=== PATIENT | female | born 1945 | race Caucasian/White ===

== ENCOUNTER 2018-09-09 10:04 | Inpatient (IN) | payer MEDICARE ==
--- NOTE | 2018-09-09 10:49 | PDOC ---
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) Past History - Past Medical History Allergies/Adverse Reactions: Allergies Allergy/AdvReac Type Severity Reaction Status Date / Time No Known Allergies Allergy Verified 09/09/18 10:10 Home Medications: Ambulatory Orders Aspirin Coated [Ecotrin -] 81 mg PO DAILY #30 tablet.ec 02/15/16 Clopidogrel Bisulfate [Plavix -] 75 mg PO DAILY #30 tablet 02/15/16 Levothyroxine [Synthroid -] 75 mcg PO DAILY@0700 #30 tablet 02/15/16 Nebivolol [Bystolic -] 10 mg PO DAILY #30 tab 02/15/16 Ranolazine [Ranexa -] 1,000 mg PO BID #30 tab 02/15/16 metFORMIN HCL [Glucophage -] 500 mg PO BID@0700,1630 #30 tablet 02/15/16 levoFLOXacin [Levaquin -] 250 mg PO DAILY #7 tablet 09/16/17 Cardiac Disorders: Yes COPD: No Diabetes: Yes HTN: Yes Hypercholesterolemia: Yes - Surgical History Abdominal Surgery: Yes (HERNIA) Appendectomy: Yes Cardiac Surgery: Yes (STENT) - Suicide/Smoking/Psychosocial Hx Smoking History: Never smoked Have you smoked in the past 12 months: No Information on smoking cessation initiated: No Hx Alcohol Use: No Drug/Substance Use Hx: No Substance Use Type: None *Physical Exam - Vital Signs Last Vital Signs Temp Pulse Resp BP Pulse Ox 98.4 F 56 L 16 150/96 100 09/09/18 10:11 09/09/18 10:11 09/09/18 10:11 09/09/18 10:11 09/09/18 10:11 - Physical Exam General Appearance: No: Apparent Distress HEENT: positive: EOMI, CINDY, Other (no nystagmus) Respiratory/Chest: positive: Lungs Clear, Normal Breath Sounds. negative: Respiratory Distress Cardiovascular: positive: Regular Rhythm, Regular Rate, S1, S2. negative: Murmur Gastrointestinal/Abdominal: positive: Normal Bowel Sounds, Soft. 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 negative: Sensory Deficit, Confused, Disoriented ED Treatment Course - LABORATORY CBC & Chemistry Diagram: 09/09/18 11:06 09/09/18 12:04 - ADDITIONAL ORDERS Additional order review: Laboratory Results 09/09/18 10:44 POC Glucometer 180 09/09/18 10:44 POC Glucometer 180 Medical Decision Making - Medical Decision Making 73 y/o F poor historian hx of HTN, NIDDM, hypothyroidism, CAD s/p PCI x1 presents with nausea, feeling off-balance and B/L temporal KAT x 4 days. Also states her BP was high at home, but unsure of how high and uncertain of what BP meds she currently takes. Does not describe dizziness as feeling lightheaded or vertiginous in nature; states dizziness is mild in nature and can be worse with standing up. Denies fever, sob, cp, abd pain, n/v, visual changes, numbness/ tingling/weakness of extremities. PE with no focal deficits FS checked and was 180 Consider ACS, infection Plan: Labs, EKG, orthostats 09/09/18 10:49 EKG shows sinus bradycardia at 55 bpm, 1st degree AV block 09/09/18 11:38 Orthostats: lying BP 168/55, HR 65 sitting BP 155/52, HR 56 standing BP 159/69, HR 76 Given orthostatic, was started on 1 L of NS fluids Later labs returned, with sodium of 121; corrected Na is 122 Patient's meds reviewed and not on diuretics; also does not appear fluid overloaded Patient to be admitted for further management Serum and urine osmolality added on D/W Dr. Hwang and patient admitted; IVF stopped given hyponatremia 09/09/18 13:31 *DC/Admit/Observation/Transfer Diagnosis at time of Disposition: Hyponatremia - Discharge Dispostion Condition at time of disposition: Stable Decision to Admit order: Yes - Referrals Referrals: Darrius Holman MD [Primary Care Provider] - - Patient Instructions - Post Discharge Activity
[2018-09-09 11:25] LABS: BASO % 0.8 % (0-2.0); EOS % 5.8 % (0-4.5); HEMATOCRIT 35.2 % (32.4-45.2); HEMOGLOBIN 12.2 GM/dL (10.7-15.3); MCHC 34.7 g/dl (32.0-36.0); MEAN CELL VOLUME 89.4 fl (80-96); MEAN PLT VOLUME 7.5 fl (7.5-11.1); MONO % 8.1 % (3.8-10.2); NEUT % 63.3 % (42.8-82.8); PLATELET COUNT 428 K/MM3 (134-434); RBC 3.93 M/mm3 (3.60-5.2); RDW 13.4 % (11.6-15.6)
[2018-09-09] MEDS ORDERED: SODIUM CHLORIDE 1,000 ML IV STA (12:04)
[2018-09-09 12:08] LABS: EPI CELLS 2.8 /HPF (0-5/HPF); HYALINE CASTS 2 /lpf (0-8); PH,URINE 5.5 (5.0-8.0); URINE APPEARANCE CLEAR; URINE BILIRUBIN NEGATIVE (NEGATIVE); URINE COLOR YELLOW; URINE GLUCOSE (UA) NEGATIVE (NEGATIVE); URINE KETONE NEGATIVE (NEGATIVE); URINE LEUK ESTERASE 1+ (NEGATIVE); URINE NITRITE NEGATIVE (NEGATIVE); URINE PROTEIN NEGATIVE (NEGATIVE); URINE RBC 1 /hpf (0-4); URINE UROBILINOGEN 0.2 mg/dL (0.2-1.0); URINE WBC 12 /hpf (0-5)
[2018-09-09 13:05] LABS: ALBUMIN 4.2 g/dl (3.4-5.0); ALK PHOS 67 U/L (45-117); ANION GAP 6 MMOL/L (8-16); BILIRUBIN,TOTAL 0.6 mg/dL (0.2-1); BLOOD UREA NITROGEN 16.9 mg/dL (7-18); CALCIUM 9.5 mg/dL (8.5-10.1); CHLORIDE 90 mmol/L (98-107); CO2 25 mmol/L (21-32); CREATININE 1.1 mg/dL (0.55-1.3); GLUCOSE,RANDOM 123 mg/dL (74-106); POTASSIUM 5.1 mmol/L (3.5-5.1); SGOT/AST 15 U/L (15-37); SGPT/ALT 22 U/L (13-61); SODIUM 121 mmol/L (136-145); TOT PROT 7.4 g/dl (6.4-8.2)
[2018-09-09 15:57] VITALS: BMI 22.6
[2018-09-09] MEDS ORDERED: cefTRIAXone SODIUM 1 GM VIAL ONE (16:00)
[2018-09-09] MEDS ORDERED: DEXTROSE 5%-WATER - 50 ML IVPB ONE (16:01)
[2018-09-09] MEDS: ASPIRIN COATED 81 MG TABLET.EC PO SCH (16:04)
[2018-09-09] MEDS: CEFTRIAXONE 1 GM in DEXTROSE 5%-WATER - 50 ML IVPB SCH (16:04)
[2018-09-09] MEDS: metFORMIN HCL 500 MG TABLET (FP) PO SCH (16:04)
[2018-09-09] MEDS: CLOPIDOGREL BISULFATE 75 MG TABLET (FP) PO SCH (16:04)
[2018-09-09] MEDS ORDERED: MELATONIN 5 MG TABLETS PO PRN (16:10)
[2018-09-09] MEDS: INSULIN SLIDING SCALE (NOVOLOG) 1 VIAL SQ SCH ×2 (16:35→21:55)
--- NOTE | 2018-09-09 16:51 | CONSULT ---
Consult Consult Specialty:: Nephrology Reason for Consultation:: hyponatremia - History of Present Illness Chief Complaint: nausea and loss of balance History of Present Illness: Pt is a 73 year old female with pmhx of DM, HTN, hypothyroidism, and CAD who presents with nausea and loss of balance. She was found to be hyponatremic and I was called to evaluate her. She says that she has not had much appetite and has not been eating much food. She says that she tried to drink alot of water. She was not able to quantify how much but based on her description of the number of glasses she likely drinks more than three liters. She denies headache. She does feel that she has loss of balance. She denies dysuria or hematuria. She denies visual changes. - History Source History Provided By: Patient, Medical Record - Past Medical History Cardio/Vascular: Yes: CAD, HTN, Hyperlipdemia Gastrointestinal: Yes: GERD Endocrine: Yes: Diabetes Mellitus, Hypothyroidism - Past Surgical History Past Surgical History: Yes: Stent - Alcohol/Substance Use Hx Alcohol Use: No - Smoking History Smoking history: Never smoked Have you smoked in the past 12 months: No Home Medications - Allergies Allergies/Adverse Reactions: Allergies Allergy/AdvReac Type Severity Reaction Status Date / Time No Known Allergies Allergy Verified 09/09/18 10:10 - Home Medications Home Medications: Ambulatory Orders Aspirin Coated [Ecotrin -] 81 mg PO DAILY #30 tablet.ec 02/15/16 Clopidogrel Bisulfate [Plavix -] 75 mg PO DAILY #30 tablet 02/15/16 Levothyroxine [Synthroid -] 75 mcg PO DAILY@0700 #30 tablet 02/15/16 Nebivolol [Bystolic -] 10 mg PO DAILY #30 tab 02/15/16 Ranolazine [Ranexa -] 1,000 mg PO BID #30 tab 02/15/16 metFORMIN HCL [Glucophage -] 500 mg PO BID@0700,1630 #30 tablet 02/15/16 levoFLOXacin [Levaquin -] 250 mg PO DAILY #7 tablet 09/16/17 Family Disease History - Family Disease History Family History: Denies Review of Systems - Review of Systems Constitutional: reports: Loss of Appetite, Malaise. denies: Unintentional Wgt. Loss Eyes: reports: No Symptoms HENT: reports: No Symptoms Neck: reports: No Symptoms Cardiovascular: reports: No Symptoms Respiratory: reports: No Symptoms Gastrointestinal: reports: No Symptoms Genitourinary: reports: No Symptoms Musculoskeletal: reports: No Symptoms Integumentary: reports: No Symptoms Neurological: reports: No Symptoms Endocrine: reports: No Symptoms Hematology/Lymphatic: reports: No Symptoms Psychiatric: reports: No Symptoms Physical Exam Vital Signs: Vital Signs Temperature 97.9 F 09/09/18 15:51 Pulse Rate 63 09/09/18 15:51 Respiratory Rate 18 09/09/18 15:51 Blood Pressure 161/60 09/09/18 15:51 O2 Sat by Pulse Oximetry (%) 97 09/09/18 15:14 Constitutional: Yes: Calm Eyes: Yes: Conjunctiva Clear HENT: Yes: Atraumatic Neck: Yes: Supple Cardiovascular: Yes: S1, S2 Respiratory: Yes: CTA Bilaterally Gastrointestinal: Yes: Normal Bowel Sounds Renal/: Yes: WNL Musculoskeletal: Yes: WNL Edema: No Integumentary: Yes: WNL Neurological: Yes: Oriented Psychiatric: Yes: Oriented Labs: CBC, BMP 09/09/18 11:06 09/09/18 12:04 Laboratory Tests 09/09/18 09/09/18 09/09/18 11:06 11:33 11:33 WBC 9.0 Hgb 12.2 Sodium Potassium Chloride Carbon Dioxide Serum Osmolality Ur Specific [place] 1.008 L Urine Osmolality 241 L 09/09/18 09/09/18 12:04 12:04 WBC Hgb Sodium 121 L Potassium 5.1 Chloride 90 L Carbon Dioxide 25 Serum Osmolality 253 L Ur Specific [place] Urine Osmolality Problem List - Problems (1) Hyponatremia Code(s): E87.1 - HYPO-OSMOLALITY AND HYPONATREMIA Assessment/Plan Current Medications Generic Name Dose Route Start Last Admin Trade Name Freq PRN Reason Stop Dose Admin Aspirin 81 mg 09/09/18 15:15 09/09/18 16:04 Ecotrin - PO 81 mg DAILY JEREMY Administration Clopidogrel Bisulfate 75 mg 09/09/18 15:15 09/09/18 16:04 Plavix - PO 75 mg DAILY JEREMY Administration Ceftriaxone Sodium 1 gm/ 50 mls @ 200 mls/hr 09/09/18 15:15 09/09/18 16:04 Dextrose IVPB 200 mls/hr DAILY JEREMY Administration Protocol Insulin Aspart 1 vial 09/09/18 16:30 09/09/18 16:35 Novolog Vial Sliding Scale - SQ Not Given ACHS JEREMY Protocol Levothyroxine Sodium 75 mcg 09/10/18 07:00 Synthroid - PO DAILY@0700 JEREMY Melatonin 5 mg 09/09/18 16:10 Melatonin PO HS PRN INSOMNIA Metformin HCl 500 mg 09/09/18 16:30 09/09/18 16:04 Glucophage - PO 500 mg BID@0700,1630 JEREMY Administration Nebivolol 10 mg 09/09/18 15:15 Bystolic - PO DAILY JEREMY Ranolazine 1,000 mg 09/09/18 22:00 Ranexa - PO BID JEREMY Impression 1. hyponatremia - euvolemic 2. htn 3. dm 4. nausea 5. loss of balance 6. hypothyroidism 7. cad Plan - hyponatermia likely in part from polydipsia - urine osm and SG are low - restrict free water - repeat bmp and call me with results - pt was given saline in the ER - hold off fluids for now until we review labs - check urine sodium
[2018-09-09 17:50] LABS: ALBUMIN 4.5 g/dl (3.4-5.0); BILIRUBIN,TOTAL 0.6 mg/dL (0.2-1); BLOOD UREA NITROGEN 13.3 mg/dL (7-18); CALCIUM 9.8 mg/dL (8.5-10.1); POTASSIUM 4.5 mmol/L (3.5-5.1); TOT PROT 8.2 g/dl (6.4-8.2)
[2018-09-09] MEDS ORDERED: DEXTROSE 5%-WATER - 1,000 ML IV SCH (18:15)
[2018-09-09] MEDS: NEBIVOLOL 10 MG TABLET (FP) PO SCH (18:34)
[2018-09-09] MEDS ORDERED: INSULIN (NOVOLOG) ASPART 100 UNITS/ML 10ML VIAL ONE (21:04)
[2018-09-09] MEDS ORDERED: RANOLAZINE E.R. 500 MG TABLET (FP) ONE (21:04)
[2018-09-09 21:25] LABS: BILIRUBIN,TOTAL 0.6 mg/dL (0.2-1); CALCIUM 9.3 mg/dL (8.5-10.1); CREATININE 1.1 mg/dL (0.55-1.3); POTASSIUM 4.7 mmol/L (3.5-5.1); TOT PROT 7.2 g/dl (6.4-8.2)
[2018-09-09] MEDS: RANOLAZINE E.R. 1,000 MG TABLET (FP) PO SCH (21:58)
--- NOTE | 2018-09-09 22:34 | HP ---
Admitting History and Physical - Admission History of Present Illness: Pt is a 73 year old female with pmhx of DM, HTN, hypothyroidism, and CAD who presents with nausea and loss of balance. She was found to be hyponatremic w/ a Na+ of 121. She says that she has not had much appetite and has not been eating much food. She says that she tried to drink alot of water. She denies headache. She does feel that she has loss of balance and lightheaded and not feeling like herself.. She denies dysuria or hematuria. She denies visual changes. - Past Medical History Cardiovascular: Yes: CAD, HTN, Hyperlipdemia Gastrointestinal: Yes: GERD Endocrine: Yes: Diabetes Mellitus, Hypothyroidism - Past Surgical History Past Surgical History: Yes: Stent - Smoking History Smoking history: Never smoked Have you smoked in the past 12 months: No - Alcohol/Substance Use Hx Alcohol Use: No Home Medications - Allergies Allergies/Adverse Reactions: Allergies Allergy/AdvReac Type Severity Reaction Status Date / Time No Known Allergies Allergy Verified 09/09/18 10:10 - Home Medications Home Medications: Ambulatory Orders Aspirin Coated [Ecotrin -] 81 mg PO DAILY #30 tablet.ec 02/15/16 Clopidogrel Bisulfate [Plavix -] 75 mg PO DAILY #30 tablet 02/15/16 Levothyroxine [Synthroid -] 75 mcg PO DAILY@0700 #30 tablet 02/15/16 Nebivolol [Bystolic -] 10 mg PO DAILY #30 tab 02/15/16 Ranolazine [Ranexa -] 1,000 mg PO BID #30 tab 02/15/16 metFORMIN HCL [Glucophage -] 500 mg PO BID@0700,1630 #30 tablet 02/15/16 levoFLOXacin [Levaquin -] 250 mg PO DAILY #7 tablet 09/16/17 Family Disease History - Family Disease History Family History: Unremarkable Review of Systems - Review of Systems Constitutional: reports: Weakness Eyes: reports: No Symptoms HENT: reports: No Symptoms Neck: reports: No Symptoms Cardiovascular: reports: No Symptoms Respiratory: reports: No Symptoms Gastrointestinal: reports: No Symptoms Genitourinary: reports: No Symptoms Physical Examination Vital Signs: Vital Signs Temperature 97.5 F L 09/09/18 18:00 Pulse Rate 55 L 09/09/18 18:00 Respiratory Rate 18 09/09/18 18:00 Blood Pressure 148/49 L 09/09/18 18:00 O2 Sat by Pulse Oximetry (%) 97 09/09/18 15:14 Constitutional: Yes: No Distress HENT: Yes: WNL Neck: Yes: WNL, Supple Cardiovascular: Yes: WNL, Regular Rate and Rhythm Respiratory: Yes: WNL, Regular, CTA Bilaterally Gastrointestinal: Yes: WNL, Normal Bowel Sounds, Soft Musculoskeletal: Yes: WNL Extremities: Yes: WNL Edema: No Neurological: Yes: WNL, Alert, Oriented ...Motor Strength: WNL Labs: CBC, BMP 09/09/18 11:06 09/09/18 20:40 Problem List - Problems (1) Altered mental status Assessment/Plan: Metabolic encephalopathy Correct NA+ PT eval Code(s): R41.82 - ALTERED MENTAL STATUS, UNSPECIFIED (2) UTI (urinary tract infection) Assessment/Plan: IV ceftriaxone Monitor urine culture Code(s): N39.0 - URINARY TRACT INFECTION, SITE NOT SPECIFIED Qualifiers: Urinary tract infection type: acute pyelonephritis Qualified Code(s): N10 - Acute pyelonephritis (3) Hyponatremia Assessment/Plan: Renal consult Code(s): E87.1 - HYPO-OSMOLALITY AND HYPONATREMIA (4) Coronary artery disease Code(s): I25.10 - ATHSCL HEART DISEASE OF [place] CORONARY ARTERY W/O ANG PCTRS Qualifiers: Coronary Disease-Associated Artery/Lesion type: [place] artery [place] vs. transplanted heart: [place] heart Associated angina: with stable angina Qualified Code(s): I25.118 - Atherosclerotic heart disease of [place] coronary artery with other forms of angina pectoris (5) Diabetes mellitus Code(s): E11.9 - TYPE 2 DIABETES MELLITUS WITHOUT COMPLICATIONS Qualifiers: Diabetes mellitus type: type 2 Chronic kidney disease stage: stage 2 (mild ) (6) GERD (gastroesophageal reflux disease) Code(s): K21.9 - GASTRO-ESOPHAGEAL REFLUX DISEASE WITHOUT ESOPHAGITIS (7) Hypothyroidism Assessment/Plan: Cont levothyroxine Code(s): E03.9 - HYPOTHYROIDISM, UNSPECIFIED Qualifiers: Hypothyroidism type: unspecified Qualified Code(s): E03.9 - Hypothyroidism , unspecified
[2018-09-10] MEDS: diphenhydrAMINE HCL 25 MG CAPSULE (FP) PO PRN (01:49)
[2018-09-10] MEDS: INSULIN SLIDING SCALE (NOVOLOG) 1 VIAL SQ SCH ×4 (06:05→22:33)
[2018-09-10] MEDS: LEVOTHYROXINE NA 75 MCG TABLET (FP) PO SCH (06:48)
[2018-09-10] MEDS: metFORMIN HCL 500 MG TABLET (FP) PO SCH ×2 (06:48→15:58)
--- NOTE | 2018-09-10 07:11 | HOSP ---
Subjective - Review of Symptoms Events since last encounter: Hospitalist Encounter Notified by the RN patient had an unwitnessed fall Production Recovery Operator used at bedside, patient reports feeling dizzy and falling while in the bathroom. Patient reports hitting the L- parietal aspect of her head, she denies LOC. She reports pain to her right lateral aspect of her thigh. PE performed see EMR Plan: Head CT Xray of R-hip/Leg Icepacks Tylenol prn Day RN to update Primary regarding this AMs events HEENT: Yes: Other (head pain) Musculoskeletal: Yes: Extremity Pain (right thigh) Physical Examination Vital Signs: Vital Signs Temperature 97.8 F 09/10/18 05:30 Pulse Rate 55 L 09/10/18 05:30 Respiratory Rate 18 09/10/18 05:30 Blood Pressure 140/60 09/10/18 05:30 O2 Sat by Pulse Oximetry (%) 97 09/09/18 21:00 Constitutional: Yes: No Distress, Calm Eyes: Yes: WNL, Conjunctiva Clear, EOM Intact, PERRL HENT: Yes: Atraumatic, Normocephalic Neck: Yes: WNL, Supple, Trachea Midline Cardiovascular: Yes: WNL, Regular Rate and Rhythm, S1, S2 Respiratory: Yes: WNL, Regular, CTA Bilaterally Gastrointestinal: Yes: WNL, Normal Bowel Sounds, Soft Renal/: Yes: WNL Breast(s): Yes: WNL Musculoskeletal: Yes: Other (right thigh/leg) Extremities: Yes: WNL Edema: No Peripheral Pulses WNL: Yes Neurological: Yes: Alert, Oriented, Cran Nerves II-XII Intact, Unsteady Gait ...Motor Strength: WNL Psychiatric: Yes: WNL, Alert, Oriented Labs: CBC, BMP 09/09/18 11:06 09/09/18 20:40 Laboratory Results - last 24 hr 09/09/18 09/09/18 09/09/18 10:44 11:06 11:06 WBC 9.0 RBC 3.93 Hgb 12.2 Hct 35.2 MCV 89.4 MCH 31.0 MCHC 34.7 RDW 13.4 Plt Count 428 D MPV 7.5 D Absolute Neuts (auto) 5.7 Neutrophils % 63.3 D Lymphocytes % 22.0 D Monocytes % 8.1 Eosinophils % 5.8 H D Basophils % 0.8 D Nucleated RBC % 0 Sodium Cancelled Potassium Cancelled Chloride Cancelled Carbon Dioxide Cancelled Anion Gap Cancelled BUN Cancelled Creatinine Cancelled Est GFR (CKD-EPI)AfAm Cancelled Est GFR (CKD-EPI)NonAf Cancelled POC Glucometer 180 Random Glucose Cancelled Serum Osmolality Calcium Cancelled Total Bilirubin Cancelled AST Cancelled ALT Cancelled Alkaline Phosphatase Cancelled Troponin I Cancelled Total Protein Cancelled Albumin Cancelled Urine Color Urine Appearance Urine pH Ur Specific [place] Urine Protein Urine Glucose (UA) Urine Ketones Urine Blood Urine Nitrite Urine Bilirubin Urine Urobilinogen Ur Leukocyte Esterase Urine WBC (Auto) Urine RBC (Auto) Urine Casts (Auto) U Pathogenic Cast Auto U Epithel Cells (Auto) Urine Bacteria (Auto) Urine Osmolality Ur Random Sodium Ur Random Potassium Ur Random Chloride 09/09/18 09/09/18 09/09/18 11:33 11:33 12:04 WBC RBC Hgb Hct MCV MCH MCHC RDW Plt Count MPV Absolute Neuts (auto) Neutrophils % Lymphocytes % Monocytes % Eosinophils % Basophils % Nucleated RBC % Sodium 121 L Potassium 5.1 Chloride 90 L Carbon Dioxide 25 Anion Gap 6 L BUN 16.9 Creatinine 1.1 Est GFR (CKD-EPI)AfAm 57.28 Est GFR (CKD-EPI)NonAf 49.42 POC Glucometer Random Glucose 123 H Serum Osmolality Calcium 9.5 Total Bilirubin 0.6 AST 15 ALT 22 Alkaline Phosphatase 67 Troponin I < 0.02 Total Protein 7.4 Albumin 4.2 Urine Color Yellow Urine Appearance Clear Urine pH 5.5 Ur Specific [place] 1.008 L Urine Protein Negative Urine Glucose (UA) Negative Urine Ketones Negative Urine Blood Negative Urine Nitrite Negative Urine Bilirubin Negative Urine Urobilinogen 0.2 Ur Leukocyte Esterase 1+ H Urine WBC (Auto) 12 Urine RBC (Auto) 1 Urine Casts (Auto) 2 U Pathogenic Cast Auto No Result Required. U Epithel Cells (Auto) 2.8 Urine Bacteria (Auto) 998.0 Urine Osmolality 241 L Ur Random Sodium Ur Random Potassium Ur Random Chloride 09/09/18 09/09/18 09/09/18 12:04 16:09 17:00 WBC RBC Hgb Hct MCV MCH MCHC RDW Plt Count MPV Absolute Neuts (auto) Neutrophils % Lymphocytes % Monocytes % Eosinophils % Basophils % Nucleated RBC % Sodium 128 L Potassium 4.5 Chloride 95 L Carbon Dioxide 25 Anion Gap 8 BUN 13.3 Creatinine 1.0 Est GFR (CKD-EPI)AfAm 64.27 Est GFR (CKD-EPI)NonAf 55.45 POC Glucometer 149 Random Glucose 135 H Serum Osmolality 253 L Calcium 9.8 Total Bilirubin 0.6 AST 16 ALT 21 Alkaline Phosphatase 77 Troponin I Total Protein 8.2 Albumin 4.5 Urine Color Urine Appearance Urine pH Ur Specific [place] Urine Protein Urine Glucose (UA) Urine Ketones Urine Blood Urine Nitrite Urine Bilirubin Urine Urobilinogen Ur Leukocyte Esterase Urine WBC (Auto) Urine RBC (Auto) Urine Casts (Auto) U Pathogenic Cast Auto U Epithel Cells (Auto) Urine Bacteria (Auto) Urine Osmolality Ur Random Sodium Ur Random Potassium Ur Random Chloride 09/09/18 09/09/18 09/09/18 18:00 20:40 21:52 WBC RBC Hgb Hct MCV MCH MCHC RDW Plt Count MPV Absolute Neuts (auto) Neutrophils % Lymphocytes % Monocytes % Eosinophils % Basophils % Nucleated RBC % Sodium 129 L Potassium 4.7 Chloride 98 Carbon Dioxide 24 Anion Gap 7 L BUN 14.0 Creatinine 1.1 Est GFR (CKD-EPI)AfAm 57.28 Est GFR (CKD-EPI)NonAf 49.42 POC Glucometer 119 Random Glucose 101 Serum Osmolality Calcium 9.3 Total Bilirubin 0.6 AST 15 ALT 19 Alkaline Phosphatase 66 Troponin I Total Protein 7.2 Albumin 4.0 Urine Color Urine Appearance Urine pH Ur Specific [place] Urine Protein Urine Glucose (UA) Urine Ketones Urine Blood Urine Nitrite Urine Bilirubin Urine Urobilinogen Ur Leukocyte Esterase Urine WBC (Auto) Urine RBC (Auto) Urine Casts (Auto) U Pathogenic Cast Auto U Epithel Cells (Auto) Urine Bacteria (Auto) Urine Osmolality Ur Random Sodium 53 Ur Random Potassium < 9.0 L Ur Random Chloride 52 L 09/10/18 06:00 WBC RBC Hgb Hct MCV MCH MCHC RDW Plt Count MPV Absolute Neuts (auto) Neutrophils % Lymphocytes % Monocytes % Eosinophils % Basophils % Nucleated RBC % Sodium Potassium Chloride Carbon Dioxide Anion Gap BUN Creatinine Est GFR (CKD-EPI)AfAm Est GFR (CKD-EPI)NonAf POC Glucometer 142 Random Glucose Serum Osmolality Calcium Total Bilirubin AST ALT Alkaline Phosphatase Troponin I Total Protein Albumin Urine Color Urine Appearance Urine pH Ur Specific [place] Urine Protein Urine Glucose (UA) Urine Ketones Urine Blood Urine Nitrite Urine Bilirubin Urine Urobilinogen Ur Leukocyte Esterase Urine WBC (Auto) Urine RBC (Auto) Urine Casts (Auto) U Pathogenic Cast Auto U Epithel Cells (Auto) Urine Bacteria (Auto) Urine Osmolality Ur Random Sodium Ur Random Potassium Ur Random Chloride Intake & Output 09/07/18 09/08/18 09/09/18 09/10/18 23:59 23:59 23:59 23:59 Intake Total 1000 400 Balance 1000 400 Weight 52.662 kg Current Medications Generic Name Dose Route Start Last Admin Trade Name Freq PRN Reason Stop Dose Admin Aspirin 81 mg 09/09/18 15:15 09/09/18 16:04 Ecotrin - PO 81 mg DAILY JEREMY Administration Clopidogrel Bisulfate 75 mg 09/09/18 15:15 09/09/18 16:04 Plavix - PO 75 mg DAILY JEREMY Administration Diphenhydramine HCl 25 mg 09/10/18 01:22 09/10/18 01:49 Benadryl - PO 25 mg HS PRN Administration INSOMNIA Ceftriaxone Sodium 1 gm/ 50 mls @ 200 mls/hr 09/09/18 15:15 09/09/18 16:04 Dextrose IVPB 200 mls/hr DAILY JEREMY Administration Protocol Dextrose 1,000 mls @ 100 mls/hr 09/09/18 18:15 09/09/18 18:34 D5w - IV 100 mls/hr ASDIR JEREMY Administration Insulin Aspart 1 vial 09/09/18 16:30 09/10/18 06:05 Novolog Vial Sliding Scale - SQ Not Given ACHS JEREMY Protocol Levothyroxine Sodium 75 mcg 09/10/18 07:00 09/10/18 06:48 Synthroid - PO 75 mcg DAILY@0700 JEREMY Administration Melatonin 5 mg 09/09/18 16:10 09/09/18 21:58 Melatonin PO 5 mg HS PRN Administration INSOMNIA Metformin HCl 500 mg 09/09/18 16:30 09/10/18 06:48 Glucophage - PO 500 mg BID@0700,1630 JEREMY Administration Nebivolol 10 mg 09/09/18 15:15 09/09/18 18:34 Bystolic - PO 10 mg DAILY JEREMY Administration Ranolazine 1,000 mg 09/09/18 22:00 09/09/18 21:58 Ranexa - PO 1,000 mg BID JEREMY Administration
--- NOTE | 2018-09-10 07:14 | FALL ---
Fall Exam - Event Witnessed fall: No Location of Fall: Bathroom Fall from: unknown - Pre-Fall Mental Status: Alert Current Medications: Current Medications Generic Name Dose Route Start Last Admin Trade Name Mahi PRN Reason Stop Dose Admin Aspirin 81 mg 09/09/18 15:15 09/09/18 16:04 Ecotrin - PO 81 mg DAILY JEREMY Administration Clopidogrel Bisulfate 75 mg 09/09/18 15:15 09/09/18 16:04 Plavix - PO 75 mg DAILY JEREMY Administration Diphenhydramine HCl 25 mg 09/10/18 01:22 09/10/18 01:49 Benadryl - PO 25 mg HS PRN Administration INSOMNIA Ceftriaxone Sodium 1 gm/ 50 mls @ 200 mls/hr 09/09/18 15:15 09/09/18 16:04 Dextrose IVPB 200 mls/hr DAILY JEREMY Administration Protocol Dextrose 1,000 mls @ 100 mls/hr 09/09/18 18:15 09/09/18 18:34 D5w - IV 100 mls/hr ASDIR JEREMY Administration Insulin Aspart 1 vial 09/09/18 16:30 09/10/18 06:05 Novolog Vial Sliding Scale - SQ Not Given ACHS JEREMY Protocol Levothyroxine Sodium 75 mcg 09/10/18 07:00 09/10/18 06:48 Synthroid - PO 75 mcg DAILY@0700 JEREMY Administration Melatonin 5 mg 09/09/18 16:10 09/09/18 21:58 Melatonin PO 5 mg HS PRN Administration INSOMNIA Metformin HCl 500 mg 09/09/18 16:30 09/10/18 06:48 Glucophage - PO 500 mg BID@0700,1630 JEREMY Administration Nebivolol 10 mg 09/09/18 15:15 09/09/18 18:34 Bystolic - PO 10 mg DAILY JEREMY Administration Ranolazine 1,000 mg 09/09/18 22:00 09/09/18 21:58 Ranexa - PO 1,000 mg BID JEREMY Administration - Post-Fall Patient Outcome: Pain Only Exam Findings: Patient is alert and oriented x3, tenderness to L- parietal aspect of head. neck supple, non-tender, Cardiac- RRR, S1, S2 no MRG, Lungs CTAB , Abd- soft, nontender, BS present. Extremities - FROM, +TN to R-thigh/leg. Pelvic/Hip- non-tender, no crepitus Treatment: Analgesia, Ice Pack Vital Signs: Vital Signs Temperature 97.8 F 09/10/18 05:30 Pulse Rate 55 L 09/10/18 05:30 Respiratory Rate 18 09/10/18 05:30 Blood Pressure 140/60 09/10/18 05:30 O2 Sat by Pulse Oximetry (%) 97 09/09/18 21:00 LOC Post-Fall: Unchanged Identify factors for HIGH RISK for Head Injury: Known to have hit head
[2018-09-10] MEDS ORDERED: ACETAMINOPHEN 325 MG TABLET (FP) PO ONE (07:15)
[2018-09-10 08:36] LABS: ALBUMIN 3.8 g/dl (3.4-5.0); BILIRUBIN,TOTAL 0.9 mg/dL (0.2-1); BLOOD UREA NITROGEN 13.6 mg/dL (7-18); CALCIUM 9.4 mg/dL (8.5-10.1); CREATININE 0.9 mg/dL (0.55-1.3); POTASSIUM 4.6 mmol/L (3.5-5.1); TOT PROT 7.1 g/dl (6.4-8.2)
[2018-09-10] MEDS ORDERED: RANOLAZINE E.R. 500 MG TABLET (FP) ONE ×2 (08:50→20:54)
[2018-09-10] MEDS ORDERED: cefTRIAXone SODIUM 1 GM VIAL ONE (08:51)
[2018-09-10] MEDS ORDERED: DEXTROSE 5%-WATER - 50 ML IVPB ONE (08:51)
[2018-09-10] MEDS: NEBIVOLOL 10 MG TABLET (FP) PO SCH (09:05)
[2018-09-10] MEDS: RANOLAZINE E.R. 1,000 MG TABLET (FP) PO SCH ×2 (09:05→22:01)
[2018-09-10] MEDS: CEFTRIAXONE 1 GM in DEXTROSE 5%-WATER - 50 ML IVPB SCH (09:06)
--- NOTE | 2018-09-10 12:00 | EKG ---
Test Reason : Blood Pressure : / mmHG Vent. Rate : 055 BPM Atrial Rate : 055 BPM P-R Int : 214 ms QRS Dur : 092 ms QT Int : 406 ms P-R-T Axes : 057 -09 035 degrees QTc Int : 388 ms SINUS BRADYCARDIA WITH 1ST DEGREE A-V BLOCK WHEN COMPARED WITH ECG OF 16-SEP-2017 10:46, VT INTERVAL HAS INCREASED CRITERIA FOR INFERIOR INFARCT ARE NO LONGER PRESENT Confirmed by CHASTITY GEORGE MD ([id number]) on 09/10/2018 12:00:29 PM Referred By: Confirmed By:CHASTITY GEORGE MD
--- NOTE | 2018-09-10 14:41 | PN ---
Progress Note, Physician History of Present Illness: Pt seen and examined at bedside. She is awake and alert. She denies dizziness. - Current Medication List Current Medications: Active Medications Aspirin (Ecotrin -) 81 mg PO DAILY [facility] Last Admin: 09/09/18 16:04 Dose: 81 mg Atorvastatin Calcium (Lipitor -) 40 mg PO HS JEREMY Clopidogrel Bisulfate (Plavix -) 75 mg PO DAILY [facility] Last Admin: 09/09/18 16:04 Dose: 75 mg Diphenhydramine HCl (Benadryl -) 25 mg PO HS PRN PRN Reason: INSOMNIA Last Admin: 09/10/18 01:49 Dose: 25 mg Ceftriaxone Sodium 1 gm/ (Dextrose) 50 mls @ 200 mls/hr IVPB DAILY [facility]; Protocol Last Admin: 09/10/18 09:06 Dose: 200 mls/hr Insulin Aspart (Novolog Vial Sliding Scale -) 1 vial SQ ACHS [facility]; Protocol Last Admin: 09/10/18 11:11 Dose: Not Given Levothyroxine Sodium (Synthroid -) 75 mcg PO DAILY@0700 [facility] Last Admin: 09/10/18 06:48 Dose: 75 mcg Metformin HCl (Glucophage -) 500 mg PO BID@0700,1630 [facility] Last Admin: 09/10/18 06:48 Dose: 500 mg Nebivolol (Bystolic -) 10 mg PO DAILY [facility] Last Admin: 09/10/18 09:05 Dose: 10 mg Ranolazine (Ranexa -) 1,000 mg PO BID [facility] Last Admin: 09/10/18 09:05 Dose: 1,000 mg - Objective Vital Signs: Vital Signs Temperature 98 F 09/10/18 11:14 Pulse Rate 55 L 09/10/18 11:14 Respiratory Rate 18 09/10/18 11:14 Blood Pressure 130/60 09/10/18 11:14 O2 Sat by Pulse Oximetry (%) 96 09/10/18 09:00 Constitutional: Yes: Calm Eyes: Yes: Conjunctiva Clear HENT: Yes: Atraumatic Cardiovascular: Yes: S1, S2 Respiratory: Yes: CTA Bilaterally Gastrointestinal: Yes: Soft Genitourinary: Yes: WNL Musculoskeletal: Yes: WNL Edema: No Neurological: Yes: Oriented Psychiatric: Yes: Oriented Labs: CBC, BMP 09/09/18 11:06 09/10/18 06:48 Problem List - Problems (1) Hyponatremia Code(s): E87.1 - HYPO-OSMOLALITY AND HYPONATREMIA Assessment/Plan Current Medications Generic Name Dose Route Start Last Admin Trade Name Mahi PRN Reason Stop Dose Admin Aspirin 81 mg 09/09/18 15:15 09/09/18 16:04 Ecotrin - PO 81 mg DAILY JEREMY Administration Atorvastatin Calcium 40 mg 09/10/18 22:00 Lipitor - PO HS JEREMY Clopidogrel Bisulfate 75 mg 09/09/18 15:15 09/09/18 16:04 Plavix - PO 75 mg DAILY JEREMY Administration Diphenhydramine HCl 25 mg 09/10/18 01:22 09/10/18 01:49 Benadryl - PO 25 mg HS PRN Administration INSOMNIA Ceftriaxone Sodium 1 gm/ 50 mls @ 200 mls/hr 09/09/18 15:15 09/10/18 09:06 Dextrose IVPB 200 mls/hr DAILY JEREMY Administration Protocol Insulin Aspart 1 vial 09/09/18 16:30 09/10/18 11:11 Novolog Vial Sliding Scale - SQ Not Given ACHS JEREMY Protocol Levothyroxine Sodium 75 mcg 09/10/18 07:00 09/10/18 06:48 Synthroid - PO 75 mcg DAILY@0700 JEREMY Administration Metformin HCl 500 mg 09/09/18 16:30 09/10/18 06:48 Glucophage - PO 500 mg BID@0700,1630 JEREMY Administration Nebivolol 10 mg 09/09/18 15:15 09/10/18 09:05 Bystolic - PO 10 mg DAILY JEREMY Administration Ranolazine 1,000 mg 09/09/18 22:00 09/10/18 09:05 Ranexa - PO 1,000 mg BID JEREMY Administration Impression 1. hyponatremia - euvolemic 2. htn 3. dm 4. nausea 5. loss of balance 6. hypothyroidism 7. cad Plan - sodium improving - gave d5w overnight to slow rate of correction - repeat bmp and call me with results, spoke to nurse - encourage PO intake - restrict free water - check urine sodium
--- NOTE | 2018-09-10 14:43 | CON.CARD ---
Consult Consult Specialty:: Cardiology Referred by:: Danisha Hwang MD Reason for Consultation:: CAD - History of Present Illness Chief Complaint: Dizziness, gait disturbance History of Present Illness: 73-year-old Vietnamese-speaking female history of CAD s/p EMELI mid RCA, prox LCx and OM1, type 2 diabetes, hypertension, hyperlipidemia, hypothyroidism who presents with nausea, dizziness and loss of balance. She was found to be hyponatremic w/ a Na+ of 121. She says that she has not had much appetite and has not been eating much food. She says that she tried to drink alot of water. Denies chest pain, dyspnea, near or true syncope, palpitations, orthopnea, PND or LE edema. - History Source History Provided By: Medical Record Limitations to Obtaining History: Language Barrier - Past Medical History Cardio/Vascular: Yes: CAD, HTN, Hyperlipdemia Gastrointestinal: Yes: GERD Endocrine: Yes: Diabetes Mellitus, Hypothyroidism - Past Surgical History Past Surgical History: Yes: Stent - Alcohol/Substance Use Hx Alcohol Use: No - Smoking History Smoking history: Never smoked Have you smoked in the past 12 months: No Home Medications - Allergies Allergies/Adverse Reactions: Allergies Allergy/AdvReac Type Severity Reaction Status Date / Time No Known Allergies Allergy Verified 09/09/18 10:10 - Home Medications Home Medications: Ambulatory Orders Aspirin Coated [Ecotrin -] 81 mg PO DAILY #30 tablet.ec 02/15/16 Clopidogrel Bisulfate [Plavix -] 75 mg PO DAILY #30 tablet 02/15/16 Levothyroxine [Synthroid -] 75 mcg PO DAILY@0700 #30 tablet 02/15/16 Nebivolol [Bystolic -] 10 mg PO DAILY #30 tab 02/15/16 Ranolazine [Ranexa -] 1,000 mg PO BID #30 tab 02/15/16 metFORMIN HCL [Glucophage -] 500 mg PO BID@0700,1630 #30 tablet 02/15/16 levoFLOXacin [Levaquin -] 250 mg PO DAILY #7 tablet 09/16/17 Review of Systems - Review of Systems Neurological: reports: Dizziness, Unsteady Gait Vital Signs: Vital Signs Temperature 98 F 09/10/18 11:14 Pulse Rate 55 L 09/10/18 11:14 Respiratory Rate 18 09/10/18 11:14 Blood Pressure 130/60 09/10/18 11:14 O2 Sat by Pulse Oximetry (%) 96 09/10/18 09:00 Constitutional: Yes: No Distress, Calm Neck: Yes: Supple Respiratory: Yes: Regular, CTA Bilaterally Gastrointestinal: Yes: Normal Bowel Sounds, Soft Cardiovascular: Yes: Regular Rate and Rhythm JVD: No Carotid Bruit: No Heart Sounds: Yes: S1, S2 Edema: No - Other Data Labs, Other Data: CBC, BMP 09/09/18 11:06 09/10/18 06:48 Problem List - Problems (1) Gait disturbance Code(s): R26.9 - UNSPECIFIED ABNORMALITIES OF GAIT AND MOBILITY (2) Dizziness Code(s): R42 - DIZZINESS AND GIDDINESS (3) Hyponatremia Code(s): E87.1 - HYPO-OSMOLALITY AND HYPONATREMIA (4) Coronary artery disease Code(s): I25.10 - ATHSCL HEART DISEASE OF [place] CORONARY ARTERY W/O ANG PCTRS Qualifiers: Coronary Disease-Associated Artery/Lesion type: [place] artery [place] vs. transplanted heart: [place] heart Associated angina: with stable angina Qualified Code(s): I25.118 - Atherosclerotic heart disease of [place] coronary artery with other forms of angina pectoris (5) Diabetes mellitus Code(s): E11.9 - TYPE 2 DIABETES MELLITUS WITHOUT COMPLICATIONS Qualifiers: Diabetes mellitus type: type 2 Chronic kidney disease stage: stage 2 (mild ) (6) Hyperlipidemia associated with type 2 diabetes mellitus Code(s): E11.69 - TYPE 2 DIABETES MELLITUS WITH OTHER SPECIFIED COMPLICATION; E78.5 - HYPERLIPIDEMIA, UNSPECIFIED (7) Hypothyroidism Code(s): E03.9 - HYPOTHYROIDISM, UNSPECIFIED Qualifiers: Hypothyroidism type: unspecified Qualified Code(s): E03.9 - Hypothyroidism , unspecified (8) Stented coronary artery Code(s): Z95.5 - PRESENCE OF CORONARY ANGIOPLASTY IMPLANT AND GRAFT Assessment/Plan June 08, 2013: Nuclear stress: Normal MPI, LVEF 74% September 10, 2018 Normal LV and RV size and fxn, abnl LV compliance, mild MR, AR, tr -mild TR 2015 Normal LV and RV size and fxn, mild MR, mild-mod TR, tr VA June 02, 2013: Echocardiogram: Normal LV size and fxn, mild AR, tr MR and TR CT scans x 2 (reviewed): Moderate diffuse atrophy and severe, diffuse, chronic Microvascular disease. Carotid duplex doppler: extensive atheromatous disease with plaque at the Left ICA origin 60-79% stenosis. 1. Dizziness 2. LICA stenosis 3. CAD s/p PCI (EMELI), demand ischemia 4. Diastolic dysfunction 5. HTN/HCVD 6. Type 2 DM with peripheral neuropathy 7. Hyperlipidemia 8. Hypothyroidism 9. Hyponatremia-euvolemic P:1. Free water restriction with monitor NA improvement 2. Continue ASA 81 qd, Plavix 75 qd, Zocor 20 qhs, Bystolic 10 qd, Ranexa 1000 bid, resume Diovan once renal fxn stable 3. Vascular input regarding LICA stenosis, PT for gait training, DVT prophylaxis 4. Thank you for consultative opportunity
--- NOTE | 2018-09-10 15:19 | ECHO ---
Name: CHELSEA PACHECO Exam:Adult Echocardiogram Study Date: 09/10/2018 12:51 PM Age: 73 yrs Reason For Study: CVA Height: 60 in Weight: 116 lb BSA: 1.5 m2 MMode/2D Measurements & Calculations IVSd: 0.70 cm Ao root diam: 2.7 cm LVIDd: 4.1 cm LVIDs: 2.9 cm LVPWd: 0.72 cm EDV(Teich): 73.6 ml LVOT diam: 1.9 cm ESV(Teich): 32.3 ml Doppler Measurements & Calculations MV E max husam: 51.3 cm/sec Ao V2 max: 120.1 cm/sec MV A max husam: 89.8 cm/sec Ao max P.8 mmHg MV E/A: 0.57 Ao V2 mean: 78.3 cm/sec MV dec time: 0.37 sec Ao mean P.8 mmHg Ao V2 VTI: 26.7 cm SERINA(I,D): 1.7 cm2 SERINA(V,D): 1.7 cm2 LV V1 max P.9 mmHg MR max husam: 391.7 cm/sec LV V1 mean P.1 mmHg MR max P.6 mmHg LV V1 max: 68.8 cm/sec LV V1 mean: 50.7 cm/sec LV V1 VTI: 16.1 cm SV(LVOT): 46.5 ml TR max husam: 160.8 cm/sec TR max P.3 mmHg Med Peak E' Husam: 4.2 cm/sec Med E/e': 12.3 Lat Peak E' Husam: 7.2 cm/sec Lat E/e': 7.1 Left Ventricle Ejection Fraction = 60-65%. Left ventricular systolic function is normal. The transmitral spectral Do ppler flow pattern is suggestive of impaired LV relaxation. Right Ventricle The right ventricle is normal in size and function. Atria Normal left and right atrial size and function. The interatrial septum is intact with no evidence for an atrial septal defect. Mitral Valve The mitral valve is normal in structure and function. There is no mitral valve stenosis. There is mil d mitral regurgitation. Tricuspid Valve The tricuspid valve is normal in structure and function. There is Trace to mild tricuspid regurgitati on. Aortic Valve The aortic valve opens well. No hemodynamically significant valvular aortic stenosis. Trace to mild a ortic regurgitation. Pulmonic Valve The pulmonic valve is not well seen, but is grossly normal. There is no pulmonic valvular stenosis. Great Vessels The aortic root is normal size. Pericardium/Pleura There is no pericardial effusion. Interpretation Summary Ejection Fraction = 60-65%. Left ventricular systolic function is normal. The transmitral spectral Doppler flow pattern is suggestive of impaired LV relaxation. The right ventricle is normal in size and function. There is mild mitral regurgitation. There is Trace to mild tricuspid regurgitation. Trace to mild aortic regurgitation. There is no pericardial effusion. MD Buchanan *Le 09/10/2018 03:19 PM
[2018-09-10] MEDS: CLOPIDOGREL BISULFATE 75 MG TABLET (FP) PO SCH (15:53)
[2018-09-10] MEDS: ASPIRIN COATED 81 MG TABLET.EC PO SCH (15:53)
[2018-09-10 16:58] LABS: BLOOD UREA NITROGEN 14.6 mg/dL (7-18); CALCIUM 9.5 mg/dL (8.5-10.1); POTASSIUM 4.7 mmol/L (3.5-5.1)
--- NOTE | 2018-09-10 17:00 | CONSULT ---
Consult - text type - Consultation Consultation Note: NEUROLOGYCONSULTATION is greatly appreciated: This 73 yo RH woman with h/o HTN, DM, Chol, ASHD, is s/p PPM. Episodic headaches x many years. Maintained on: Aspirin 81 mg PO; Clopidogrel; Levothyroxine; Bystolic 10 mg; Ranolazine; metFORMIN; and levoFLOXacin (?). Now admitted after 3 days of progressive dizziness, unsteadiness and decreased appetite (only drinking water) with dull holocranial headache. Found to have hyponatremia. Fell this AM without sequellae. CT scans x 2 (reviewed): Moderate diffuse atrophy and severe, diffuse, chronic Microvascular disease. Carotid duplex doppler: extensive atheromatous disease with plaque at the Left ICA origin with up to 80% stenosis. LAWSON: No head injury. Left carotid bruit. Cor reg. S/P PPM NEURO: [facility] August,. Trump. Recalls 1 of 3 at 3 mins. Speech fluent in Ukrainian. +Glabella, snout. CN II-XII: Normal without Nystagmus. Reduced tongue HOLLEY's. Gag OK Motor: No drift or tremor. Normal strength. Sl reduced HOLLEY's. Absent AJ's. Toes downgoing. Coord: No FTN dystaxia Sensory: Reduced vibration feet. Romberg +/- Gait: Sl shortened strides. Unsteady with turns. IMP: Non-focal exam. Mild-Mod OMS probably on a microvascular basis Diabetic peripheral neuropathy Both will contribute to gait dysfunction now worsened by Toxic-metabolic encephalopathy. Left carotid stenosis migraine headaches SUGGEST: Continue current Rx. Check B12, TSH RPR, ESR, CRP Vascular surgery opinion Re: carotid stenosis PT for gait with walker rehabilitation services counselor. Continue plavix, ASA unless a source of cardioembolism is found. Thank you very much, Cecilio Wilson MD
[2018-09-10] MEDS ORDERED: ACETAMINOPHEN 325 MG TABLET (FP) PO PRN (17:49)
[2018-09-10] MEDS ORDERED: SODIUM CHLORIDE 1,000 ML IV SCH (18:00)
--- NOTE | 2018-09-10 21:17 | PN ---
Progress Note, Physician History of Present Illness: Pt w/ ?fall CT scan head done - Current Medication List Current Medications: Active Medications Acetaminophen (Tylenol -) 650 mg PO Q6H PRN PRN Reason: PAIN LEVEL 1-8 Aspirin (Ecotrin -) 81 mg PO DAILY [facility] Last Admin: 09/10/18 15:53 Dose: 81 mg Atorvastatin Calcium (Lipitor -) 40 mg PO HS JEREMY Clopidogrel Bisulfate (Plavix -) 75 mg PO DAILY [facility] Last Admin: 09/10/18 15:53 Dose: 75 mg Diphenhydramine HCl (Benadryl -) 25 mg PO HS PRN PRN Reason: INSOMNIA Last Admin: 09/10/18 01:49 Dose: 25 mg Ceftriaxone Sodium 1 gm/ (Dextrose) 50 mls @ 200 mls/hr IVPB DAILY [facility]; Protocol Last Admin: 09/10/18 09:06 Dose: 200 mls/hr Sodium Chloride (Normal Saline -) 1,000 mls @ 50 mls/hr IV ASDIR [facility] Stop: 09/11/18 02:00 Last Admin: 09/10/18 17:59 Dose: 50 mls/hr Insulin Aspart (Novolog Vial Sliding Scale -) 1 vial SQ ACHS [facility]; Protocol Last Admin: 09/10/18 15:59 Dose: Not Given Levothyroxine Sodium (Synthroid -) 75 mcg PO DAILY@0700 [facility] Last Admin: 09/10/18 06:48 Dose: 75 mcg Metformin HCl (Glucophage -) 500 mg PO BID@0700,1630 [facility] Last Admin: 09/10/18 15:58 Dose: 500 mg Nebivolol (Bystolic -) 10 mg PO DAILY [facility] Last Admin: 09/10/18 09:05 Dose: 10 mg Ranolazine (Ranexa -) 1,000 mg PO BID [facility] Last Admin: 09/10/18 09:05 Dose: 1,000 mg - Objective Vital Signs: Vital Signs Temperature 98 F 09/10/18 19:14 Pulse Rate 56 L 09/10/18 19:14 Respiratory Rate 18 09/10/18 19:14 Blood Pressure 133/67 09/10/18 19:14 O2 Sat by Pulse Oximetry (%) 96 09/10/18 09:00 HENT: Yes: WNL Neck: Yes: WNL, Supple Cardiovascular: Yes: WNL, Regular Rate and Rhythm Respiratory: Yes: WNL, Regular, CTA Bilaterally Gastrointestinal: Yes: WNL, Normal Bowel Sounds, Soft Extremities: Yes: WNL Edema: No Labs: CBC, BMP 09/09/18 11:06 09/10/18 15:30 Problem List - Problems (1) Altered mental status Assessment/Plan: Metabolic encephalopathy Correct NA+ Cont PT Code(s): R41.82 - ALTERED MENTAL STATUS, UNSPECIFIED (2) UTI (urinary tract infection) Assessment/Plan: IV ceftriaxone Monitor for Urine culture Code(s): N39.0 - URINARY TRACT INFECTION, SITE NOT SPECIFIED Qualifiers: Urinary tract infection type: acute pyelonephritis Qualified Code(s): N10 - Acute pyelonephritis (3) Hyponatremia Assessment/Plan: Na+ improved Code(s): E87.1 - HYPO-OSMOLALITY AND HYPONATREMIA (4) Coronary artery disease Assessment/Plan: Cont plavix/asa/lipitor Code(s): I25.10 - ATHSCL HEART DISEASE OF [place] CORONARY ARTERY W/O ANG PCTRS Qualifiers: Coronary Disease-Associated Artery/Lesion type: [place] artery [place] vs. transplanted heart: [place] heart Associated angina: with stable angina Qualified Code(s): I25.118 - Atherosclerotic heart disease of [place] coronary artery with other forms of angina pectoris (5) Diabetes mellitus Assessment/Plan: Cont sliding scale w/ coverage Cont metformin Code(s): E11.9 - TYPE 2 DIABETES MELLITUS WITHOUT COMPLICATIONS Qualifiers: Diabetes mellitus type: type 2 Chronic kidney disease stage: stage 2 (mild ) (6) GERD (gastroesophageal reflux disease) Code(s): K21.9 - GASTRO-ESOPHAGEAL REFLUX DISEASE WITHOUT ESOPHAGITIS (7) Hypothyroidism Assessment/Plan: Cont levothyroxine Code(s): E03.9 - HYPOTHYROIDISM, UNSPECIFIED Qualifiers: Hypothyroidism type: unspecified Qualified Code(s): E03.9 - Hypothyroidism , unspecified
[2018-09-10] MEDS ORDERED: ZOLPIDEM TARTRATE 5 MG TABLET PO ONE (21:45)
[2018-09-10] MEDS ORDERED: INSULIN (NOVOLOG) ASPART 100 UNITS/ML 10ML VIAL ONE (21:58)
[2018-09-10] MEDS: ATORVASTATIN CA 40 MG TABLET (FP) PO SCH (22:01)
[2018-09-11] MEDS: INSULIN SLIDING SCALE (NOVOLOG) 1 VIAL SQ SCH ×4 (06:12→21:41)
[2018-09-11] MEDS: LEVOTHYROXINE NA 75 MCG TABLET (FP) PO SCH (06:12)
[2018-09-11] MEDS: metFORMIN HCL 500 MG TABLET (FP) PO SCH ×2 (06:12→18:25)
[2018-09-11 07:30] LABS: BASO % 0.6 % (0-2.0); HEMATOCRIT 32.5 % (32.4-45.2); LYMPH % 19.1 % (8-40); MCH 30.6 pg (25.7-33.7); MEAN CELL VOLUME 90.2 fl (80-96); MEAN PLT VOLUME 7.6 fl (7.5-11.1); MONO % 8.5 % (3.8-10.2); NEUT % 61.8 % (42.8-82.8); PLATELET COUNT 379 K/MM3 (134-434); RBC 3.61 M/mm3 (3.60-5.2); RDW 13.3 % (11.6-15.6); WHITE BLOOD COUNT 8.7 K/mm3 (4.0-10.0)
[2018-09-11 07:45] LABS: ALBUMIN 3.4 g/dl (3.4-5.0); BILIRUBIN,TOTAL 0.6 mg/dL (0.2-1); BLOOD UREA NITROGEN 16.2 mg/dL (7-18); CALCIUM 8.8 mg/dL (8.5-10.1); CREATININE 1.1 mg/dL (0.55-1.3); POTASSIUM 5.1 mmol/L (3.5-5.1); TOT PROT 6.2 g/dl (6.4-8.2)
[2018-09-11] MEDS ORDERED: SODIUM CHLORIDE 1,000 ML IV SCH (11:15)
[2018-09-11] MEDS ORDERED: RANOLAZINE E.R. 500 MG TABLET (FP) ONE ×2 (11:38→21:27)
[2018-09-11] MEDS ORDERED: cefTRIAXone SODIUM 1 GM VIAL ONE ×2 (11:38→11:40)
[2018-09-11] MEDS ORDERED: DEXTROSE 5%-WATER - 50 ML IVPB ONE ×2 (11:39→11:40)
[2018-09-11] MEDS: CLOPIDOGREL BISULFATE 75 MG TABLET (FP) PO SCH (11:49)
[2018-09-11] MEDS: RANOLAZINE E.R. 1,000 MG TABLET (FP) PO SCH ×2 (11:49→21:39)
[2018-09-11] MEDS: ASPIRIN COATED 81 MG TABLET.EC PO SCH (11:49)
[2018-09-11] MEDS: NEBIVOLOL 10 MG TABLET (FP) PO SCH (11:51)
[2018-09-11] MEDS: CEFTRIAXONE 1 GM in DEXTROSE 5%-WATER - 50 ML IVPB SCH (11:51)
--- NOTE | 2018-09-11 14:42 | PN ---
Progress Note, Physician History of Present Illness: Pt seen and examined at bedside. She is awake and alert. She denies dizziness. - Current Medication List Current Medications: Active Medications Acetaminophen (Tylenol -) 650 mg PO Q6H PRN PRN Reason: PAIN LEVEL 1-8 Aspirin (Ecotrin -) 81 mg PO DAILY [facility] Last Admin: 09/11/18 11:49 Dose: 81 mg Atorvastatin Calcium (Lipitor -) 40 mg PO HS [facility] Last Admin: 09/10/18 22:01 Dose: 40 mg Clopidogrel Bisulfate (Plavix -) 75 mg PO DAILY [facility] Last Admin: 09/11/18 11:49 Dose: 75 mg Diphenhydramine HCl (Benadryl -) 25 mg PO HS PRN PRN Reason: INSOMNIA Last Admin: 09/10/18 01:49 Dose: 25 mg Ceftriaxone Sodium 1 gm/ (Dextrose) 50 mls @ 200 mls/hr IVPB DAILY [facility]; Protocol Last Admin: 09/11/18 11:51 Dose: 200 mls/hr Sodium Chloride (Normal Saline -) 1,000 mls @ 50 mls/hr IV ASDIR [facility] Stop: 09/12/18 11:12 Last Admin: 09/11/18 11:51 Dose: 50 mls/hr Insulin Aspart (Novolog Vial Sliding Scale -) 1 vial SQ ACHS [facility]; Protocol Last Admin: 09/11/18 06:12 Dose: Not Given Levothyroxine Sodium (Synthroid -) 75 mcg PO DAILY@0700 [facility] Last Admin: 09/11/18 06:12 Dose: 75 mcg Metformin HCl (Glucophage -) 500 mg PO BID@0700,1630 [facility] Last Admin: 09/11/18 06:12 Dose: 500 mg Nebivolol (Bystolic -) 10 mg PO DAILY [facility] Last Admin: 09/11/18 11:51 Dose: 10 mg Ranolazine (Ranexa -) 1,000 mg PO BID [facility] Last Admin: 09/11/18 11:49 Dose: 1,000 mg - Objective Vital Signs: Vital Signs Temperature 97.9 F 09/11/18 06:00 Pulse Rate 67 09/11/18 05:14 Respiratory Rate 18 09/11/18 05:14 Blood Pressure 103/45 L 09/11/18 05:14 O2 Sat by Pulse Oximetry (%) 97 09/10/18 21:00 Constitutional: Yes: Calm Eyes: Yes: Conjunctiva Clear HENT: Yes: Atraumatic Neck: Yes: Supple Cardiovascular: Yes: S1, S2 Respiratory: Yes: CTA Bilaterally Gastrointestinal: Yes: Soft Genitourinary: Yes: WNL Musculoskeletal: Yes: WNL Edema: No Integumentary: Yes: WNL Neurological: Yes: Oriented Psychiatric: Yes: Oriented Labs: CBC, BMP 09/11/18 05:28 09/11/18 05:28 Problem List - Problems (1) Hyponatremia Code(s): E87.1 - HYPO-OSMOLALITY AND HYPONATREMIA Assessment/Plan Current Medications Generic Name Dose Route Start Last Admin Trade Name Freq PRN Reason Stop Dose Admin Acetaminophen 650 mg 09/10/18 17:49 Tylenol - PO Q6H PRN PAIN LEVEL 1-8 Aspirin 81 mg 09/09/18 15:15 09/11/18 11:49 Ecotrin - PO 81 mg DAILY JEREMY Administration Atorvastatin Calcium 40 mg 09/10/18 22:00 09/10/18 22:01 Lipitor - PO 40 mg HS JEREMY Administration Clopidogrel Bisulfate 75 mg 09/09/18 15:15 09/11/18 11:49 Plavix - PO 75 mg DAILY JEREMY Administration Diphenhydramine HCl 25 mg 09/10/18 01:22 09/10/18 01:49 Benadryl - PO 25 mg HS PRN Administration INSOMNIA Ceftriaxone Sodium 1 gm/ 50 mls @ 200 mls/hr 09/09/18 15:15 09/11/18 11:51 Dextrose IVPB 200 mls/hr DAILY JEREMY Administration Protocol Sodium Chloride 1,000 mls @ 50 mls/hr 09/11/18 11:15 09/11/18 11:51 Normal Saline - IV 09/12/18 11:12 50 mls/hr ASDIR JEREMY Administration Insulin Aspart 1 vial 09/09/18 16:30 09/11/18 06:12 Novolog Vial Sliding Scale - SQ Not Given ACHS JEREMY Protocol Levothyroxine Sodium 75 mcg 09/10/18 07:00 09/11/18 06:12 Synthroid - PO 75 mcg DAILY@0700 JEREMY Administration Metformin HCl 500 mg 09/09/18 16:30 09/11/18 06:12 Glucophage - PO 500 mg BID@0700,1630 JEREMY Administration Nebivolol 10 mg 09/09/18 15:15 09/11/18 11:51 Bystolic - PO 10 mg DAILY JEREMY Administration Ranolazine 1,000 mg 09/09/18 22:00 09/11/18 11:49 Ranexa - PO 1,000 mg BID JEREMY Administration Impression 1. hyponatremia - euvolemic 2. htn 3. dm 4. nausea 5. loss of balance 6. hypothyroidism 7. cad Plan - sodium slowly improving - cont saline - encourage PO intake - restrict free water
--- NOTE | 2018-09-11 15:20 | PN ---
Progress Note, Physician History of Present Illness: Dizziness improved, denies chest pain or dyspnea. - Current Medication List Current Medications: Active Medications Acetaminophen (Tylenol -) 650 mg PO Q6H PRN PRN Reason: PAIN LEVEL 1-8 Aspirin (Ecotrin -) 81 mg PO DAILY [facility] Last Admin: 09/11/18 11:49 Dose: 81 mg Atorvastatin Calcium (Lipitor -) 40 mg PO HS [facility] Last Admin: 09/10/18 22:01 Dose: 40 mg Clopidogrel Bisulfate (Plavix -) 75 mg PO DAILY [facility] Last Admin: 09/11/18 11:49 Dose: 75 mg Diphenhydramine HCl (Benadryl -) 25 mg PO HS PRN PRN Reason: INSOMNIA Last Admin: 09/10/18 01:49 Dose: 25 mg Ceftriaxone Sodium 1 gm/ (Dextrose) 50 mls @ 200 mls/hr IVPB DAILY [facility]; Protocol Last Admin: 09/11/18 11:51 Dose: 200 mls/hr Sodium Chloride (Normal Saline -) 1,000 mls @ 50 mls/hr IV ASDIR [facility] Stop: 09/12/18 11:12 Last Admin: 09/11/18 11:51 Dose: 50 mls/hr Insulin Aspart (Novolog Vial Sliding Scale -) 1 vial SQ ACHS [facility]; Protocol Last Admin: 09/11/18 06:12 Dose: Not Given Levothyroxine Sodium (Synthroid -) 75 mcg PO DAILY@0700 [facility] Last Admin: 09/11/18 06:12 Dose: 75 mcg Metformin HCl (Glucophage -) 500 mg PO BID@0700,1630 [facility] Last Admin: 09/11/18 06:12 Dose: 500 mg Nebivolol (Bystolic -) 10 mg PO DAILY [facility] Last Admin: 09/11/18 11:51 Dose: 10 mg Ranolazine (Ranexa -) 1,000 mg PO BID [facility] Last Admin: 09/11/18 11:49 Dose: 1,000 mg - Objective Vital Signs: Vital Signs Temperature 97.9 F 09/11/18 06:00 Pulse Rate 67 09/11/18 05:14 Respiratory Rate 18 09/11/18 05:14 Blood Pressure 103/45 L 09/11/18 05:14 O2 Sat by Pulse Oximetry (%) 97 09/10/18 21:00 Constitutional: Yes: No Distress, Calm Neck: Yes: Supple Cardiovascular: Yes: Regular Rate and Rhythm Respiratory: Yes: Regular, CTA Bilaterally Gastrointestinal: Yes: Normal Bowel Sounds, Soft Edema: No Labs: CBC, BMP 09/11/18 05:28 09/11/18 05:28 Problem List - Problems (1) Dizziness Code(s): R42 - DIZZINESS AND GIDDINESS (2) Gait disturbance Code(s): R26.9 - UNSPECIFIED ABNORMALITIES OF GAIT AND MOBILITY (3) Hyponatremia Code(s): E87.1 - HYPO-OSMOLALITY AND HYPONATREMIA (4) Coronary artery disease Code(s): I25.10 - ATHSCL HEART DISEASE OF [place] CORONARY ARTERY W/O ANG PCTRS Qualifiers: Coronary Disease-Associated Artery/Lesion type: [place] artery [place] vs. transplanted heart: [place] heart Associated angina: with stable angina Qualified Code(s): I25.118 - Atherosclerotic heart disease of [place] coronary artery with other forms of angina pectoris (5) Diabetes mellitus Code(s): E11.9 - TYPE 2 DIABETES MELLITUS WITHOUT COMPLICATIONS Qualifiers: Diabetes mellitus type: type 2 Chronic kidney disease stage: stage 2 (mild ) (6) Hyperlipidemia associated with type 2 diabetes mellitus Code(s): E11.69 - TYPE 2 DIABETES MELLITUS WITH OTHER SPECIFIED COMPLICATION; E78.5 - HYPERLIPIDEMIA, UNSPECIFIED (7) Hypothyroidism Code(s): E03.9 - HYPOTHYROIDISM, UNSPECIFIED Qualifiers: Hypothyroidism type: unspecified Qualified Code(s): E03.9 - Hypothyroidism , unspecified (8) Stented coronary artery Code(s): Z95.5 - PRESENCE OF CORONARY ANGIOPLASTY IMPLANT AND GRAFT Assessment/Plan June 08, 2013: Nuclear stress: Normal MPI, LVEF 74% September 10, 2018 Normal LV and RV size and fxn, abnl LV compliance, mild MR, AR, tr -mild TR 2015 Normal LV and RV size and fxn, mild MR, mild-mod TR, tr AL June 02, 2013: Echocardiogram: Normal LV size and fxn, mild AR, tr MR and TR CT scans x 2 (reviewed): Moderate diffuse atrophy and severe, diffuse, chronic Microvascular disease. Carotid duplex doppler: extensive atheromatous disease with plaque at the Left ICA origin 60-79% stenosis. 1. Dizziness 2. LICA stenosis 3. CAD s/p PCI (EMELI), demand ischemia 4. Diastolic dysfunction 5. HTN/HCVD 6. Type 2 DM with peripheral neuropathy 7. Hyperlipidemia 8. Hypothyroidism 9. Hyponatremia-euvolemic P:1. Free water restriction, NSS with monitor NA improvement 2. Continue ASA 81 qd, Plavix 75 qd, Zocor 20 qhs, Bystolic 10 qd, Ranexa 1000 bid, resume Diovan once renal fxn stable 3. Vascular input regarding LICA stenosis, PT for gait training, DVT prophylaxis
[2018-09-11] MEDS ORDERED: INSULIN (NOVOLOG) ASPART 100 UNITS/ML 10ML VIAL ONE (21:27)
[2018-09-11] MEDS: ATORVASTATIN CA 40 MG TABLET (FP) PO SCH (21:38)
[2018-09-11] MEDS: ZOLPIDEM TARTRATE 5 MG TABLET PO PRN (21:39)
--- NOTE | 2018-09-11 23:38 | PN ---
Progress Note, Physician History of Present Illness: No new complaints - Current Medication List Current Medications: Active Medications Acetaminophen (Tylenol -) 650 mg PO Q6H PRN PRN Reason: PAIN LEVEL 1-8 Aspirin (Ecotrin -) 81 mg PO DAILY [facility] Last Admin: 09/11/18 11:49 Dose: 81 mg Atorvastatin Calcium (Lipitor -) 40 mg PO HS [facility] Last Admin: 09/11/18 21:38 Dose: 40 mg Clopidogrel Bisulfate (Plavix -) 75 mg PO DAILY [facility] Last Admin: 09/11/18 11:49 Dose: 75 mg Diphenhydramine HCl (Benadryl -) 25 mg PO HS PRN PRN Reason: INSOMNIA Last Admin: 09/10/18 01:49 Dose: 25 mg Ceftriaxone Sodium 1 gm/ (Dextrose) 50 mls @ 200 mls/hr IVPB DAILY [facility]; Protocol Last Admin: 09/11/18 11:51 Dose: 200 mls/hr Sodium Chloride (Normal Saline -) 1,000 mls @ 50 mls/hr IV ASDIR [facility] Stop: 09/12/18 11:12 Last Admin: 09/11/18 11:51 Dose: 50 mls/hr Insulin Aspart (Novolog Vial Sliding Scale -) 1 vial SQ ACHS [facility]; Protocol Last Admin: 09/11/18 21:41 Dose: Not Given Levothyroxine Sodium (Synthroid -) 75 mcg PO DAILY@0700 [facility] Last Admin: 09/11/18 06:12 Dose: 75 mcg Metformin HCl (Glucophage -) 500 mg PO BID@0700,1630 [facility] Last Admin: 09/11/18 18:25 Dose: 500 mg Nebivolol (Bystolic -) 10 mg PO DAILY [facility] Last Admin: 09/11/18 11:51 Dose: 10 mg Ranolazine (Ranexa -) 1,000 mg PO BID [facility] Last Admin: 09/11/18 21:39 Dose: 1,000 mg Zolpidem Tartrate (Ambien -) 5 mg PO HS PRN PRN Reason: INSOMNIA Last Admin: 09/11/18 21:39 Dose: 5 mg - Objective Vital Signs: Vital Signs Temperature 98 F 09/11/18 21:43 Pulse Rate 64 09/11/18 21:43 Respiratory Rate 18 09/11/18 21:43 Blood Pressure 155/70 09/11/18 21:43 O2 Sat by Pulse Oximetry (%) 97 09/10/18 21:00 HENT: Yes: WNL Neck: Yes: WNL, Supple Cardiovascular: Yes: WNL, Regular Rate and Rhythm Respiratory: Yes: WNL, Regular, CTA Bilaterally Gastrointestinal: Yes: WNL, Normal Bowel Sounds, Soft Extremities: Yes: WNL Edema: No Labs: CBC, BMP 09/11/18 05:28 09/11/18 05:28 Problem List - Problems (1) CVA (cerebral vascular accident) Assessment/Plan: Repeat CT scan head showed lacunar infarct Cont asa/lipitor Monitor BP Pt unable to have MRI due to pacemaker Carotid stenosis Vasculat consult noted Code(s): I63.9 - CEREBRAL INFARCTION, UNSPECIFIED (2) Altered mental status Assessment/Plan: Metabolic encephalopathy Correct NA+ Cont PT Code(s): R41.82 - ALTERED MENTAL STATUS, UNSPECIFIED (3) UTI (urinary tract infection) Assessment/Plan: IV ceftriaxone Urine culture (+) for klebsiella Code(s): N39.0 - URINARY TRACT INFECTION, SITE NOT SPECIFIED Qualifiers: Urinary tract infection type: acute pyelonephritis Qualified Code(s): N10 - Acute pyelonephritis (4) Hyponatremia Assessment/Plan: Na+ improved Code(s): E87.1 - HYPO-OSMOLALITY AND HYPONATREMIA (5) Coronary artery disease Assessment/Plan: Cont plavix/asa/lipitor Code(s): I25.10 - ATHSCL HEART DISEASE OF [place] CORONARY ARTERY W/O ANG PCTRS Qualifiers: Coronary Disease-Associated Artery/Lesion type: [place] artery [place] vs. transplanted heart: [place] heart Associated angina: with stable angina Qualified Code(s): I25.118 - Atherosclerotic heart disease of [place] coronary artery with other forms of angina pectoris (6) Diabetes mellitus Assessment/Plan: Cont sliding scale w/ coverage Cont metformin Code(s): E11.9 - TYPE 2 DIABETES MELLITUS WITHOUT COMPLICATIONS Qualifiers: Diabetes mellitus type: type 2 Chronic kidney disease stage: stage 2 (mild ) (7) GERD (gastroesophageal reflux disease) Code(s): K21.9 - GASTRO-ESOPHAGEAL REFLUX DISEASE WITHOUT ESOPHAGITIS (8) Hypothyroidism Assessment/Plan: Cont levothyroxine Code(s): E03.9 - HYPOTHYROIDISM, UNSPECIFIED Qualifiers: Hypothyroidism type: unspecified Qualified Code(s): E03.9 - Hypothyroidism , unspecified (9) HLD (hyperlipidemia) Assessment/Plan: Cont lipitor Code(s): E78.5 - HYPERLIPIDEMIA, UNSPECIFIED (10) HTN (hypertension) Assessment/Plan: BP stable Cont metoprolol Code(s): I10 - ESSENTIAL (PRIMARY) HYPERTENSION
[2018-09-12] MEDS: metFORMIN HCL 500 MG TABLET (FP) PO SCH ×2 (07:02→18:16)
[2018-09-12] MEDS: LEVOTHYROXINE NA 75 MCG TABLET (FP) PO SCH (07:02)
[2018-09-12] MEDS: INSULIN SLIDING SCALE (NOVOLOG) 1 VIAL SQ SCH ×4 (07:02→21:01)
[2018-09-12 09:16] LABS: EOS % 11.5 % (0-4.5); HEMOGLOBIN 11.6 GM/dL (10.7-15.3); MCH 30.9 pg (25.7-33.7); MCHC 34.1 g/dl (32.0-36.0); MEAN CELL VOLUME 90.5 fl (80-96); MEAN PLT VOLUME 7.1 fl (7.5-11.1); MONO % 8.7 % (3.8-10.2); NEUT % 50.8 % (42.8-82.8); RBC 3.76 M/mm3 (3.60-5.2); RDW 13.3 % (11.6-15.6); WHITE BLOOD COUNT 6.9 K/mm3 (4.0-10.0)
[2018-09-12] MEDS ORDERED: cefTRIAXone SODIUM 1 GM VIAL ONE (09:18)
[2018-09-12] MEDS ORDERED: RANOLAZINE E.R. 500 MG TABLET (FP) ONE ×2 (09:18→20:25)
[2018-09-12] MEDS ORDERED: DEXTROSE 5%-WATER - 50 ML IVPB ONE (09:19)
[2018-09-12] MEDS: CLOPIDOGREL BISULFATE 75 MG TABLET (FP) PO SCH (09:20)
[2018-09-12] MEDS: ASPIRIN COATED 81 MG TABLET.EC PO SCH (09:20)
[2018-09-12] MEDS: RANOLAZINE E.R. 1,000 MG TABLET (FP) PO SCH ×2 (09:21→21:00)
[2018-09-12] MEDS: CEFTRIAXONE 1 GM in DEXTROSE 5%-WATER - 50 ML IVPB SCH (09:21)
[2018-09-12 09:40] LABS: PLATELET COUNT 391 K/MM3 (134-434)
[2018-09-12 09:47] LABS: ALBUMIN 3.8 g/dl (3.4-5.0); BILIRUBIN,TOTAL 0.4 mg/dL (0.2-1); BLOOD UREA NITROGEN 11.8 mg/dL (7-18); CALCIUM 9.3 mg/dL (8.5-10.1); POTASSIUM 4.5 mmol/L (3.5-5.1); TOT PROT 6.7 g/dl (6.4-8.2)
[2018-09-12] MEDS: NEBIVOLOL 10 MG TABLET (FP) PO SCH (10:15)
--- NOTE | 2018-09-12 12:13 | PN ---
Progress Note (short form) - Note Progress Note: Vascular Surgery Carotid US reviewed. right ICA is normal. Left ICA with focal loss of signal Stenosis of 60-79 percent. Recc CTA of neck to check carotids prior to DC . Will follow Gentry Trevino DO
--- NOTE | 2018-09-12 16:51 | PN ---
Progress Note, Physician History of Present Illness: Pt seen and examined at bedside. She is awake and alert. SHe denies shortness of breath. - Current Medication List Current Medications: Active Medications Acetaminophen (Tylenol -) 650 mg PO Q6H PRN PRN Reason: PAIN LEVEL 1-8 Last Admin: 09/12/18 09:23 Dose: 650 mg Aspirin (Ecotrin -) 81 mg PO DAILY [facility] Last Admin: 09/12/18 09:20 Dose: 81 mg Atorvastatin Calcium (Lipitor -) 40 mg PO HS [facility] Last Admin: 09/11/18 21:38 Dose: 40 mg Clopidogrel Bisulfate (Plavix -) 75 mg PO DAILY [facility] Last Admin: 09/12/18 09:20 Dose: 75 mg Diphenhydramine HCl (Benadryl -) 25 mg PO HS PRN PRN Reason: INSOMNIA Last Admin: 09/10/18 01:49 Dose: 25 mg Ceftriaxone Sodium 1 gm/ (Dextrose) 50 mls @ 200 mls/hr IVPB DAILY [facility]; Protocol Last Admin: 09/12/18 09:21 Dose: 200 mls/hr Sodium Chloride (Normal Saline -) 1,000 mls @ 83 mls/hr IV ASDIR [facility] Insulin Aspart (Novolog Vial Sliding Scale -) 1 vial SQ ACHS [facility]; Protocol Last Admin: 09/12/18 15:36 Dose: Not Given Levothyroxine Sodium (Synthroid -) 75 mcg PO DAILY@0700 [facility] Last Admin: 09/12/18 07:02 Dose: 75 mcg Metformin HCl (Glucophage -) 500 mg PO BID@0700,1630 [facility] Last Admin: 09/12/18 07:02 Dose: 500 mg Nebivolol (Bystolic -) 10 mg PO DAILY [facility] Last Admin: 09/12/18 10:15 Dose: 10 mg Ranolazine (Ranexa -) 1,000 mg PO BID [facility] Last Admin: 09/12/18 09:21 Dose: 1,000 mg Zolpidem Tartrate (Ambien -) 5 mg PO HS PRN PRN Reason: INSOMNIA Last Admin: 09/11/18 21:39 Dose: 5 mg - Objective Vital Signs: Vital Signs Temperature 97.8 F 09/12/18 15:19 Pulse Rate 63 09/12/18 15:19 Respiratory Rate 20 09/12/18 15:19 Blood Pressure 127/58 L 09/12/18 15:19 O2 Sat by Pulse Oximetry (%) 96 09/11/18 21:00 Constitutional: Yes: Calm Eyes: Yes: Conjunctiva Clear HENT: Yes: Atraumatic Neck: Yes: Supple Cardiovascular: Yes: S1, S2 Respiratory: Yes: CTA Bilaterally Gastrointestinal: Yes: Soft Genitourinary: Yes: WNL Musculoskeletal: Yes: WNL Edema: No Neurological: Yes: Oriented Psychiatric: Yes: Oriented Labs: CBC, BMP 09/12/18 09:01 09/12/18 09:01 Problem List - Problems (1) Hyponatremia Code(s): E87.1 - HYPO-OSMOLALITY AND HYPONATREMIA Assessment/Plan Current Medications Generic Name Dose Route Start Last Admin Trade Name Freq PRN Reason Stop Dose Admin Acetaminophen 650 mg 09/10/18 17:49 09/12/18 09:23 Tylenol - PO 650 mg Q6H PRN Administration PAIN LEVEL 1-8 Aspirin 81 mg 09/09/18 15:15 09/12/18 09:20 Ecotrin - PO 81 mg DAILY [facility] Administration Atorvastatin Calcium 40 mg 09/10/18 22:00 09/11/18 21:38 Lipitor - PO 40 mg HS [facility] Administration Clopidogrel Bisulfate 75 mg 09/09/18 15:15 09/12/18 09:20 Plavix - PO 75 mg DAILY [facility] Administration Diphenhydramine HCl 25 mg 09/10/18 01:22 09/10/18 01:49 Benadryl - PO 25 mg HS PRN Administration INSOMNIA Ceftriaxone Sodium 1 gm/ 50 mls @ 200 mls/hr 09/09/18 15:15 09/12/18 09:21 Dextrose IVPB 200 mls/hr DAILY [facility] Administration Protocol Sodium Chloride 1,000 mls @ 83 mls/hr 09/12/18 17:00 Normal Saline - IV ASDIR [facility] Insulin Aspart 1 vial 09/09/18 16:30 09/12/18 15:36 Novolog Vial Sliding Scale - SQ Not Given ACHS [facility] Protocol Levothyroxine Sodium 75 mcg 09/10/18 07:00 09/12/18 07:02 Synthroid - PO 75 mcg DAILY@0700 [facility] Administration Metformin HCl 500 mg 09/09/18 16:30 09/12/18 07:02 Glucophage - PO 500 mg BID@0700,1630 [facility] Administration Nebivolol 10 mg 09/09/18 15:15 09/12/18 10:15 Bystolic - PO 10 mg DAILY [facility] Administration Ranolazine 1,000 mg 09/09/18 22:00 09/12/18 09:21 Ranexa - PO 1,000 mg BID [facility] Administration Zolpidem Tartrate 5 mg 09/11/18 21:29 09/11/18 21:39 Ambien - PO 5 mg HS PRN Administration INSOMNIA Impression 1. hyponatremia - euvolemic 2. htn 3. dm 4. nausea 5. loss of balance 6. hypothyroidism 7. cad Plan - cont saline - monitor sodium - restrict free water - encourage PO intake - vascular input appreciated
[2018-09-12] MEDS ORDERED: SODIUM CHLORIDE 1,000 ML IV SCH (17:00)
[2018-09-12] MEDS: ATORVASTATIN CA 40 MG TABLET (FP) PO SCH (21:01)
[2018-09-12] MEDS: diphenhydrAMINE HCL 25 MG CAPSULE (FP) PO PRN (21:32)
--- NOTE | 2018-09-12 22:27 | PN ---
Progress Note, Physician History of Present Illness: No new complaints - Current Medication List Current Medications: Active Medications Acetaminophen (Tylenol -) 650 mg PO Q6H PRN PRN Reason: PAIN LEVEL 1-8 Last Admin: 09/12/18 09:23 Dose: 650 mg Aspirin (Ecotrin -) 81 mg PO DAILY [facility] Last Admin: 09/12/18 09:20 Dose: 81 mg Atorvastatin Calcium (Lipitor -) 40 mg PO HS [facility] Last Admin: 09/12/18 21:01 Dose: 40 mg Clopidogrel Bisulfate (Plavix -) 75 mg PO DAILY [facility] Last Admin: 09/12/18 09:20 Dose: 75 mg Diphenhydramine HCl (Benadryl -) 25 mg PO HS PRN PRN Reason: INSOMNIA Last Admin: 09/12/18 21:32 Dose: 25 mg Ceftriaxone Sodium 1 gm/ (Dextrose) 50 mls @ 200 mls/hr IVPB DAILY [facility]; Protocol Last Admin: 09/12/18 09:21 Dose: 200 mls/hr Sodium Chloride (Normal Saline -) 1,000 mls @ 83 mls/hr IV ASDIR [facility] Last Admin: 09/12/18 18:19 Dose: 83 mls/hr Insulin Aspart (Novolog Vial Sliding Scale -) 1 vial SQ ACHS [facility]; Protocol Last Admin: 09/12/18 21:01 Dose: Not Given Levothyroxine Sodium (Synthroid -) 75 mcg PO DAILY@0700 [facility] Last Admin: 09/12/18 07:02 Dose: 75 mcg Metformin HCl (Glucophage -) 500 mg PO BID@0700,1630 [facility] Last Admin: 09/12/18 18:16 Dose: 500 mg Nebivolol (Bystolic -) 10 mg PO DAILY [facility] Last Admin: 09/12/18 10:15 Dose: 10 mg Ranolazine (Ranexa -) 1,000 mg PO BID [facility] Last Admin: 09/12/18 21:00 Dose: 1,000 mg Zolpidem Tartrate (Ambien -) 5 mg PO HS PRN PRN Reason: INSOMNIA Last Admin: 09/11/18 21:39 Dose: 5 mg - Objective Vital Signs: Vital Signs Temperature 98.4 F 09/12/18 20:53 Pulse Rate 61 09/12/18 20:53 Respiratory Rate 18 09/12/18 20:53 Blood Pressure 154/62 09/12/18 20:53 O2 Sat by Pulse Oximetry (%) 96 09/11/18 21:00 HENT: Yes: WNL Neck: Yes: WNL, Supple Cardiovascular: Yes: WNL, Regular Rate and Rhythm Respiratory: Yes: WNL, Regular, CTA Bilaterally Gastrointestinal: Yes: WNL, Normal Bowel Sounds, Soft Extremities: Yes: WNL Edema: No Labs: CBC, BMP 09/12/18 09:01 09/12/18 09:01 Problem List - Problems (1) CVA (cerebral vascular accident) Assessment/Plan: Repeat CT scan head showed lacunar infarct Cont asa/lipitor Monitor BP Pt unable to have MRI due to pacemaker Carotid stenosis Vasculat consult noted Check CTA neck Code(s): I63.9 - CEREBRAL INFARCTION, UNSPECIFIED (2) Altered mental status Assessment/Plan: Metabolic encephalopathy Correct NA+ Cont PT Code(s): R41.82 - ALTERED MENTAL STATUS, UNSPECIFIED (3) UTI (urinary tract infection) Assessment/Plan: IV ceftriaxone Urine culture (+) for klebsiella Code(s): N39.0 - URINARY TRACT INFECTION, SITE NOT SPECIFIED Qualifiers: Urinary tract infection type: acute pyelonephritis Qualified Code(s): N10 - Acute pyelonephritis (4) Hyponatremia Assessment/Plan: Na+ improved Code(s): E87.1 - HYPO-OSMOLALITY AND HYPONATREMIA (5) Coronary artery disease Code(s): I25.10 - ATHSCL HEART DISEASE OF [place] CORONARY ARTERY W/O ANG PCTRS Qualifiers: Coronary Disease-Associated Artery/Lesion type: [place] artery [place] vs. transplanted heart: [place] heart Associated angina: with stable angina Qualified Code(s): I25.118 - Atherosclerotic heart disease of [place] coronary artery with other forms of angina pectoris (6) Diabetes mellitus Assessment/Plan: Cont sliding scale w/ coverage Code(s): E11.9 - TYPE 2 DIABETES MELLITUS WITHOUT COMPLICATIONS Qualifiers: Diabetes mellitus type: type 2 Chronic kidney disease stage: stage 2 (mild ) (7) GERD (gastroesophageal reflux disease) Code(s): K21.9 - GASTRO-ESOPHAGEAL REFLUX DISEASE WITHOUT ESOPHAGITIS (8) Hypothyroidism Assessment/Plan: Cont levothyroxine Code(s): E03.9 - HYPOTHYROIDISM, UNSPECIFIED Qualifiers: Hypothyroidism type: unspecified Qualified Code(s): E03.9 - Hypothyroidism , unspecified (9) HTN (hypertension) Assessment/Plan: BP stable Cont metoprolol Code(s): I10 - ESSENTIAL (PRIMARY) HYPERTENSION (10) HLD (hyperlipidemia) Code(s): E78.5 - HYPERLIPIDEMIA, UNSPECIFIED (11) CAD (coronary artery disease) Code(s): I25.10 - ATHSCL HEART DISEASE OF [place] CORONARY ARTERY W/O ANG PCTRS (12) CAD (coronary artery disease) Code(s): I25.10 - ATHSCL HEART DISEASE OF [place] CORONARY ARTERY W/O ANG PCTRS
[2018-09-12] MEDS: ZOLPIDEM TARTRATE 5 MG TABLET PO PRN (22:56)
[2018-09-13] MEDS: metFORMIN HCL 500 MG TABLET (FP) PO SCH ×2 (06:41→17:47)
[2018-09-13] MEDS: INSULIN SLIDING SCALE (NOVOLOG) 1 VIAL SQ SCH ×4 (06:41→21:43)
[2018-09-13] MEDS: LEVOTHYROXINE NA 75 MCG TABLET (FP) PO SCH (06:41)
[2018-09-13 08:19] LABS: ALBUMIN 3.6 g/dl (3.4-5.0); BILIRUBIN,TOTAL 0.5 mg/dL (0.2-1); BLOOD UREA NITROGEN 15.2 mg/dL (7-18); CALCIUM 9.1 mg/dL (8.5-10.1); POTASSIUM 4.9 mmol/L (3.5-5.1); TOT PROT 6.5 g/dl (6.4-8.2)
[2018-09-13] MEDS ORDERED: RANOLAZINE E.R. 500 MG TABLET (FP) ONE (11:11)
[2018-09-13] MEDS ORDERED: cefTRIAXone SODIUM 1 GM VIAL ONE (11:12)
[2018-09-13] MEDS ORDERED: PT OWN MED DRAWER 7, Y5N ONE (11:12)
[2018-09-13] MEDS ORDERED: DEXTROSE 5%-WATER - 50 ML IVPB ONE (11:12)
[2018-09-13] MEDS: RANOLAZINE E.R. 1,000 MG TABLET (FP) PO SCH (11:13)
[2018-09-13] MEDS: ASPIRIN COATED 81 MG TABLET.EC PO SCH (11:13)
[2018-09-13] MEDS: CEFTRIAXONE 1 GM in DEXTROSE 5%-WATER - 50 ML IVPB SCH (11:14)
[2018-09-13] MEDS: CLOPIDOGREL BISULFATE 75 MG TABLET (FP) PO SCH (11:14)
[2018-09-13] MEDS: NEBIVOLOL 10 MG TABLET (FP) PO SCH (11:14)
[2018-09-13] MEDS: SODIUM CHLORIDE 1 GM TABLET PO SCH (14:38)
--- NOTE | 2018-09-13 16:49 | PN ---
Progress Note, Physician History of Present Illness: Pt seen and examined at bedside. She is awake and alert. She denies shortness of breath. - Current Medication List Current Medications: Active Medications Acetaminophen (Tylenol -) 650 mg PO Q6H PRN PRN Reason: PAIN LEVEL 1-8 Last Admin: 09/12/18 09:23 Dose: 650 mg Aspirin (Ecotrin -) 81 mg PO DAILY [facility] Last Admin: 09/13/18 11:13 Dose: 81 mg Atorvastatin Calcium (Lipitor -) 40 mg PO HS [facility] Last Admin: 09/12/18 21:01 Dose: 40 mg Clopidogrel Bisulfate (Plavix -) 75 mg PO DAILY [facility] Last Admin: 09/13/18 11:14 Dose: 75 mg Diphenhydramine HCl (Benadryl -) 25 mg PO HS PRN PRN Reason: INSOMNIA Last Admin: 09/12/18 21:32 Dose: 25 mg Ceftriaxone Sodium 1 gm/ (Dextrose) 50 mls @ 200 mls/hr IVPB DAILY [facility]; Protocol Last Admin: 09/13/18 11:14 Dose: 200 mls/hr Sodium Chloride (Normal Saline -) 1,000 mls @ 83 mls/hr IV ASDIR [facility] Last Admin: 09/12/18 18:19 Dose: 83 mls/hr Insulin Aspart (Novolog Vial Sliding Scale -) 1 vial SQ ACHS [facility]; Protocol Last Admin: 09/13/18 12:31 Dose: Not Given Levothyroxine Sodium (Synthroid -) 75 mcg PO DAILY@0700 [facility] Last Admin: 09/13/18 06:41 Dose: 75 mcg Metformin HCl (Glucophage -) 500 mg PO BID@0700,1630 [facility] Last Admin: 09/13/18 06:41 Dose: 500 mg Nebivolol (Bystolic -) 10 mg PO DAILY [facility] Last Admin: 09/13/18 11:14 Dose: 10 mg Ranolazine (Ranexa -) 1,000 mg PO BID [facility] Sodium Chloride (Sodium Chloride Tablet -) 1 gm PO DAILY [facility] Last Admin: 09/13/18 14:38 Dose: 1 gm Zolpidem Tartrate (Ambien -) 5 mg PO HS PRN PRN Reason: INSOMNIA Last Admin: 09/12/18 22:56 Dose: 5 mg - Objective Vital Signs: Vital Signs Temperature 98.1 F 09/13/18 13:46 Pulse Rate 68 09/13/18 13:46 Respiratory Rate 18 09/13/18 13:46 Blood Pressure 144/52 L 09/13/18 13:46 O2 Sat by Pulse Oximetry (%) 98 09/12/18 21:00 Constitutional: Yes: Calm Eyes: Yes: Conjunctiva Clear HENT: Yes: Atraumatic Neck: Yes: Supple Cardiovascular: Yes: S1, S2 Respiratory: Yes: CTA Bilaterally Gastrointestinal: Yes: Normal Bowel Sounds, Soft Genitourinary: Yes: WNL Extremities: Yes: WNL Edema: No Integumentary: Yes: WNL Neurological: Yes: Oriented Psychiatric: Yes: Oriented Labs: CBC, BMP 09/12/18 09:01 09/13/18 06:47 Problem List - Problems (1) Hyponatremia Code(s): E87.1 - HYPO-OSMOLALITY AND HYPONATREMIA Assessment/Plan Current Medications Generic Name Dose Route Start Last Admin Trade Name Freq PRN Reason Stop Dose Admin Acetaminophen 650 mg 09/10/18 17:49 09/12/18 09:23 Tylenol - PO 650 mg Q6H PRN Administration PAIN LEVEL 1-8 Aspirin 81 mg 09/09/18 15:15 09/13/18 11:13 Ecotrin - PO 81 mg DAILY [facility] Administration Atorvastatin Calcium 40 mg 09/10/18 22:00 09/12/18 21:01 Lipitor - PO 40 mg HS [facility] Administration Clopidogrel Bisulfate 75 mg 09/09/18 15:15 09/13/18 11:14 Plavix - PO 75 mg DAILY [facility] Administration Diphenhydramine HCl 25 mg 09/10/18 01:22 09/12/18 21:32 Benadryl - PO 25 mg HS PRN Administration INSOMNIA Ceftriaxone Sodium 1 gm/ 50 mls @ 200 mls/hr 09/09/18 15:15 09/13/18 11:14 Dextrose IVPB 200 mls/hr DAILY [facility] Administration Protocol Sodium Chloride 1,000 mls @ 83 mls/hr 09/12/18 17:00 09/12/18 18:19 Normal Saline - IV 83 mls/hr [facility] Administration Insulin Aspart 1 vial 09/09/18 16:30 09/13/18 12:31 Novolog Vial Sliding Scale - SQ Not Given ACHS [facility] Protocol Levothyroxine Sodium 75 mcg 09/10/18 07:00 09/13/18 06:41 Synthroid - PO 75 mcg DAILY@0700 [facility] Administration Metformin HCl 500 mg 09/09/18 16:30 09/13/18 06:41 Glucophage - PO 500 mg BID@0700,1630 [facility] Administration Nebivolol 10 mg 09/09/18 15:15 09/13/18 11:14 Bystolic - PO 10 mg DAILY [facility] Administration Ranolazine 1,000 mg 09/13/18 11:21 Ranexa - PO BID [facility] Sodium Chloride 1 gm 09/13/18 12:45 09/13/18 14:38 Sodium Chloride Tablet - PO 1 gm DAILY [facility] Administration Zolpidem Tartrate 5 mg 09/11/18 21:29 09/12/18 22:56 Ambien - PO 5 mg HS PRN Administration INSOMNIA Impression 1. hyponatremia - euvolemic 2. htn 3. dm 4. nausea 5. loss of balance 6. hypothyroidism 7. cad Plan - sodium improving - salt tabs on discharge - cont saline - vascular follow up - free water restriction - encourage PO intake
--- NOTE | 2018-09-13 18:42 | PN ---
Progress Note, Physician History of Present Illness: Dizziness improved, denies chest pain or dyspnea. - Current Medication List Current Medications: Active Medications Acetaminophen (Tylenol -) 650 mg PO Q6H PRN PRN Reason: PAIN LEVEL 1-8 Last Admin: 09/12/18 09:23 Dose: 650 mg Aspirin (Ecotrin -) 81 mg PO DAILY [facility] Last Admin: 09/13/18 11:13 Dose: 81 mg Atorvastatin Calcium (Lipitor -) 40 mg PO HS [facility] Last Admin: 09/12/18 21:01 Dose: 40 mg Clopidogrel Bisulfate (Plavix -) 75 mg PO DAILY [facility] Last Admin: 09/13/18 11:14 Dose: 75 mg Diphenhydramine HCl (Benadryl -) 25 mg PO HS PRN PRN Reason: INSOMNIA Last Admin: 09/12/18 21:32 Dose: 25 mg Ceftriaxone Sodium 1 gm/ (Dextrose) 50 mls @ 200 mls/hr IVPB DAILY [facility]; Protocol Last Admin: 09/13/18 11:14 Dose: 200 mls/hr Sodium Chloride (Normal Saline -) 1,000 mls @ 100 mls/hr IV ASDIR [facility] Insulin Aspart (Novolog Vial Sliding Scale -) 1 vial SQ ACHS [facility]; Protocol Last Admin: 09/13/18 17:52 Dose: Not Given Levothyroxine Sodium (Synthroid -) 75 mcg PO DAILY@0700 [facility] Last Admin: 09/13/18 06:41 Dose: 75 mcg Metformin HCl (Glucophage -) 500 mg PO BID@0700,1630 [facility] Last Admin: 09/13/18 17:47 Dose: 500 mg Nebivolol (Bystolic -) 10 mg PO DAILY [facility] Last Admin: 09/13/18 11:14 Dose: 10 mg Ranolazine (Ranexa -) 1,000 mg PO BID [facility] Sodium Chloride (Sodium Chloride Tablet -) 1 gm PO DAILY [facility] Last Admin: 09/13/18 14:38 Dose: 1 gm Zolpidem Tartrate (Ambien -) 5 mg PO HS PRN PRN Reason: INSOMNIA Last Admin: 09/12/18 22:56 Dose: 5 mg - Objective Vital Signs: Vital Signs Temperature 98.1 F 09/13/18 13:46 Pulse Rate 68 09/13/18 13:46 Respiratory Rate 18 09/13/18 13:46 Blood Pressure 144/52 L 09/13/18 13:46 O2 Sat by Pulse Oximetry (%) 98 09/12/18 21:00 Constitutional: Yes: No Distress, Calm Neck: Yes: Supple Cardiovascular: Yes: Regular Rate and Rhythm Respiratory: Yes: Regular, CTA Bilaterally Gastrointestinal: Yes: Normal Bowel Sounds, Soft Edema: No Labs: CBC, BMP 09/12/18 09:01 09/13/18 06:47 Problem List - Problems (1) Dizziness Code(s): R42 - DIZZINESS AND GIDDINESS (2) Gait disturbance Code(s): R26.9 - UNSPECIFIED ABNORMALITIES OF GAIT AND MOBILITY (3) Hyponatremia Code(s): E87.1 - HYPO-OSMOLALITY AND HYPONATREMIA (4) Coronary artery disease Code(s): I25.10 - ATHSCL HEART DISEASE OF [place] CORONARY ARTERY W/O ANG PCTRS Qualifiers: Coronary Disease-Associated Artery/Lesion type: [place] artery [place] vs. transplanted heart: [place] heart Associated angina: with stable angina Qualified Code(s): I25.118 - Atherosclerotic heart disease of [place] coronary artery with other forms of angina pectoris (5) Diabetes mellitus Code(s): E11.9 - TYPE 2 DIABETES MELLITUS WITHOUT COMPLICATIONS Qualifiers: Diabetes mellitus type: type 2 Chronic kidney disease stage: stage 2 (mild ) (6) Hyperlipidemia associated with type 2 diabetes mellitus Code(s): E11.69 - TYPE 2 DIABETES MELLITUS WITH OTHER SPECIFIED COMPLICATION; E78.5 - HYPERLIPIDEMIA, UNSPECIFIED (7) Hypothyroidism Code(s): E03.9 - HYPOTHYROIDISM, UNSPECIFIED Qualifiers: Hypothyroidism type: unspecified Qualified Code(s): E03.9 - Hypothyroidism , unspecified (8) Stented coronary artery Code(s): Z95.5 - PRESENCE OF CORONARY ANGIOPLASTY IMPLANT AND GRAFT Assessment/Plan June 08, 2013: Nuclear stress: Normal MPI, LVEF 74% September 10, 2018 Normal LV and RV size and fxn, abnl LV compliance, mild MR, AR, tr -mild TR 2015 Normal LV and RV size and fxn, mild MR, mild-mod TR, tr VT June 02, 2013: Echocardiogram: Normal LV size and fxn, mild AR, tr MR and TR CT scans x 2 (reviewed): Moderate diffuse atrophy and severe, diffuse, chronic Microvascular disease. Carotid duplex doppler: extensive atheromatous disease with plaque at the Left ICA origin 60-79% stenosis. 1. Dizziness 2. LICA stenosis 3. CAD s/p PCI (EMELI), demand ischemia 4. Diastolic dysfunction 5. HTN/HCVD 6. Type 2 DM with peripheral neuropathy 7. Hyperlipidemia 8. Hypothyroidism 9. Hyponatremia-euvolemic improving P:1. Free water restriction, NSS with monitor NA improvement 2. Continue ASA 81 qd, Plavix 75 qd, Zocor 20 qhs, Bystolic 10 qd, Ranexa 1000 bid, resume Diovan 40 qd as renal fxn stable 3. Neck CTA to assess LICA stenosis, PT for gait training, DVT prophylaxis
[2018-09-13] MEDS: SODIUM CHLORIDE 1,000 ML IV SCH (18:54)
[2018-09-13] MEDS: ZOLPIDEM TARTRATE 5 MG TABLET PO PRN (21:33)
[2018-09-13] MEDS: ATORVASTATIN CA 40 MG TABLET (FP) PO SCH (21:33)
[2018-09-13] MEDS: RANOLAZINE E.R. 500 MG TABLET (FP) PO SCH (21:33)
[2018-09-13] MEDS ORDERED: BISACODYL 5 MG TABLET.DR (FP) PO ONE (23:19)
--- NOTE | 2018-09-13 23:41 | PN ---
Progress Note, Physician History of Present Illness: Pt complains of constipation - Current Medication List Current Medications: Active Medications Acetaminophen (Tylenol -) 650 mg PO Q6H PRN PRN Reason: PAIN LEVEL 1-8 Last Admin: 09/12/18 09:23 Dose: 650 mg Aspirin (Ecotrin -) 81 mg PO DAILY [facility] Last Admin: 09/13/18 11:13 Dose: 81 mg Atorvastatin Calcium (Lipitor -) 40 mg PO HS [facility] Last Admin: 09/13/18 21:33 Dose: 40 mg Bisacodyl (Dulcolax -) 5 mg PO ONCE ONE Stop: 09/13/18 23:20 Clopidogrel Bisulfate (Plavix -) 75 mg PO DAILY [facility] Last Admin: 09/13/18 11:14 Dose: 75 mg Diphenhydramine HCl (Benadryl -) 25 mg PO HS PRN PRN Reason: INSOMNIA Last Admin: 09/12/18 21:32 Dose: 25 mg Ceftriaxone Sodium 1 gm/ (Dextrose) 50 mls @ 200 mls/hr IVPB DAILY [facility]; Protocol Last Admin: 09/13/18 11:14 Dose: 200 mls/hr Sodium Chloride (Normal Saline -) 1,000 mls @ 100 mls/hr IV ASDIR [facility] Last Admin: 09/13/18 18:54 Dose: 100 mls/hr Insulin Aspart (Novolog Vial Sliding Scale -) 1 vial SQ ACHS [facility]; Protocol Last Admin: 09/13/18 21:43 Dose: Not Given Levothyroxine Sodium (Synthroid -) 75 mcg PO DAILY@0700 [facility] Last Admin: 09/13/18 06:41 Dose: 75 mcg Metformin HCl (Glucophage -) 500 mg PO BID@0700,1630 [facility] Last Admin: 09/13/18 17:47 Dose: 500 mg Nebivolol (Bystolic -) 10 mg PO DAILY [facility] Last Admin: 09/13/18 11:14 Dose: 10 mg Polyethylene Glycol (Miralax (For Daily Use) -) 17 gm PO DAILY [facility] Ranolazine (Ranexa -) 1,000 mg PO BID [facility] Last Admin: 09/13/18 21:33 Dose: 1,000 mg Sodium Chloride (Sodium Chloride Tablet -) 1 gm PO DAILY [facility] Last Admin: 09/13/18 14:38 Dose: 1 gm Valsartan (Diovan -) 40 mg PO DAILY [facility] Zolpidem Tartrate (Ambien -) 5 mg PO HS PRN PRN Reason: INSOMNIA Last Admin: 09/13/18 21:33 Dose: 5 mg - Objective Vital Signs: Vital Signs Temperature 97.4 F L 09/13/18 21:40 Pulse Rate 65 09/13/18 21:40 Respiratory Rate 18 09/13/18 21:40 Blood Pressure 133/58 L 09/13/18 21:40 O2 Sat by Pulse Oximetry (%) 98 09/13/18 21:00 Neck: Yes: WNL, Supple Cardiovascular: Yes: WNL, Regular Rate and Rhythm Respiratory: Yes: WNL, Regular, CTA Bilaterally Gastrointestinal: Yes: WNL, Normal Bowel Sounds, Soft Extremities: Yes: WNL Edema: No Labs: CBC, BMP 09/12/18 09:01 09/13/18 06:47 Problem List - Problems (1) CVA (cerebral vascular accident) Assessment/Plan: Repeat CT scan head showed lacunar infarct Cont asa/lipitor Monitor BP Pt unable to have MRI due to pacemaker Carotid stenosis Vasculat consult noted Check CTA of neck and dc planning after ct scan Code(s): I63.9 - CEREBRAL INFARCTION, UNSPECIFIED (2) Altered mental status Assessment/Plan: Metabolic encephalopathy Correct NA+ Cont PT Code(s): R41.82 - ALTERED MENTAL STATUS, UNSPECIFIED (3) UTI (urinary tract infection) Assessment/Plan: IV ceftriaxone Urine culture (+) for klebsiella Code(s): N39.0 - URINARY TRACT INFECTION, SITE NOT SPECIFIED Qualifiers: Urinary tract infection type: acute pyelonephritis Qualified Code(s): N10 - Acute pyelonephritis (4) Hyponatremia Assessment/Plan: Na+ improved Code(s): E87.1 - HYPO-OSMOLALITY AND HYPONATREMIA (5) Coronary artery disease Assessment/Plan: Cont plavix/asa/lipitor Code(s): I25.10 - ATHSCL HEART DISEASE OF [place] CORONARY ARTERY W/O ANG PCTRS Qualifiers: Coronary Disease-Associated Artery/Lesion type: [place] artery [place] vs. transplanted heart: [place] heart Associated angina: with stable angina Qualified Code(s): I25.118 - Atherosclerotic heart disease of [place] coronary artery with other forms of angina pectoris (6) Diabetes mellitus Assessment/Plan: Cont sliding scale w/ coverage Cont metformin Code(s): E11.9 - TYPE 2 DIABETES MELLITUS WITHOUT COMPLICATIONS Qualifiers: Diabetes mellitus type: type 2 Chronic kidney disease stage: stage 2 (mild ) (7) GERD (gastroesophageal reflux disease) Code(s): K21.9 - GASTRO-ESOPHAGEAL REFLUX DISEASE WITHOUT ESOPHAGITIS (8) Hypothyroidism Assessment/Plan: Cont levothyroxine Code(s): E03.9 - HYPOTHYROIDISM, UNSPECIFIED Qualifiers: Hypothyroidism type: unspecified Qualified Code(s): E03.9 - Hypothyroidism , unspecified (9) HLD (hyperlipidemia) Assessment/Plan: Cont lipitor Code(s): E78.5 - HYPERLIPIDEMIA, UNSPECIFIED (10) HTN (hypertension) Assessment/Plan: BP stable Cont metoprolol Code(s): I10 - ESSENTIAL (PRIMARY) HYPERTENSION
[2018-09-14] MEDS: LEVOTHYROXINE NA 75 MCG TABLET (FP) PO SCH (06:08)
[2018-09-14] MEDS: POLYETHYLENE GLYCOL 3350 119 GM BTL PO SCH ×2 (06:08→09:20)
[2018-09-14] MEDS: metFORMIN HCL 500 MG TABLET (FP) PO SCH ×2 (06:08→16:26)
[2018-09-14] MEDS: INSULIN SLIDING SCALE (NOVOLOG) 1 VIAL SQ SCH ×4 (06:12→21:19)
[2018-09-14] MEDS ORDERED: cefTRIAXone SODIUM 1 GM VIAL ONE (08:31)
[2018-09-14] MEDS ORDERED: DEXTROSE 5%-WATER - 50 ML IVPB ONE (08:31)
[2018-09-14] MEDS ORDERED: PT OWN MED DRAWER 7, Y5N ONE ×2 (08:32→08:42)
[2018-09-14 09:08] LABS: ALBUMIN 3.8 g/dl (3.4-5.0); BILIRUBIN,TOTAL 0.5 mg/dL (0.2-1); BLOOD UREA NITROGEN 12.5 mg/dL (7-18); CALCIUM 9.4 mg/dL (8.5-10.1); POTASSIUM 4.9 mmol/L (3.5-5.1); TOT PROT 6.9 g/dl (6.4-8.2)
[2018-09-14] MEDS: NEBIVOLOL 10 MG TABLET (FP) PO SCH (09:17)
[2018-09-14] MEDS: SODIUM CHLORIDE 1 GM TABLET PO SCH (09:17)
[2018-09-14] MEDS: CEFTRIAXONE 1 GM in DEXTROSE 5%-WATER - 50 ML IVPB SCH (09:17)
[2018-09-14] MEDS: RANOLAZINE E.R. 500 MG TABLET (FP) PO SCH ×2 (09:18→21:15)
[2018-09-14] MEDS: CLOPIDOGREL BISULFATE 75 MG TABLET (FP) PO SCH (09:19)
[2018-09-14] MEDS: VALSARTAN 40 MG TABLET (FP) PO SCH (09:19)
[2018-09-14] MEDS: ASPIRIN COATED 81 MG TABLET.EC PO SCH (09:19)
--- NOTE | 2018-09-14 12:03 | PN ---
Progress Note (short form) - Note Progress Note: VASCULAR SURGERY Dr. Cuadra last note reviewed. Awaiting neck CTA (ordered) Will follow.
--- NOTE | 2018-09-14 12:49 | PN ---
Progress Note, Physician Chief Complaint: Events noted Not in distress History of Present Illness: Patient was seen and examined. Awake and alert. Chart was reviewed Denies chest pain, SOB or palpitations - Current Medication List Current Medications: Active Medications Acetaminophen (Tylenol -) 650 mg PO Q6H PRN PRN Reason: PAIN LEVEL 1-8 Last Admin: 09/12/18 09:23 Dose: 650 mg Aspirin (Ecotrin -) 81 mg PO DAILY [facility] Last Admin: 09/14/18 09:19 Dose: 81 mg Atorvastatin Calcium (Lipitor -) 40 mg PO HS [facility] Last Admin: 09/13/18 21:33 Dose: 40 mg Clopidogrel Bisulfate (Plavix -) 75 mg PO DAILY [facility] Last Admin: 09/14/18 09:19 Dose: 75 mg Diphenhydramine HCl (Benadryl -) 25 mg PO HS PRN PRN Reason: INSOMNIA Last Admin: 09/12/18 21:32 Dose: 25 mg Ceftriaxone Sodium 1 gm/ (Dextrose) 50 mls @ 200 mls/hr IVPB DAILY [facility]; Protocol Last Admin: 09/14/18 09:17 Dose: 200 mls/hr Sodium Chloride (Normal Saline -) 1,000 mls @ 100 mls/hr IV ASDIR [facility] Last Admin: 09/13/18 18:54 Dose: 100 mls/hr Insulin Aspart (Novolog Vial Sliding Scale -) 1 vial SQ ACHS [facility]; Protocol Last Admin: 09/14/18 11:53 Dose: Not Given Levothyroxine Sodium (Synthroid -) 75 mcg PO DAILY@0700 [facility] Last Admin: 09/14/18 06:08 Dose: 75 mcg Metformin HCl (Glucophage -) 500 mg PO BID@0700,1630 [facility] Last Admin: 09/14/18 06:08 Dose: 500 mg Nebivolol (Bystolic -) 10 mg PO DAILY [facility] Last Admin: 09/14/18 09:17 Dose: 10 mg Polyethylene Glycol (Miralax (For Daily Use) -) 17 gm PO DAILY [facility] Last Admin: 09/14/18 09:20 Dose: 17 grams Ranolazine (Ranexa -) 1,000 mg PO BID [facility] Last Admin: 09/14/18 09:18 Dose: 1,000 mg Sodium Chloride (Sodium Chloride Tablet -) 1 gm PO DAILY [facility] Last Admin: 09/14/18 09:17 Dose: 1 gm Valsartan (Diovan -) 40 mg PO DAILY [facility] Last Admin: 09/14/18 09:19 Dose: 40 mg Zolpidem Tartrate (Ambien -) 5 mg PO HS PRN PRN Reason: INSOMNIA Last Admin: 09/13/18 21:33 Dose: 5 mg - Objective Vital Signs: Vital Signs Temperature 98.1 F 09/14/18 10:00 Pulse Rate 77 09/14/18 10:00 Respiratory Rate 18 09/14/18 10:00 Blood Pressure 155/60 09/14/18 10:00 O2 Sat by Pulse Oximetry (%) 97 09/14/18 09:00 Eyes: Yes: PERRL HENT: Yes: Atraumatic Neck: Yes: Supple Cardiovascular: Yes: Regular Rate and Rhythm, S1, S2 Respiratory: Yes: CTA Bilaterally Gastrointestinal: Yes: Normal Bowel Sounds, Soft. No: Tenderness Edema: No Labs: CBC, BMP 09/12/18 09:01 09/14/18 07:49 Problem List - Problems (1) Carotid artery disease Code(s): I77.9 - DISORDER OF ARTERIES AND ARTERIOLES, UNSPECIFIED (2) CAD (coronary artery disease) Code(s): I25.10 - ATHSCL HEART DISEASE OF [place] CORONARY ARTERY W/O ANG PCTRS Qualifiers: Coronary Disease-Associated Artery/Lesion type: [place] artery [place] vs. transplanted heart: [place] heart Associated angina: without angina Qualified Code(s): I25.10 - Atherosclerotic heart disease of [place] coronary artery without angina pectoris (3) CVA (cerebral vascular accident) Code(s): I63.9 - CEREBRAL INFARCTION, UNSPECIFIED (4) Dizziness Code(s): R42 - DIZZINESS AND GIDDINESS (5) HLD (hyperlipidemia) Code(s): E78.5 - HYPERLIPIDEMIA, UNSPECIFIED Qualifiers: Hyperlipidemia type: pure hypercholesterolemia Qualified Code(s): E78.00 - Pure hypercholesterolemia, unspecified; E78.0 - Pure hypercholesterolemia (6) HTN (hypertension) Code(s): I10 - ESSENTIAL (PRIMARY) HYPERTENSION Qualifiers: Hypertension type: essential hypertension Qualified Code(s): I10 - Essential (primary) hypertension (7) Hyponatremia Code(s): E87.1 - HYPO-OSMOLALITY AND HYPONATREMIA (8) Diabetes mellitus Code(s): E11.9 - TYPE 2 DIABETES MELLITUS WITHOUT COMPLICATIONS Qualifiers: Diabetes mellitus type: type 2 Chronic kidney disease stage: stage 2 (mild ) (9) GERD (gastroesophageal reflux disease) Code(s): K21.9 - GASTRO-ESOPHAGEAL REFLUX DISEASE WITHOUT ESOPHAGITIS (10) Hypothyroidism Code(s): E03.9 - HYPOTHYROIDISM, UNSPECIFIED Qualifiers: Hypothyroidism type: unspecified Qualified Code(s): E03.9 - Hypothyroidism , unspecified Assessment/Plan 1. Dizziness 2. Left carotid aICA stenosis 3. CAD s/p PCI (EMELI), demand ischemia 4. Diastolic dysfunction 5. HTN/HCVD 6. Type 2 DM with peripheral neuropathy 7. Hyperlipidemia 8. Hypothyroidism 9. Hyponatremia-euvolemic improving PLAN: 1. Correct NA 2. Continue ASA 81 mg QD, Plavix 75 mg QD, Zocor 20 mg QHS, Bystolic 10 mg QD, Ranexa 1000 mg BID and Diovan 40 mg QD as tolerated 3. Neck CTA to assess LICA stenosis, PT for gait training and DVT prophylaxis Robert Morgan MD
--- NOTE | 2018-09-14 15:34 | PN ---
Progress Note, Physician History of Present Illness: Pt seen and examined at bedside. She is awake and alert. She denies shortness of breath. - Current Medication List Current Medications: Active Medications Acetaminophen (Tylenol -) 650 mg PO Q6H PRN PRN Reason: PAIN LEVEL 1-8 Last Admin: 09/12/18 09:23 Dose: 650 mg Aspirin (Ecotrin -) 81 mg PO DAILY [facility] Last Admin: 09/14/18 09:19 Dose: 81 mg Atorvastatin Calcium (Lipitor -) 40 mg PO HS [facility] Last Admin: 09/13/18 21:33 Dose: 40 mg Clopidogrel Bisulfate (Plavix -) 75 mg PO DAILY [facility] Last Admin: 09/14/18 09:19 Dose: 75 mg Diphenhydramine HCl (Benadryl -) 25 mg PO HS PRN PRN Reason: INSOMNIA Last Admin: 09/12/18 21:32 Dose: 25 mg Ceftriaxone Sodium 1 gm/ (Dextrose) 50 mls @ 200 mls/hr IVPB DAILY [facility]; Protocol Last Admin: 09/14/18 09:17 Dose: 200 mls/hr Sodium Chloride (Normal Saline -) 1,000 mls @ 100 mls/hr IV ASDIR [facility] Last Admin: 09/13/18 18:54 Dose: 100 mls/hr Insulin Aspart (Novolog Vial Sliding Scale -) 1 vial SQ ACHS [facility]; Protocol Last Admin: 09/14/18 11:53 Dose: Not Given Levothyroxine Sodium (Synthroid -) 75 mcg PO DAILY@0700 [facility] Last Admin: 09/14/18 06:08 Dose: 75 mcg Metformin HCl (Glucophage -) 500 mg PO BID@0700,1630 [facility] Last Admin: 09/14/18 06:08 Dose: 500 mg Nebivolol (Bystolic -) 10 mg PO DAILY [facility] Last Admin: 09/14/18 09:17 Dose: 10 mg Polyethylene Glycol (Miralax (For Daily Use) -) 17 gm PO DAILY [facility] Last Admin: 09/14/18 09:20 Dose: 17 grams Ranolazine (Ranexa -) 1,000 mg PO BID [facility] Last Admin: 09/14/18 09:18 Dose: 1,000 mg Sodium Chloride (Sodium Chloride Tablet -) 1 gm PO DAILY [facility] Last Admin: 09/14/18 09:17 Dose: 1 gm Valsartan (Diovan -) 40 mg PO DAILY [facility] Last Admin: 09/14/18 09:19 Dose: 40 mg Zolpidem Tartrate (Ambien -) 5 mg PO HS PRN PRN Reason: INSOMNIA Last Admin: 09/13/18 21:33 Dose: 5 mg - Objective Vital Signs: Vital Signs Temperature 98.1 F 09/14/18 14:23 Pulse Rate 68 09/14/18 14:23 Respiratory Rate 20 09/14/18 14:23 Blood Pressure 155/56 L 09/14/18 14:23 O2 Sat by Pulse Oximetry (%) 97 09/14/18 09:00 Constitutional: Yes: Calm Eyes: Yes: Conjunctiva Clear HENT: Yes: Atraumatic Cardiovascular: Yes: S1, S2 Respiratory: Yes: CTA Bilaterally Gastrointestinal: Yes: Normal Bowel Sounds, Soft Genitourinary: Yes: WNL Musculoskeletal: Yes: WNL Edema: No Neurological: Yes: Oriented Psychiatric: Yes: Oriented Labs: CBC, BMP 09/12/18 09:01 09/14/18 07:49 Problem List - Problems (1) Hyponatremia Code(s): E87.1 - HYPO-OSMOLALITY AND HYPONATREMIA Assessment/Plan Current Medications Generic Name Dose Route Start Last Admin Trade Name Freq PRN Reason Stop Dose Admin Acetaminophen 650 mg 09/10/18 17:49 09/12/18 09:23 Tylenol - PO 650 mg Q6H PRN Administration PAIN LEVEL 1-8 Aspirin 81 mg 09/09/18 15:15 09/14/18 09:19 Ecotrin - PO 81 mg DAILY [facility] Administration Atorvastatin Calcium 40 mg 09/10/18 22:00 09/13/18 21:33 Lipitor - PO 40 mg HS [facility] Administration Clopidogrel Bisulfate 75 mg 09/09/18 15:15 09/14/18 09:19 Plavix - PO 75 mg DAILY [facility] Administration Diphenhydramine HCl 25 mg 09/10/18 01:22 09/12/18 21:32 Benadryl - PO 25 mg HS PRN Administration INSOMNIA Ceftriaxone Sodium 1 gm/ 50 mls @ 200 mls/hr 09/09/18 15:15 09/14/18 09:17 Dextrose IVPB 200 mls/hr DAILY [facility] Administration Protocol Sodium Chloride 1,000 mls @ 100 mls/hr 09/13/18 16:49 09/13/18 18:54 Normal Saline - IV 100 mls/hr ASDIR [facility] Administration Insulin Aspart 1 vial 09/09/18 16:30 09/14/18 11:53 Novolog Vial Sliding Scale - SQ Not Given ACHS [facility] Protocol Levothyroxine Sodium 75 mcg 09/10/18 07:00 09/14/18 06:08 Synthroid - PO 75 mcg DAILY@0700 [facility] Administration Metformin HCl 500 mg 09/09/18 16:30 09/14/18 06:08 Glucophage - PO 500 mg BID@0700,1630 [facility] Administration Nebivolol 10 mg 09/09/18 15:15 09/14/18 09:17 Bystolic - PO 10 mg DAILY [facility] Administration Polyethylene Glycol 17 gm 09/13/18 23:19 09/14/18 09:20 Miralax (For Daily Use) - PO 17 grams DAILY [facility] Administration Ranolazine 1,000 mg 09/13/18 11:21 09/14/18 09:18 Ranexa - PO 1,000 mg BID [facility] Administration Sodium Chloride 1 gm 09/13/18 12:45 09/14/18 09:17 Sodium Chloride Tablet - PO 1 gm DAILY [facility] Administration Valsartan 40 mg 09/14/18 10:00 09/14/18 09:19 Diovan - PO 40 mg DAILY [facility] Administration Zolpidem Tartrate 5 mg 09/11/18 21:29 09/13/18 21:33 Ambien - PO 5 mg HS PRN Administration INSOMNIA Impression 1. hyponatremia - euvolemic 2. htn 3. dm 4. nausea 5. loss of balance 6. hypothyroidism 7. cad Plan - cont salt tabs - cont saline - restrict free water - encourage PO intake - follow cta results
[2018-09-14] MEDS: SODIUM CHLORIDE 1,000 ML IV SCH (21:14)
[2018-09-14] MEDS: ATORVASTATIN CA 40 MG TABLET (FP) PO SCH (21:15)
[2018-09-14] MEDS: ZOLPIDEM TARTRATE 5 MG TABLET PO PRN (21:15)
--- NOTE | 2018-09-14 22:42 | PN ---
Progress Note, Physician - Current Medication List Current Medications: Active Medications Acetaminophen (Tylenol -) 650 mg PO Q6H PRN PRN Reason: PAIN LEVEL 1-8 Last Admin: 09/12/18 09:23 Dose: 650 mg Aspirin (Ecotrin -) 81 mg PO DAILY [facility] Last Admin: 09/14/18 09:19 Dose: 81 mg Atorvastatin Calcium (Lipitor -) 40 mg PO HS [facility] Last Admin: 09/14/18 21:15 Dose: 40 mg Clopidogrel Bisulfate (Plavix -) 75 mg PO DAILY [facility] Last Admin: 09/14/18 09:19 Dose: 75 mg Diphenhydramine HCl (Benadryl -) 25 mg PO HS PRN PRN Reason: INSOMNIA Last Admin: 09/12/18 21:32 Dose: 25 mg Ceftriaxone Sodium 1 gm/ (Dextrose) 50 mls @ 200 mls/hr IVPB DAILY [facility]; Protocol Last Admin: 09/14/18 09:17 Dose: 200 mls/hr Sodium Chloride (Normal Saline -) 1,000 mls @ 100 mls/hr IV ASDIR [facility] Last Admin: 09/14/18 21:14 Dose: 100 mls/hr Insulin Aspart (Novolog Vial Sliding Scale -) 1 vial SQ ACHS [facility]; Protocol Last Admin: 09/14/18 21:19 Dose: Not Given Levothyroxine Sodium (Synthroid -) 75 mcg PO DAILY@0700 [facility] Last Admin: 09/14/18 06:08 Dose: 75 mcg Metformin HCl (Glucophage -) 500 mg PO BID@0700,1630 [facility] Last Admin: 09/14/18 16:26 Dose: 500 mg Nebivolol (Bystolic -) 10 mg PO DAILY [facility] Last Admin: 09/14/18 09:17 Dose: 10 mg Polyethylene Glycol (Miralax (For Daily Use) -) 17 gm PO DAILY [facility] Last Admin: 09/14/18 09:20 Dose: 17 grams Ranolazine (Ranexa -) 1,000 mg PO BID [facility] Last Admin: 09/14/18 21:15 Dose: 1,000 mg Sodium Chloride (Sodium Chloride Tablet -) 1 gm PO DAILY [facility] Last Admin: 09/14/18 09:17 Dose: 1 gm Valsartan (Diovan -) 40 mg PO DAILY [facility] Last Admin: 09/14/18 09:19 Dose: 40 mg Zolpidem Tartrate (Ambien -) 5 mg PO HS PRN PRN Reason: INSOMNIA Last Admin: 09/14/18 21:15 Dose: 5 mg - Objective Vital Signs: Vital Signs Temperature 98.0 F 09/14/18 20:54 Pulse Rate 63 09/14/18 22:09 Respiratory Rate 18 09/14/18 22:09 Blood Pressure 138/56 L 09/14/18 22:09 O2 Sat by Pulse Oximetry (%) 100 09/14/18 21:00 Labs: CBC, BMP 09/12/18 09:01 09/14/18 07:49 Problem List - Problems (1) CVA (cerebral vascular accident) Code(s): I63.9 - CEREBRAL INFARCTION, UNSPECIFIED (2) Altered mental status Code(s): R41.82 - ALTERED MENTAL STATUS, UNSPECIFIED (3) UTI (urinary tract infection) Code(s): N39.0 - URINARY TRACT INFECTION, SITE NOT SPECIFIED Qualifiers: Urinary tract infection type: acute pyelonephritis Qualified Code(s): N10 - Acute pyelonephritis (4) Hyponatremia Code(s): E87.1 - HYPO-OSMOLALITY AND HYPONATREMIA (5) Coronary artery disease Code(s): I25.10 - ATHSCL HEART DISEASE OF [place] CORONARY ARTERY W/O ANG PCTRS Qualifiers: Coronary Disease-Associated Artery/Lesion type: [place] artery [place] vs. transplanted heart: [place] heart Associated angina: with stable angina Qualified Code(s): I25.118 - Atherosclerotic heart disease of [place] coronary artery with other forms of angina pectoris (6) Diabetes mellitus Code(s): E11.9 - TYPE 2 DIABETES MELLITUS WITHOUT COMPLICATIONS Qualifiers: Diabetes mellitus type: type 2 Chronic kidney disease stage: stage 2 (mild ) (7) GERD (gastroesophageal reflux disease) Code(s): K21.9 - GASTRO-ESOPHAGEAL REFLUX DISEASE WITHOUT ESOPHAGITIS (8) Hypothyroidism Code(s): E03.9 - HYPOTHYROIDISM, UNSPECIFIED Qualifiers: Hypothyroidism type: unspecified Qualified Code(s): E03.9 - Hypothyroidism , unspecified (9) HLD (hyperlipidemia) Code(s): E78.5 - HYPERLIPIDEMIA, UNSPECIFIED Qualifiers: Hyperlipidemia type: pure hypercholesterolemia Qualified Code(s): E78.00 - Pure hypercholesterolemia, unspecified; E78.0 - Pure hypercholesterolemia (10) HTN (hypertension) Code(s): I10 - ESSENTIAL (PRIMARY) HYPERTENSION Qualifiers: Hypertension type: essential hypertension Qualified Code(s): I10 - Essential (primary) hypertension
[2018-09-14] MEDS: diphenhydrAMINE HCL 25 MG CAPSULE (FP) PO PRN (22:44)
[2018-09-15] MEDS: SODIUM CHLORIDE 1,000 ML IV SCH (06:07)
[2018-09-15] MEDS: INSULIN SLIDING SCALE (NOVOLOG) 1 VIAL SQ SCH ×2 (06:08→11:19)
[2018-09-15] MEDS: LEVOTHYROXINE NA 75 MCG TABLET (FP) PO SCH (06:08)
[2018-09-15] MEDS: metFORMIN HCL 500 MG TABLET (FP) PO SCH (06:08)
[2018-09-15] MEDS ORDERED: cefTRIAXone SODIUM 1 GM VIAL ONE (08:38)
[2018-09-15] MEDS ORDERED: DEXTROSE 5%-WATER - 50 ML IVPB ONE (08:39)
[2018-09-15] MEDS: CEFTRIAXONE 1 GM in DEXTROSE 5%-WATER - 50 ML IVPB SCH (09:00)
[2018-09-15] MEDS: VALSARTAN 40 MG TABLET (FP) PO SCH (09:10)
[2018-09-15] MEDS: RANOLAZINE E.R. 500 MG TABLET (FP) PO SCH (09:10)
[2018-09-15] MEDS: ASPIRIN COATED 81 MG TABLET.EC PO SCH (09:10)
[2018-09-15] MEDS: CLOPIDOGREL BISULFATE 75 MG TABLET (FP) PO SCH (09:10)
[2018-09-15] MEDS ORDERED: PT OWN MED DRAWER 7, Y5N ONE (09:10)
[2018-09-15] MEDS: SODIUM CHLORIDE 1 GM TABLET PO SCH (09:11)
[2018-09-15] MEDS: POLYETHYLENE GLYCOL 3350 119 GM BTL PO SCH (09:11)
[2018-09-15] MEDS: NEBIVOLOL 10 MG TABLET (FP) PO SCH (09:11)
--- NOTE | 2018-09-15 09:30 | PN ---
Progress Note (short form) - Note Progress Note: VASCULAR SURGERY Neck CTA completed yesterday. Awaiting official results. Will cont to follow.
--- NOTE | 2018-09-15 10:27 | PN ---
Progress Note, Physician History of Present Illness: Dizziness improved, denies chest pain or dyspnea. Eating lunch in chair. - Current Medication List Current Medications: Active Medications Acetaminophen (Tylenol -) 650 mg PO Q6H PRN PRN Reason: PAIN LEVEL 1-8 Last Admin: 09/12/18 09:23 Dose: 650 mg Aspirin (Ecotrin -) 81 mg PO DAILY [facility] Last Admin: 09/15/18 09:10 Dose: 81 mg Atorvastatin Calcium (Lipitor -) 40 mg PO HS [facility] Last Admin: 09/14/18 21:15 Dose: 40 mg Clopidogrel Bisulfate (Plavix -) 75 mg PO DAILY [facility] Last Admin: 09/15/18 09:10 Dose: 75 mg Diphenhydramine HCl (Benadryl -) 25 mg PO HS PRN PRN Reason: INSOMNIA Last Admin: 09/14/18 22:44 Dose: 25 mg Ceftriaxone Sodium 1 gm/ (Dextrose) 50 mls @ 200 mls/hr IVPB DAILY [facility]; Protocol Last Admin: 09/15/18 09:00 Dose: 200 mls/hr Sodium Chloride (Normal Saline -) 1,000 mls @ 100 mls/hr IV ASDIR [facility] Last Admin: 09/15/18 06:07 Dose: 100 mls/hr Insulin Aspart (Novolog Vial Sliding Scale -) 1 vial SQ ACHS [facility]; Protocol Last Admin: 09/15/18 06:08 Dose: Not Given Levothyroxine Sodium (Synthroid -) 75 mcg PO DAILY@0700 [facility] Last Admin: 09/15/18 06:08 Dose: 75 mcg Metformin HCl (Glucophage -) 500 mg PO BID@0700,1630 [facility] Last Admin: 09/15/18 06:08 Dose: 500 mg Nebivolol (Bystolic -) 10 mg PO DAILY [facility] Last Admin: 09/15/18 09:11 Dose: 10 mg Polyethylene Glycol (Miralax (For Daily Use) -) 17 gm PO DAILY [facility] Last Admin: 09/15/18 09:11 Dose: 17 grams Ranolazine (Ranexa -) 1,000 mg PO BID [facility] Last Admin: 09/15/18 09:10 Dose: 1,000 mg Sodium Chloride (Sodium Chloride Tablet -) 1 gm PO DAILY [facility] Last Admin: 09/15/18 09:11 Dose: 1 gm Valsartan (Diovan -) 40 mg PO DAILY [facility] Last Admin: 09/15/18 09:10 Dose: 40 mg Zolpidem Tartrate (Ambien -) 5 mg PO HS PRN PRN Reason: INSOMNIA Last Admin: 09/14/18 21:15 Dose: 5 mg - Objective Vital Signs: Vital Signs Temperature 97.8 F 09/15/18 05:28 Pulse Rate 61 09/15/18 05:28 Respiratory Rate 18 09/15/18 05:28 Blood Pressure 145/52 L 09/15/18 05:28 O2 Sat by Pulse Oximetry (%) 100 09/14/18 21:00 Constitutional: Yes: No Distress, Calm Neck: Yes: Supple, Other (Left carotid bruits) Cardiovascular: Yes: Regular Rate and Rhythm Respiratory: Yes: Regular, CTA Bilaterally Gastrointestinal: Yes: Normal Bowel Sounds, Soft Edema: No Labs: CBC, BMP 09/12/18 09:01 09/14/18 07:49 Problem List - Problems (1) Dizziness Code(s): R42 - DIZZINESS AND GIDDINESS (2) Gait disturbance Code(s): R26.9 - UNSPECIFIED ABNORMALITIES OF GAIT AND MOBILITY (3) Hyponatremia Code(s): E87.1 - HYPO-OSMOLALITY AND HYPONATREMIA (4) Coronary artery disease Code(s): I25.10 - ATHSCL HEART DISEASE OF [place] CORONARY ARTERY W/O ANG PCTRS Qualifiers: Coronary Disease-Associated Artery/Lesion type: [place] artery [place] vs. transplanted heart: [place] heart Associated angina: with stable angina Qualified Code(s): I25.118 - Atherosclerotic heart disease of [place] coronary artery with other forms of angina pectoris (5) Diabetes mellitus Code(s): E11.9 - TYPE 2 DIABETES MELLITUS WITHOUT COMPLICATIONS Qualifiers: Diabetes mellitus type: type 2 Chronic kidney disease stage: stage 2 (mild ) (6) Hyperlipidemia associated with type 2 diabetes mellitus Code(s): E11.69 - TYPE 2 DIABETES MELLITUS WITH OTHER SPECIFIED COMPLICATION; E78.5 - HYPERLIPIDEMIA, UNSPECIFIED (7) Hypothyroidism Code(s): E03.9 - HYPOTHYROIDISM, UNSPECIFIED Qualifiers: Hypothyroidism type: unspecified Qualified Code(s): E03.9 - Hypothyroidism , unspecified (8) Stented coronary artery Code(s): Z95.5 - PRESENCE OF CORONARY ANGIOPLASTY IMPLANT AND GRAFT Assessment/Plan June 08, 2013: Nuclear stress: Normal MPI, LVEF 74% September 10, 2018 Normal LV and RV size and fxn, abnl LV compliance, mild MR, AR, tr -mild TR 2015 Normal LV and RV size and fxn, mild MR, mild-mod TR, tr AL June 02, 2013: Echocardiogram: Normal LV size and fxn, mild AR, tr MR and TR CT scans x 2 (reviewed): Moderate diffuse atrophy and severe, diffuse, chronic Microvascular disease. Carotid duplex doppler: extensive atheromatous disease with plaque at the Left ICA origin 60-79% stenosis. CTA Left ICA 80% 1. Dizziness 2. Left carotid 80% ICA stenosis 3. CAD s/p PCI (EMELI), demand ischemia 4. Diastolic dysfunction 5. HTN/HCVD, BP not at goal control 6. Type 2 DM with peripheral neuropathy 7. Hyperlipidemia 8. Hypothyroidism 9. Hyponatremia-euvolemic improving PLAN: 1. Correct NA as you are 2. Continue ASA 81 mg QD, Plavix 75 mg QD, Zocor 20 mg QHS, Bystolic 10 mg QD, Ranexa 1000 mg BID and increase Diovan 80 mg QD as tolerated 3. Carotid intervention per vascular, PT for gait training and DVT prophylaxis
[2018-09-15] MEDS ORDERED: VALSARTAN 80 MG TABLET (UD) PO SCH (12:20)
[2018-09-15 12:25] VITALS: BP 153/72; PULSE 73; TEMP 97
--- NOTE | 2018-09-15 12:59 | PN ---
Progress Note, Physician History of Present Illness: Pt seen and examined at bedside. She is asking to go home. She says that she fees well. She is not eating much still. - Current Medication List Current Medications: Active Medications Acetaminophen (Tylenol -) 650 mg PO Q6H PRN PRN Reason: PAIN LEVEL 1-8 Last Admin: 09/12/18 09:23 Dose: 650 mg Aspirin (Ecotrin -) 81 mg PO DAILY [facility] Last Admin: 09/15/18 09:10 Dose: 81 mg Atorvastatin Calcium (Lipitor -) 40 mg PO HS [facility] Last Admin: 09/14/18 21:15 Dose: 40 mg Clopidogrel Bisulfate (Plavix -) 75 mg PO DAILY [facility] Last Admin: 09/15/18 09:10 Dose: 75 mg Diphenhydramine HCl (Benadryl -) 25 mg PO HS PRN PRN Reason: INSOMNIA Last Admin: 09/14/18 22:44 Dose: 25 mg Ceftriaxone Sodium 1 gm/ (Dextrose) 50 mls @ 200 mls/hr IVPB DAILY [facility]; Protocol Last Admin: 09/15/18 09:00 Dose: 200 mls/hr Sodium Chloride (Normal Saline -) 1,000 mls @ 100 mls/hr IV ASDIR [facility] Last Admin: 09/15/18 06:07 Dose: 100 mls/hr Insulin Aspart (Novolog Vial Sliding Scale -) 1 vial SQ ACHS [facility]; Protocol Last Admin: 09/15/18 11:19 Dose: Not Given Levothyroxine Sodium (Synthroid -) 75 mcg PO DAILY@0700 [facility] Last Admin: 09/15/18 06:08 Dose: 75 mcg Metformin HCl (Glucophage -) 500 mg PO BID@0700,1630 [facility] Last Admin: 09/15/18 06:08 Dose: 500 mg Nebivolol (Bystolic -) 10 mg PO DAILY [facility] Last Admin: 09/15/18 09:11 Dose: 10 mg Polyethylene Glycol (Miralax (For Daily Use) -) 17 gm PO DAILY [facility] Last Admin: 09/15/18 09:11 Dose: 17 grams Ranolazine (Ranexa -) 1,000 mg PO BID [facility] Last Admin: 09/15/18 09:10 Dose: 1,000 mg Sodium Chloride (Sodium Chloride Tablet -) 1 gm PO DAILY [facility] Last Admin: 09/15/18 09:11 Dose: 1 gm Valsartan (Diovan -) 80 mg PO DAILY [facility] Zolpidem Tartrate (Ambien -) 5 mg PO HS PRN PRN Reason: INSOMNIA Last Admin: 09/14/18 21:15 Dose: 5 mg - Objective Vital Signs: Vital Signs Temperature 97.0 F L 09/15/18 10:00 Pulse Rate 73 09/15/18 10:00 Respiratory Rate 18 09/15/18 10:00 Blood Pressure 153/72 09/15/18 10:00 O2 Sat by Pulse Oximetry (%) 100 09/15/18 09:00 Constitutional: Yes: Calm Eyes: Yes: Conjunctiva Clear HENT: Yes: Atraumatic Neck: Yes: Supple Cardiovascular: Yes: S1, S2 Respiratory: Yes: CTA Bilaterally Gastrointestinal: Yes: Soft Genitourinary: Yes: WNL Musculoskeletal: Yes: WNL Edema: No Neurological: Yes: Oriented Psychiatric: Yes: Oriented Labs: CBC, BMP 09/12/18 09:01 09/14/18 07:49 Problem List - Problems (1) Hyponatremia Code(s): E87.1 - HYPO-OSMOLALITY AND HYPONATREMIA Assessment/Plan Current Medications Generic Name Dose Route Start Last Admin Trade Name Freq PRN Reason Stop Dose Admin Acetaminophen 650 mg 09/10/18 17:49 09/12/18 09:23 Tylenol - PO 650 mg Q6H PRN Administration PAIN LEVEL 1-8 Aspirin 81 mg 09/09/18 15:15 09/15/18 09:10 Ecotrin - PO 81 mg DAILY [facility] Administration Atorvastatin Calcium 40 mg 09/10/18 22:00 09/14/18 21:15 Lipitor - PO 40 mg HS [facility] Administration Clopidogrel Bisulfate 75 mg 09/09/18 15:15 09/15/18 09:10 Plavix - PO 75 mg DAILY [facility] Administration Diphenhydramine HCl 25 mg 09/10/18 01:22 09/14/18 22:44 Benadryl - PO 25 mg HS PRN Administration INSOMNIA Ceftriaxone Sodium 1 gm/ 50 mls @ 200 mls/hr 09/09/18 15:15 09/15/18 09:00 Dextrose IVPB 200 mls/hr DAILY [facility] Administration Protocol Sodium Chloride 1,000 mls @ 100 mls/hr 09/13/18 16:49 07/03/19 06:07 Normal Saline - IV 100 mls/hr ASDIR [facility] Administration Insulin Aspart 1 vial 09/09/18 16:30 09/15/18 11:19 Novolog Vial Sliding Scale - SQ Not Given ACHS [facility] Protocol Levothyroxine Sodium 75 mcg 09/10/18 07:00 09/15/18 06:08 Synthroid - PO 75 mcg DAILY@0700 [facility] Administration Metformin HCl 500 mg 09/09/18 16:30 09/15/18 06:08 Glucophage - PO 500 mg BID@0700,1630 [facility] Administration Nebivolol 10 mg 09/09/18 15:15 09/15/18 09:11 Bystolic - PO 10 mg DAILY [facility] Administration Polyethylene Glycol 17 gm 09/13/18 23:19 09/15/18 09:11 Miralax (For Daily Use) - PO 17 grams DAILY [facility] Administration Ranolazine 1,000 mg 09/13/18 11:21 09/15/18 09:10 Ranexa - PO 1,000 mg BID [facility] Administration Sodium Chloride 1 gm 09/13/18 12:45 09/15/18 09:11 Sodium Chloride Tablet - PO 1 gm DAILY [facility] Administration Valsartan 80 mg 09/15/18 12:20 Diovan - PO DAILY [facility] Zolpidem Tartrate 5 mg 09/11/18 21:29 09/14/18 21:15 Ambien - PO 5 mg HS PRN Administration INSOMNIA Impression 1. hyponatremia - euvolemic 2. htn 3. dm 4. nausea 5. loss of balance 6. hypothyroidism 7. cad Plan - cont salt tabs and encourage PO intake - discussed free water restriction - follow up cta and vascular - will see in office, she says she will make an appointment
== END 2018-09-15 13:38 | disposition home or self-care (01) | DRG 64 ==
LOC: JER 10:04 → JERBED 13:34 → J7W 15:35
PROVIDERS: ADMIT Internal Medicine; ATTEND Internal Medicine
DX: I63.9 Cerebral infarction, unspecified (principal); G93.41 Metabolic encephalopathy; N39.0 Urinary tract infection, site not specified; E87.1 Hypo-osmolality and hyponatremia; I24.8 Other forms of acute ischemic heart disease; I11.9 Hypertensive heart disease without heart failure; E11.42 Type 2 diabetes mellitus with diabetic polyneuropathy; R63.1 Polydipsia; I65.22 Occlusion and stenosis of left carotid artery; E03.9 Hypothyroidism, unspecified; I25.10 Atherosclerotic heart disease of native coronary artery without angina pectoris; Z79.84 Long term (current) use of oral hypoglycemic drugs; E78.5 Hyperlipidemia, unspecified; Z95.5 Presence of coronary angioplasty implant and graft; I44.0 Atrioventricular block, first degree; R00.1 Bradycardia, unspecified; S09.8XXA Other specified injuries of head, initial encounter; W01.0XXA Fall on same level from slipping, tripping and stumbling without subsequent striking against object, initial encounter; Y93.89 Activity, other specified; Y92.231 Patient bathroom in hospital as the place of occurrence of the external cause; Y99.8 Other external cause status; M79.651 Pain in right thigh; R11.0 Nausea; Z95.0 Presence of cardiac pacemaker; B96.1 Klebsiella pneumoniae [K. pneumoniae] as the cause of diseases classified elsewhere; K59.00 Constipation, unspecified
CPT/HCPCS: 36415; 70450-TC; 70498-TC; 73502-TC-RT-FY; 73560-TC-RT-FY; 80048; 80053; 81003; 82436; 82533; 82962; 83930; 83935; 84133; 84300; 84443; 84484; 85025; 87086; 87186; 93005; 93010; 93306-TC; 93880-TC; 97116-GP; 97161-GP; 99282-25; J7030

== ENCOUNTER 2018-10-28 08:00 | Inpatient (IN) | payer MEDICARE, OTHER ==
[2018-10-27 16:51] VITALS: BMI 18.8
[2018-11-04] MEDS ORDERED: PROPOFOL 20 ML ONE (07:15)
[2018-11-04] MEDS ORDERED: SUCCINYLCHOLINE CHLORIDE 200 MG/10 ML SYRINGE ONE (07:15)
[2018-11-04] MEDS ORDERED: ROCURONIUM BROMIDE 50 MG/5 ML SYRINGE ONE (07:15)
[2018-11-04] MEDS ORDERED: MIDAZOLAM HCL 2 MG/2 ML SINGLE DOSE VIAL ONE ×2 (07:16)
[2018-11-04] MEDS ORDERED: DEXAMETHASONE SOD PHOSPHATE 4 MG/1 ML VIAL ONE (07:18)
[2018-11-04] MEDS ORDERED: PHENYLEPHRINE HCL 10 MG/1 ML SINGLE DOSE VIAL ONE (07:18)
[2018-11-04] MEDS ORDERED: NITROGLYCERIN 50 MG/10 ML VIAL IVPB ONE (07:19)
[2018-11-04] MEDS ORDERED: LIDOCAINE HCL 1%, 10 MG/ML (20ML VIAL) ONE (07:24)
[2018-11-04] MEDS ORDERED: CEFAZOLIN 2 GM in DEXTROSE 5%-WATER - 100 ML IVPB ONE (07:49)
--- NOTE | 2018-11-04 08:15 | HP ---
Admitting History and Physical - Admission Chief Complaint: Pt with left ICA 80% stenosis. Pt is asymptomatic Limitations to Obtaining History: No Limitations - Past Medical History Cardiovascular: Yes: CAD, HTN, Hyperlipdemia Gastrointestinal: Yes: GERD ...: No Endocrine: Yes: Diabetes Mellitus, Hypothyroidism - Past Surgical History Past Surgical History: Yes: Stent - Smoking History Smoking history: Never smoked Have you smoked in the past 12 months: No - Alcohol/Substance Use Hx Alcohol Use: No Home Medications - Allergies Allergies/Adverse Reactions: Allergies Allergy/AdvReac Type Severity Reaction Status Date / Time No Known Allergies Allergy Verified 10/27/18 16:05 - Home Medications Home Medications: Ambulatory Orders Aspirin Coated [Ecotrin -] 81 mg PO DAILY #30 tablet.ec 02/15/16 Clopidogrel Bisulfate [Plavix -] 75 mg PO DAILY #30 tablet 02/15/16 Levothyroxine [Synthroid -] 75 mcg PO DAILY@0700 #30 tablet 02/15/16 Nebivolol [Bystolic -] 10 mg PO DAILY #30 tab 02/15/16 metFORMIN HCL [Glucophage -] 500 mg PO BID@0700,1630 #30 tablet 02/15/16 Atorvastatin Ca [Lipitor] 40 mg PO HS #30 tablet 09/15/18 Sodium Chloride Tablet - 1 gm PO DAILY #30 tablet 09/15/18 Valsartan [Diovan] 80 mg PO DAILY #30 tablet 09/15/18 Zolpidem Tartrate [Ambien] 5 mg PO HS PRN #30 tablet MDD 1 09/15/18 Review of Systems - Review of Systems Constitutional: reports: No Symptoms Eyes: reports: No Symptoms HENT: reports: No Symptoms Neck: reports: No Symptoms Cardiovascular: reports: No Symptoms Respiratory: reports: No Symptoms Gastrointestinal: reports: No Symptoms Genitourinary: reports: No Symptoms Musculoskeletal: reports: No Symptoms Integumentary: reports: No Symptoms Neurological: reports: No Symptoms Endocrine: reports: No Symptoms Hematology/Lymphatic: reports: No Symptoms Psychiatric: reports: No Symptoms Physical Examination Vital Signs: Vital Signs Temperature Pulse Rate 61 11/04/18 06:41 Respiratory Rate 18 11/04/18 07:26 Blood Pressure 158/58 L 11/04/18 06:41 O2 Sat by Pulse Oximetry (%) 99 11/04/18 07:26 Constitutional: Yes: Well Nourished, No Distress, Calm Eyes: Yes: WNL, Conjunctiva Clear, EOM Intact HENT: Yes: WNL, Atraumatic, Normocephalic Neck: Yes: WNL, Supple, Trachea Midline Cardiovascular: Yes: WNL, Regular Rate and Rhythm Respiratory: Yes: WNL, Regular, CTA Bilaterally Gastrointestinal: Yes: WNL, Normal Bowel Sounds Musculoskeletal: Yes: WNL Extremities: Yes: WNL Edema: No Peripheral Pulses WNL: Yes Integumentary: Yes: WNL Neurological: Yes: WNL, Alert, Oriented ...Motor Strength: WNL Psychiatric: Yes: WNL Problem List - Problems (1) Carotid artery disease Assessment/Plan: Left ICA stenosis 80% For CEA today Code(s): I77.9 - DISORDER OF ARTERIES AND ARTERIOLES, UNSPECIFIED
[2018-11-04] MEDS ORDERED: ceFAZolin SODIUM 1 GM VIAL IVPB ONE (08:40)
[2018-11-04] MEDS ORDERED: EPHEDRINE SULFATE/0.9% NACL/PF 50 MG/10 ML SYRINGE NR ONE (08:41)
[2018-11-04] MEDS ORDERED: ceFAZolin SODIUM 1 GM VIAL ONE (08:43)
[2018-11-04] MEDS ORDERED: HEPARIN NA (PORCINE) 5,000 UNITS/ML 1ML VIAL ONE (09:21)
[2018-11-04] MEDS ORDERED: DESFLURANE GAS 240 ML BOTTLE IH ONE (10:08)
[2018-11-04] MEDS ORDERED: GLYCOPYRROLATE 0.2 MG/1 ML VIAL ONE (10:17)
[2018-11-04] MEDS ORDERED: NEOSTIGMINE METHYLSULFATE 0.5 MG/ML - 10 ML MDV ONE (10:17)
[2018-11-04] MEDS ORDERED: POVIDONE-IODINE OINTMENT 10% - 28.4 GM TUBE ONE (10:25)
[2018-11-04] MEDS ORDERED: LABETALOL HCL 5 MG/1 ML (100MG/20 ML VIAL) ONE (10:25)
[2018-11-04] MEDS ORDERED: POVIDONE-IODINE OINTMENT 10% - 28.4 GM TUBE TP ONE (10:37)
--- NOTE | 2018-11-04 10:44 | OP ---
Operative Note - Note: Operative Date: 11/04/18 Pre-Operative Diagnosis: left ICA stenosis Operation: Left CEA Findings: 80% stenosis left ICA Post-Operative Diagnosis: Same as Pre-op Surgeon: Gentry Trevino Anesthesia: General, Fractional Estimated Blood Loss (mls): 75 Operative Report Dictated: Yes
[2018-11-04] MEDS ORDERED: ONDANSETRON 4 MG/2 ML VIAL IVPUSH PRN (10:47)
--- NOTE | 2018-11-04 11:21 | SURG ---
Surgery Bulb Farmworker Note Bulb Farmworker: Amaury Chance PA-C Date of Service: 11/04/18 Diagnosis: Left carotid stenosis Procedure: Left carotid endarterectomy I was present for the entirety of the operative procedure. For further detail, please refer to operative report. Visit type - Case Type Case Type: Scheduled - Emergency Emergency Visit: No - New patient This patient is new to me today: Yes Date on this admission: 11/04/18 - Critical Care Critical Care patient: No
[2018-11-04] MEDS ORDERED: ONDANSETRON 4 MG/2 ML VIAL IVPUSH ONE (12:40)
--- NOTE | 2018-11-04 13:35 | CONSULT ---
Consultation: HISTORY OF PRESENT ILLNESS: * HPI obtained from patient and EMR 73 year old female with a PMH of HTN, NIDDM, Hypothroidism and CAD (s/p stent) who was brought to our ICU following a L sided carotid endartectomy. REVIEW OF SYSTEMS: Patient c/o nausea w/o vomiting and L sided neck pain localized to her surgical site; denies chest pain, shortness of breath and 10 point ROS otherwise negative. PHYSICAL EXAMINATION Vital Signs - 24 hr 11/04/18 11/04/18 11/04/18 06:39 06:41 07:26 Temperature Pulse Rate 61 Respiratory 18 18 Rate Blood Pressure 158/58 L O2 Sat by Pulse 99 99 Oximetry (%) 11/04/18 11/04/18 11/04/18 10:41 10:55 11:10 Temperature 98.2 F Pulse Rate 62 64 62 Respiratory 16 16 16 Rate Blood Pressure 144/50 L 134/40 L 132/55 L O2 Sat by Pulse 94 L 93 L 93 L Oximetry (%) 11/04/18 11/04/18 11/04/18 11:25 11:40 11:55 Temperature Pulse Rate 60 60 60 Respiratory 16 16 16 Rate Blood Pressure 129/42 L 127/54 L 137/52 L O2 Sat by Pulse 98 98 100 Oximetry (%) 11/04/18 11/04/18 11/04/18 12:10 12:25 12:40 Temperature 98.2 F Pulse Rate 58 L 62 70 Respiratory 16 16 16 Rate Blood Pressure 140/54 L 138/62 137/50 L O2 Sat by Pulse 98 98 100 Oximetry (%) 11/04/18 13:10 Temperature Pulse Rate 59 L Respiratory 16 Rate Blood Pressure 119/45 L O2 Sat by Pulse Oximetry (%) General: awake, drowsy HEENT: L neck covered incision site CV: S1, S2, RRR Respiratory: CLTA B/L, no wheeze/crackle Extremity: 2+ DP pulses Laboratory Results - last 24 hr 11/04/18 11/04/18 11/04/18 05:35 07:06 08:05 POC Glucometer 141 Blood Type A POSITIVE A POSITIVE Antibody Screen Negative Active Medications Generic Name Dose Route Start Last Admin Trade Name Freq PRN Reason Stop Dose Admin Chlorhexidine Gluconate 1 applic 11/04/18 22:00 Hibiclens For Decolonization - TP HS [facility] Clopidogrel Bisulfate 75 mg 11/05/18 10:00 Plavix - PO DAILY [facility] Fentanyl 25 mcg 11/04/18 10:47 Sublimaze Injection - IVPUSH [id number] PRN PAIN-PACU ORDER X 4 DOSES ONLY Mupirocin 1 applic 11/04/18 22:00 Bactroban Ointment (For Decolonization) - NS 11/09/18 21:59 BID [facility] Ondansetron HCl 4 mg 11/04/18 10:47 Zofran Injection IVPUSH Q6H PRN NAUSEA AND/OR VOMITING ASSESSMENT/PLAN: 73 y/o female POD #0 Left Carotid endartectomy. Post operative monitoring in the ICU POD #0 Left Carotid Endarterectomy - HDS - Fentanyl for pain control; Zofran for nausea NEUROLOGIC - awake, alert - continue to monitor for any mental status changes CARDIAC # H/o CAD s/p stent - Restart patient's Clopidrogel tomorrow (11/05) # H/o HTN - BP well controlled - Hold patient's home medication ENDOCRINE - Continue home Levothyroxine - Continue home Metformin F/E/N Monitor electrolytes, replete as necessary Diabetic Diet Dispo: We will continue to follow the patient. Thank you for this consultative opportunity. Visit type - Emergency Visit Emergency Visit: No - New Patient This patient is new to me today: Yes Date on this admission: 11/04/18 - Critical Care Critical Care patient: No ATTENDING PHYSICIAN STATEMENT I saw and evaluated the patient. I reviewed the resident's note and discussed the case with the resident. I agree with the resident's findings and plan as documented. SUBJECTIVE: OBJECTIVE: ASSESSMENT AND PLAN:
--- NOTE | 2018-11-04 14:24 | OP ---
DATE OF OPERATION: 11/04/2018 PREOPERATIVE DIAGNOSIS: Left internal carotid artery stenosis. POSTOPERATIVE DIAGNOSIS: Left internal carotid artery stenosis. PROCEDURE: Left carotid endarterectomy. SURGEON: Gentry Rasmussen DO ANESTHESIA: General. BLOOD LOSS: 75 mL. CAN PUSHER: Amaury Chance PA-C Patient is a 73-year-old female who came into the office with asymptomatic carotid stenosis. She had a CTA performed preoperatively, showing 80% ICA stenosis on the left side. Patient had medicine and cardiology clearance performed and then came in as an ambulatory patient. Patient was consented for the procedure, understanding all risks, benefits, and alternatives, understanding the risks of bleeding, infection, clot formation, and stroke. Patient was then brought into the operating room, laid on the operating table in supine manner. General anesthesia was administered to the patient. We then went ahead and under ultrasound guidance visualized the bifurcation of the left carotid artery. That was marked with a skin marker on the skin, and a 5-cm incision was drawn on the superior anterior border of the sternocleidomastoid muscle. We then prepped and draped the left neck and chest in a sterile surgical manner. We then went ahead and used a number 15 blade, made a 5-cm incision. Bovie electrocautery used to control hemostasis. Using Bovie electrocautery, we were able to get through all the subcutaneous tissue and get down through the platysma muscle. We then used a Weitlaner, and we were able to retract away the internal jugular vein. We then dissected out our common facial vein, and that was ligated using 2-0 silk. We then dissected the carotid sheath, and we were able to get down to the common carotid artery. Carotid artery was dissected anterior and posteriorly, making sure that we do not injure the vagus nerve. We then went superiorly, and we were able to dissect out our superior thyroid artery and our external carotid artery. We then went superiorly and dissected out our internal carotid artery anterior and posteriorly. Vessel loops were placed around the superior thyroid artery, the external carotid artery, and the common carotid artery. At this point, 5000 units of IV heparin were administered to the patient. After 3 minutes, we then placed a vessel loop around the internal carotid artery. Once we had control of the blood vessels, we tightened our vessel loops over the superior thyroid and the external carotid artery. We then went ahead and placed clip distally on the internal carotid artery, and using a vascular clamp, we clamped the common carotid artery. We then used a number-11 blade and made an incision on the common carotid artery. We used Conrad scissors and carried the incision out from the common carotid all the way into the internal carotid artery, beyond our stenosis. We then used a [place] elevator, and we removed plaque from the common carotid to the internal carotid artery, making sure that there were no flaps, making sure that we got all the debris from the artery. We then irrigated the artery copiously. There were no flaps, and there was no loose debris. We then used an 8 x 75 Vascutek patch, and using 6-0 Prolene double-arm, we were able to suture the patch in a 4-quadrant fashion. Before tying off the last quadrant, we were able to open the internal carotid artery. There was good backbleeding as that was witnessed at the start of the procedure. We then went ahead and tied our last quadrant. We then went ahead and opened our external carotid and the superior thyroid artery. We then opened our common carotid artery. Once the common carotid was opened, we then opened our left internal carotid artery last. We then irrigated copiously. Using a Doppler, we were able to listen to a Doppler signal in the common external and internal carotid artery. Wound was copiously irrigated. Surgicel was placed, 3-0 Vicryl was used and the platysmal muscle was approximated in an interrupted manner and the skin was closed with skin radha; 4 x 4 Tegaderms were placed. Patient was then extubated. Once the patient was extubated, we were able to do a neuro check on the patient. Patient could move all 4 limbs without any deficits. The patient was alert and oriented. Patient was able to stick out her tongue without any deficits, and patient was transferred to PACU in stable condition. TOTAL BLOOD LOSS: 75 mL. GENTRY RASMUSSEN DO [id number]
[2018-11-04 16:04] LABS: URINE APPEARANCE CLEAR; URINE BILIRUBIN NEGATIVE (NEGATIVE); URINE COLOR YELLOW; URINE GLUCOSE (UA) 2+ (NEGATIVE); URINE KETONE NEGATIVE (NEGATIVE); URINE LEUK ESTERASE NEGATIVE (NEGATIVE); URINE NITRITE NEGATIVE (NEGATIVE); URINE PROTEIN NEGATIVE (NEGATIVE); URINE UROBILINOGEN 0.2 mg/dL (0.2-1.0)
[2018-11-04] MEDS ORDERED: oxyCODONE HCL 5 MG TABLET PO PRN ×2 (16:44)
[2018-11-04] MEDS ORDERED: ZOLPIDEM TARTRATE 5 MG TABLET PO PRN (16:45)
[2018-11-04] MEDS ORDERED: SODIUM CHLORIDE 1,000 ML IV SCH (16:45)
[2018-11-04] MEDS: MUPIROCIN 2% TOPICAL OINTMENT FOR DECOLONIZATION NS SCH (21:58)
[2018-11-04] MEDS ORDERED: ATORVASTATIN CA 40 MG TABLET (FP) PO SCH (22:00)
[2018-11-04] MEDS ORDERED: CHLORHEXIDINE GLUCONATE 4% CLEANSER FOR DECOLONIZATION TP SCH (22:00)
[2018-11-05] MEDS ORDERED: LEVOTHYROXINE NA 75 MCG TABLET (FP) PO SCH (07:00)
[2018-11-05] MEDS ORDERED: metFORMIN HCL 500 MG TABLET (FP) PO SCH (07:00)
[2018-11-05 07:35] VITALS: TEMP 98.2
--- NOTE | 2018-11-05 07:37 | DS ---
Physical Exam: SUBJECTIVE: Patient seen and examined. Pt states that she feels well, denies dysphagia or dypsnea. Denies any numbness or weakness. OBJECTIVE: Vital Signs Temperature 98.1 F 11/05/18 02:00 Pulse Rate 67 11/05/18 02:00 Respiratory Rate 17 11/05/18 02:00 Blood Pressure 129/53 L 11/05/18 02:00 O2 Sat by Pulse Oximetry (%) 98 11/04/18 20:19 PHYSICAL EXAM GENERAL: The patient is awake, alert, and fully oriented, in no acute distress. HEAD: Normal with no signs of trauma. EYES: PERRL, extraocular movements intact, sclera anicteric, conjunctiva clear. ENT: Ears normal, nares patent, oropharynx clear without exudates, moist mucous membranes. NECK: Trachea midline, full range of motion, supple. Dressing is clean with no erythema or discharge. Mild swelling, no pulsatile mass LUNGS: breathing comfortably, no accessory muscle use. HEART: Regular rate and rhythm ABDOMEN: Soft, nontender, nondistended, no guarding, no rebound, no hepatosplenomegaly, no masses. EXTREMITIES: warm, well-perfused, no edema. NEUROLOGICAL: Cranial nerves II through XII grossly intact. Normal speech, gait not observed. No facial droop PSYCH: Normal mood, normal affect. SKIN: Warm, dry, normal turgor, no rashes or lesions noted. LABS CBC,CMP POC Glucometer 141 UNITS (80-120) 11/04/18 07:06 HOSPITAL COURSE: 73yo F presented to the hospital for scheduled Left carotid CEA. Operation went well with no complications. Pt was admitted to the ICU for close monitoring after surgery. Pt currently has not complaints. Pt is tolerating PO , ambulating well, no neuro deficits. Pt will be discharged home with plans to continue to her plavix and follow up with Dr. Trevino in the office in 2 weeks. Date of Admission:11/04/18 Date of Discharge: 11/05/18 Minutes to complete discharge: 20 Visit type - Case Type Case Type: Scheduled - Emergency Emergency Visit: No - New patient This patient is new to me today: No - Critical Care Critical Care patient: No
--- NOTE | 2018-11-05 08:47 | PN ---
Progress Note (short form) - Note Progress Note: Vascular Surgery S/P Right CEA Doing well. Dressing removed. No neurological defecits. Having breakfast. Can be DC home today Follow up in one week in office for staple removal Gentry Trevino DO Problem List - Problems (1) Carotid artery disease Code(s): I77.9 - DISORDER OF ARTERIES AND ARTERIOLES, UNSPECIFIED
[2018-11-05 08:59] VITALS: BP 137/45; PULSE 86
[2018-11-05] MEDS ORDERED: PT OWN MED DRAWER 7, Y5N ONE (09:32)
[2018-11-05] MEDS ORDERED: CLOPIDOGREL BISULFATE 75 MG TABLET (FP) PO SCH (10:00)
[2018-11-05] MEDS ORDERED: VALSARTAN 80 MG TABLET (UD) PO SCH (10:00)
[2018-11-05] MEDS ORDERED: NEBIVOLOL 10 MG TABLET (FP) PO SCH (10:00)
[2018-11-05] MEDS ORDERED: SODIUM CHLORIDE 1 GM TABLET PO SCH (10:00)
[2018-11-05] MEDS: MUPIROCIN 2% TOPICAL OINTMENT FOR DECOLONIZATION NS SCH (10:56)
--- NOTE | 2018-11-05 11:16 | PN ---
Teaching Attending Note Name of Resident: Leno Allison ATTENDING PHYSICIAN STATEMENT I saw and evaluated the patient. I reviewed the resident's note and discussed the case with the resident. I agree with the resident's findings and plan as documented. SUBJECTIVE: Pt seen and examined in the ICU. s/p Left CEA. Denies pain, headache, focal weaknesses. Tolerating PO. OBJECTIVE: Vital Signs Period Temp Pulse Resp BP Sys/Sinclair Pulse Ox Last 24 Hr 98.0 F-98.5 F 58-86 10-92 106-157/37-75 98-100 Intake & Output 11/02/18 11/03/18 11/04/18 11/05/18 23:59 23:59 23:59 23:59 Intake Total 2195 125 Output Total 3050 Balance -855 125 Weight 45.359 kg Gen: NAD at rest Heart: RRR Lung: decreased breath sounds at the bases Abd: soft, nontender Ext: no edema Active Medications Atorvastatin Calcium (Lipitor -) 40 mg PO HS [facility] Last Admin: 11/04/18 21:57 Dose: 40 mg Chlorhexidine Gluconate (Hibiclens For Decolonization -) 1 applic TP HS [facility] Last Admin: 11/04/18 21:58 Dose: 1 applic Clopidogrel Bisulfate (Plavix -) 75 mg PO DAILY [facility] Last Admin: 11/05/18 10:56 Dose: 75 mg Levothyroxine Sodium (Synthroid -) 75 mcg PO DAILY@0700 [facility] Last Admin: 11/05/18 06:19 Dose: 75 mcg Metformin HCl (Glucophage -) 500 mg PO BID@0700,1630 [facility] Last Admin: 11/05/18 06:19 Dose: 500 mg Mupirocin (Bactroban Ointment (For Decolonization) -) 1 applic NS BID [facility] Stop: 11/09/18 21:59 Last Admin: 11/05/18 10:56 Dose: 1 applic Nebivolol (Bystolic -) 10 mg PO DAILY [facility] Last Admin: 11/05/18 10:56 Dose: 10 mg Ondansetron HCl (Zofran Injection) 4 mg IVPUSH Q6H PRN PRN Reason: NAUSEA AND/OR VOMITING Oxycodone HCl (Roxicodone -) 5 mg PO Q4H PRN PRN Reason: PAIN LEVEL 1-5 Oxycodone HCl (Roxicodone -) 10 mg PO Q4H PRN PRN Reason: PAIN LEVEL 6-10 Last Admin: 11/04/18 18:01 Dose: 10 mg Sodium Chloride (Sodium Chloride Tablet -) 1 gm PO DAILY [facility] Last Admin: 11/05/18 10:56 Dose: 1 gm Valsartan (Diovan -) 80 mg PO DAILY [facility] Last Admin: 11/05/18 10:56 Dose: 80 mg Zolpidem Tartrate (Ambien -) 5 mg PO HS PRN PRN Reason: INSOMNIA Last Admin: 11/04/18 22:44 Dose: 5 mg ASSESSMENT AND PLAN: L Carotid Stenosis s/p L CEA CAD HTN DM Hypothyroidism - continue antiplatelets - d/c arterial line - PO as tolerated - OOB to chair - d/c planning in progress
--- NOTE | 2018-11-05 11:27 | PN ---
Physical Exam: SUBJECTIVE: Patient seen and examined at the bedside. Stated that she was doing well and she did not complain of any cp, sob, abd pain, n/v/c/d, fever, chills, headaches, visual changes, lightheadedness, dizziness. Arterial line was removed this morning. Seen by surgery team and is stable for discharge home. OBJECTIVE: Vital Signs Period Temp Pulse Resp BP Sys/Sinclair Pulse Ox Last 24 Hr 98.0 F-98.5 F 58-86 10-92 106-157/37-75 98-100 GENERAL: The patient is awake, alert, and fully oriented, in no acute distress. HEAD: Normal with no signs of trauma. EYES: PERRL, extraocular movements intact, sclera anicteric, conjunctiva clear. NECK: Trachea midline, full range of motion, heather noted and dressing clean on L side of neck. LUNGS: Breath sounds equal, clear to auscultation bilaterally, no wheezes, no crackles, no accessory muscle use. HEART: Regular rate and rhythm, S1, S2 without murmur, rub. ABDOMEN: Soft, nontender, nondistended, normoactive bowel sounds, no guarding, no rebound, no masses. EXTREMITIES: 2+ pulses, warm, well-perfused, no edema. NEUROLOGICAL: Cranial nerves II through XII grossly intact. Muscle strength intact bilaterally upper and lower extremities. PSYCH: Normal mood, normal affect. SKIN: Warm, dry, normal turgor, no rashes or lesions noted. Heather noted on L side of neck, no drainage, purulence at incision site. Laboratory Results - last 24 hr 11/04/18 14:45 Urine Color Yellow Urine Appearance Clear Urine pH 6.0 Ur Specific [place] 1.009 L Urine Protein Negative Urine Glucose (UA) 2+ H Urine Ketones Negative Urine Blood Negative Urine Nitrite Negative Urine Bilirubin Negative Urine Urobilinogen 0.2 Ur Leukocyte Esterase Negative Active Medications Generic Name Dose Route Start Last Admin Trade Name Freq PRN Reason Stop Dose Admin Atorvastatin Calcium 40 mg 11/04/18 22:00 11/04/18 21:57 Lipitor - PO 40 mg HS [facility] Administration Chlorhexidine Gluconate 1 applic 11/04/18 22:00 11/04/18 21:58 Hibiclens For Decolonization - TP 1 applic HS [facility] Administration Clopidogrel Bisulfate 75 mg 11/05/18 10:00 11/05/18 10:56 Plavix - PO 75 mg DAILY [facility] Administration Levothyroxine Sodium 75 mcg 11/05/18 07:00 11/05/18 06:19 Synthroid - PO 75 mcg DAILY@0700 [facility] Administration Metformin HCl 500 mg 11/05/18 07:00 11/05/18 06:19 Glucophage - PO 500 mg BID@0700,1630 [facility] Administration Mupirocin 1 applic 11/04/18 22:00 11/05/18 10:56 Bactroban Ointment (For Decolonization) - NS 11/09/18 21:59 1 applic BID [facility] Administration Nebivolol 10 mg 11/05/18 10:00 11/05/18 10:56 Bystolic - PO 10 mg DAILY [facility] Administration Ondansetron HCl 4 mg 11/04/18 10:47 Zofran Injection IVPUSH Q6H PRN NAUSEA AND/OR VOMITING Oxycodone HCl 5 mg 11/04/18 16:44 Roxicodone - PO Q4H PRN PAIN LEVEL 1-5 Oxycodone HCl 10 mg 11/04/18 16:44 11/04/18 18:01 Roxicodone - PO 10 mg Q4H PRN Administration PAIN LEVEL 6-10 Sodium Chloride 1 gm 11/05/18 10:00 11/05/18 10:56 Sodium Chloride Tablet - PO 1 gm DAILY [facility] Administration Valsartan 80 mg 11/05/18 10:00 11/05/18 10:56 Diovan - PO 80 mg DAILY [facility] Administration Zolpidem Tartrate 5 mg 11/04/18 16:45 11/04/18 22:44 Ambien - PO 5 mg HS PRN Administration INSOMNIA ASSESSMENT/PLAN: Roseanne Harris is a 73 year old female with a PMH of HTN, NIDDM, Hypothroidism and CAD (s/p stent) who was brought to the ICU following a L sided carotid endarterectomy for continued monitoring of the airway. L carotid Endarterectomy HTN NIDDM Hypothyroidism NEUROLOGIC - awake, alert - continue to monitor for any mental status changes - oxycodone for post-op pain CARDIAC - POD Day 1 L sided carotid endarterectomy - Restart patient's Clopidrogel - restart home BP meds - restart home lipitor - clear for discharge - arterial line removed - f/u with Dr Trevino in 1 week outpatient ENDOCRINE - Continue home Levothyroxine - Continue home Metformin GI - Zofran for nausea ID - ancef post-op - no fevers post-op F/E/N - no standing fluids - no labs - sodium/diabetic diet Dispo - clear for discharge as per surgery CASE DISCUSSED WITH DR HERRERA AND SURGERY TEAM FELIX WOMACK DO - PGY-1 Visit type - Emergency Visit Emergency Visit: No - New Patient This patient is new to me today: Yes Date on this admission: 11/05/18 - Critical Care Critical Care patient: No
== END 2018-11-05 13:01 | disposition home or self-care (01) | DRG 39 ==
LOC: EDSTATUS 08:00 → JSAMEDAYSX 11-04 06:17 → JICU 11-04 12:55
PROVIDERS: ADMIT Surgery Vascular Surgery; ATTEND Surgery Vascular Surgery
PROC: 03CL0ZZ Extirpation of Matter from Left Internal Carotid Artery, Open Approach (ICD-10-PCS; 2018-11-04)
PROC: 03UJ0JZ Supplement Left Common Carotid Artery with Synthetic Substitute, Open Approach (ICD-10-PCS; 2018-11-04)
PROC: 03CJ0ZZ Extirpation of Matter from Left Common Carotid Artery, Open Approach (ICD-10-PCS; principal; 2018-11-04 08:00)
DX: I65.22 Occlusion and stenosis of left carotid artery (principal); I10 Essential (primary) hypertension; E11.9 Type 2 diabetes mellitus without complications; E03.9 Hypothyroidism, unspecified; I25.10 Atherosclerotic heart disease of native coronary artery without angina pectoris; Z98.61 Coronary angioplasty status; K21.9 Gastro-esophageal reflux disease without esophagitis
CPT/HCPCS: 81003; 82962; 86850; 86900; 86901; 94760; J1644

== ENCOUNTER 2019-02-04 17:05 | Inpatient (IN) | payer MEDICARE, OTHER ==
--- NOTE | 2019-02-04 17:52 | PDOC ---
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 73 year old female with PMH HTN, HLD, DM, hyponatremia, hypothyroidism, headaches, CAD s/p stent, GERD, former smoker sent to ED by Computational [employer]ist for "low salt". Pt reported her only complaint is a mild headache x2 days. She denied numbness, tingling, vomiting, diarrhea, abdominal pain, chest pain, shortness of breath, palpitations, lightheadedness, weakness. ROS General: denied fever, chills, generalized weakness. HEENT: denied sore throat, rhinorrhea, ear pain. Cardiovascular: denied chest pain, palpitations, syncope, diaphoresis. Respiratory: denied shortness of breath, cough, sputum production, hemoptysis. Gastrointestinal: denied abdominal pain, nausea, vomiting, diarrhea, constipation, blood in stool. Genitourinary: denied dysuria, increased urinary frequency, hematuria, urinary incontinence, flank pain. Back: denied back pain. Musculoskeletal: denied joint pain, muscle pain, joint swelling. Neurological: admitted to headache. denied dizziness, numbness, tingling, weakness. Integumentary: denied rash, laceration, abrasion. Hematologic/Lymphatic: denied bruising or bleeding. PE Constitutional: Well-nourished, Well-developed, appearing stated age. HEENT: head is normocephalic, atraumatic. EOMI. PERRLA. Neck: supple. Full ROM. Cardiovascular: regular heart rhythm. no murmurs. no pericardial friction rub. Respiratory: clear to auscultation bilaterally. no crackles, rhonchi or wheezing. no stridor. Gastrointestinal: soft, nontender. normal bowel sounds. no rebound, guarding, masses. Extremities: peripheral pulses intact. no lower extremity edema. Neurological: CN 2-12 grossly intact. moves all four extremities. Psych: awake, alert, oriented x3. follows commands. answers questions appropriately. Past History - Past Medical History Allergies/Adverse Reactions: Allergies Allergy/AdvReac Type Severity Reaction Status Date / Time No Known Allergies Allergy Verified 02/04/19 17:12 Home Medications: Ambulatory Orders Aspirin Coated [Ecotrin -] 81 mg PO DAILY #30 tablet.ec 02/15/16 Clopidogrel Bisulfate [Plavix -] 75 mg PO DAILY #30 tablet 02/15/16 Levothyroxine [Synthroid -] 75 mcg PO DAILY@0700 #30 tablet 02/15/16 Nebivolol [Bystolic -] 10 mg PO DAILY #30 tab 02/15/16 metFORMIN HCL [Glucophage -] 500 mg PO BID@0700,1630 #30 tablet 02/15/16 Atorvastatin Ca [Lipitor] 40 mg PO HS #30 tablet 09/15/18 Valsartan [Diovan] 80 mg PO DAILY #30 tablet 09/15/18 Zolpidem Tartrate [Ambien] 5 mg PO HS PRN #30 tablet MDD 1 09/15/18 - Immunization History Immunization Up to Date: Yes - Psycho Social/Smoking Cessation Hx Smoking History: Never smoked Have you smoked in the past 12 months: No Hx Alcohol Use: No Drug/Substance Use Hx: No Substance Use Type: None Hx Substance Use Treatment: No *Physical Exam - Vital Signs Last Vital Signs Temp Pulse Resp BP Pulse Ox 98 F 66 18 140/90 100 02/04/19 17:08 02/04/19 17:08 02/04/19 17:08 02/04/19 17:08 02/04/19 17:08 ED Treatment Course - LABORATORY CBC & Chemistry Diagram: 02/05/19 09:00 02/05/19 09:00 Medical Decision Making - Medical Decision Making 73 year old female with above PMH sent to ED by spray dyer for "low salt". Initial Vital Signs Temp Pulse Resp BP Pulse Ox 98 F 66 18 140/90 100 02/04/19 17:08 02/04/19 17:08 02/04/19 17:08 02/04/19 17:08 02/04/19 17:08 Afebrile. No tachycardia. No tachypnea. Mild hypertension. No hypoxia on room air. Labs ordered: CBC, CMP, Mag, Phos, TSH, UA/UC, urine Na, serum osmol, urine osmol, VBG, b-hydroxybutyrate Imaging ordered: CXR Medications ordered: normal saline bolus 1000 cc once, tylenol IV once EKG performed at 2021: rate 58, regular rhythm, normal axis, CT 210, QTc 416, no acute ST changes. CXR report: Name: DAVIN LEZAMACHELSEA DEPARTMENT OF RADIOLOGY Phys: Jory Mcginnis RESIDENT : 1945 Age: 73 Sex: F [facility] Acct: [id number] Loc: [id number] Exam Date: 02/04/19 Status: [place] [address] Unit Number: [id number] EXAM#: TYPE/EXAM: RESULT: [id number] RAD/CHEST PA LAT Chest: Hyponatremia. 2 views of the chest reveal scoliosis with convexity to the right, clear lungs, sharp angles, sclerotic knob, normal mana and normal heart. The soft tissues are intact. Acute process is not seen. Impression: Aortic plaque. Scoliosis. Clear lungs. Correlation recommended. Reported By: Leno Garland MD 02/05/19 0720 02/04/19 19:05 Laboratory Results - last 24 hr 02/04/19 02/04/19 02/04/19 18:10 18:10 18:10 Urine Color Yellow Urine Appearance Clear Urine pH 6.5 Ur Specific [place] 1.012 Urine Protein Negative Urine Glucose (UA) Negative Urine Ketones Negative Urine Blood Negative Urine Nitrite Negative Urine Bilirubin Negative Urine Urobilinogen 0.2 Ur Leukocyte Esterase Negative Urine Osmolality 350 Ur Random Sodium 43 Negative for UTI. 02/04/19 20:29 CBC WBC 10.6 K/mm3 (4.0-10.0) H 02/04/19 19:46 RBC 3.92 M/mm3 (3.60-5.2) 02/04/19 19:46 Hgb 12.4 GM/dL (10.7-15.3) 02/04/19 19:46 Hct 36.1 % (32.4-45.2) 02/04/19 19:46 MCV 92.1 fl (80-96) 02/04/19 19:46 MCH 31.6 pg (25.7-33.7) 02/04/19 19:46 MCHC 34.3 g/dl (32.0-36.0) 02/04/19 19:46 RDW 13.9 % (11.6-15.6) 02/04/19 19:46 Plt Count 501 K/MM3 (134-434) H D 02/04/19 19:46 MPV 8.1 fl (7.5-11.1) D 02/04/19 19:46 Absolute Neuts (auto) 5.4 K/mm3 (1.5-8.0) 02/04/19 19:46 Neutrophils % 51.0 % (42.8-82.8) 02/04/19 19:46 Lymphocytes % 27.5 % (8-40) 02/04/19 19:46 Monocytes % 8.9 % (3.8-10.2) 02/04/19 19:46 Eosinophils % 11.8 % (0-4.5) H 02/04/19 19:46 Basophils % 0.8 % (0-2.0) 02/04/19 19:46 Nucleated RBC % 0 % (0-0) 02/04/19 19:46 Mild leukocytosis without left shift. No anemia. VBG - no acidosis. 02/04/19 22:57 CMP Sodium 123 mmol/L (136-145) L 02/04/19 21:29 Potassium 5.1 mmol/L (3.5-5.1) 02/04/19 21:29 Chloride 93 mmol/L (98-107) L 02/04/19 21:29 Carbon Dioxide 23 mmol/L (21-32) 02/04/19 21:29 Anion Gap 8 MMOL/L (8-16) 02/04/19 21:29 BUN 23.4 mg/dL (7-18) H 02/04/19 21:29 Creatinine 1.1 mg/dL (0.55-1.3) 02/04/19 21:29 Est GFR (CKD-EPI)AfAm 57.28 02/04/19 21:29 Est GFR (CKD-EPI)NonAf 49.42 02/04/19 21:29 Random Glucose 117 mg/dL (74-106) H 02/04/19 21:29 Serum Osmolality Cancelled 02/04/19 19:46 Calcium 9.8 mg/dL (8.5-10.1) 02/04/19 21:29 Phosphorus 4.2 mg/dL (2.5-4.9) 02/04/19 21:29 Magnesium 2.0 mg/dL (1.8-2.4) 02/04/19 21:29 Total Bilirubin 0.3 mg/dL (0.2-1) 02/04/19 21:29 AST 15 U/L (15-37) 02/04/19 21:29 ALT 20 U/L (13-61) 02/04/19 21:29 Alkaline Phosphatase 77 U/L (45-117) 02/04/19 21:29 Total Protein 7.6 g/dl (6.4-8.2) 02/04/19 21:29 Albumin 4.5 g/dl (3.4-5.0) 02/04/19 21:29 Beta-Hydroxybutyrate 1.7 mg/dL (0.2-2.8) 02/04/19 19:46 TSH 3.52 uIU/ml (0.358-3.74) 02/04/19 21:29 Hyponatremia Normal potassium/mag/phos. No DKA. TSH wnl. Pt to be admitted for hyponatremia. PCP Manda --> Dr. Hwang. 02/04/19 23:[address] Hwang. Discharge - Discharge Information Problems reviewed: Yes Clinical Impression/Diagnosis: Hyponatremia Condition: Stable - Admission Yes - Follow up/Referral - Patient Discharge Instructions - Post Discharge Activity
[2019-02-04] MEDS ORDERED: ACETAMINOPHEN 1000 MG/100 ML VIAL (NON FORMULARY) IVPB ONE (18:03)
[2019-02-04] MEDS ORDERED: SODIUM CHLORIDE 1,000 ML IV STA (18:03)
[2019-02-04 18:26] LABS: PH,URINE 6.5 (5.0-8.0); URINE APPEARANCE CLEAR; URINE BILIRUBIN NEGATIVE (NEGATIVE); URINE COLOR YELLOW; URINE GLUCOSE (UA) NEGATIVE (NEGATIVE); URINE KETONE NEGATIVE (NEGATIVE); URINE LEUK ESTERASE NEGATIVE (NEGATIVE); URINE NITRITE NEGATIVE (NEGATIVE); URINE PROTEIN NEGATIVE (NEGATIVE); URINE UROBILINOGEN 0.2 mg/dL (0.2-1.0)
--- NOTE | 2019-02-04 19:14 | PDOC ---
Documentation entered by Abeba Wolf SCRIBE, acting as scribe for Eunice Mars MD. Eunice Mars MD: This documentation has been prepared by the Luciano griffiths Nirvannie, SCRIBE, under my direction and personally reviewed by me in its entirety. I confirm that the documentation accurately reflects all work, treatment, procedures, and medical decision making performed by me. Attending Attestation - Resident Resident Name: RahelJory - ED Attending Attestation I have performed the following: I have examined & evaluated the patient, The case was reviewed & discussed with the resident, I agree w/resident's findings & plan - HPI HPI: 02/04/19 18:15 73 year old female with pmhx of DM, HTN, hypothyroidism, and CAD presenting with hyponatremia found on outpatient labs. 02/04/19 22:23 - Physicial Exam PE: 02/04/19 18:10 NAD, well appearing, EOMI, PERRL, MMM, nl conjunctiva, anicteric; neck supple. lungs clear, RRR, abdomen soft nontender. Back nontender. BLAIR x4, no focal neuro deficits. No peripheral edema. normal color for ethnicity, WWP. - Medical Decision Making 02/04/19 18:15 Vital Signs Temp Pulse Resp BP Pulse Ox 98 F 66 18 140/90 100 02/04/19 17:08 02/04/19 17:08 02/04/19 17:08 02/04/19 17:08 02/04/19 17:08 EKG is sinus rhythm, nonspecific T wave abnormalities. Laboratory results remarkable for normal coags and CBC. However she does have hyponatremia 123, preserved creatinine and LFTs. Urinalysis preliminarily unremarkable, sent off for urine lites. Will admit for hyponatremia, patient appears euvolemic No indication for hypertonic saline at this time, no altered mental status seizure or neurologic deficits. Given gentle fluids here but going forward will fluid restrict and recheck her sodium, inpatient renal consultation. Admitting to Dr. Hwang service 02/04/19 22:48 02/04/19 23:06 Heart Score/ECG Review #1 ECG reviewed & interpreted by me at: 20:25 General ECG Interpretation: Sinus Rhythm, Normal Rate, Normal Intervals Compared to previous ECG there are: No significant change 02/04/19 22:43 nsr at 58 bpm, nonspecific T wave abnormalities. pr prolongation >200ms, 1st degree heart block.
[2019-02-04 20:00] LABS: VENOUS PC02 42.8 mmHg (38-52); VENOUS PH 7.36 (7.31-7.41); VENOUS PO2 < 49 mmHg (28-48)
[2019-02-04] MEDS ORDERED: ACETAMINOPHEN INJECTION 100 ML IVPB ONE (20:06)
[2019-02-04 20:10] LABS: BASO % 0.8 % (0-2.0); EOS % 11.8 % (0-4.5); HEMATOCRIT 36.1 % (32.4-45.2); HEMOGLOBIN 12.4 GM/dL (10.7-15.3); LYMPH % 27.5 % (8-40); MCH 31.6 pg (25.7-33.7); MCHC 34.3 g/dl (32.0-36.0); MEAN CELL VOLUME 92.1 fl (80-96); MEAN PLT VOLUME 8.1 fl (7.5-11.1); MONO % 8.9 % (3.8-10.2); PLATELET COUNT 501 K/MM3 (134-434); RBC 3.92 M/mm3 (3.60-5.2); RDW 13.9 % (11.6-15.6); WHITE BLOOD COUNT 10.6 K/mm3 (4.0-10.0)
[2019-02-04 22:08] LABS: INR 0.85 (0.83-1.09)
[2019-02-04 22:11] LABS: ACTIVATED PTT 31.3 SECONDS (25.2-36.5)
[2019-02-04 22:42] LABS: ALBUMIN 4.5 g/dl (3.4-5.0); BILIRUBIN,TOTAL 0.3 mg/dL (0.2-1); BLOOD UREA NITROGEN 23.4 mg/dL (7-18); CALCIUM 9.8 mg/dL (8.5-10.1); CREATININE 1.1 mg/dL (0.55-1.3); PHOSPHOROUS 4.2 mg/dL (2.5-4.9); POTASSIUM 5.1 mmol/L (3.5-5.1); TOT PROT 7.6 g/dl (6.4-8.2)
[2019-02-05] MEDS: LEVOTHYROXINE NA 75 MCG TABLET (FP) PO SCH (08:19)
[2019-02-05] MEDS: metFORMIN HCL 500 MG TABLET (FP) PO SCH ×2 (08:19→17:41)
[2019-02-05] MEDS ORDERED: PT OWN MED DRAWER 7, Y5N ONE ×2 (09:28→09:30)
[2019-02-05 09:57] LABS: BASO % 0.9 % (0-2.0); EOS % 10.1 % (0-4.5); HEMATOCRIT 36.3 % (32.4-45.2); HEMOGLOBIN 12.4 GM/dL (10.7-15.3); LYMPH % 21.3 % (8-40); MCHC 34.1 g/dl (32.0-36.0); MEAN CELL VOLUME 91.1 fl (80-96); MEAN PLT VOLUME 7.3 fl (7.5-11.1); MONO % 7.1 % (3.8-10.2); NEUT % 60.6 % (42.8-82.8); PLATELET COUNT 447 K/MM3 (134-434); RBC 3.98 M/mm3 (3.60-5.2); RDW 14.2 % (11.6-15.6); WHITE BLOOD COUNT 8.3 K/mm3 (4.0-10.0)
[2019-02-05] MEDS: ASPIRIN COATED 81 MG TABLET.EC PO SCH (10:21)
[2019-02-05] MEDS: HEPARIN NA (PORCINE) 5,000 UNITS/ML 1ML VIAL SQ SCH ×2 (10:21→21:18)
[2019-02-05] MEDS: CLOPIDOGREL BISULFATE 75 MG TABLET (FP) PO SCH (10:21)
[2019-02-05 10:22] LABS: ALBUMIN 4.4 g/dl (3.4-5.0); BILIRUBIN,TOTAL 0.6 mg/dL (0.2-1); BLOOD UREA NITROGEN 14.7 mg/dL (7-18); CALCIUM 10.4 mg/dL (8.5-10.1); TOT PROT 7.8 g/dl (6.4-8.2)
[2019-02-05] MEDS: NEBIVOLOL 10 MG TABLET (FP) PO SCH (11:41)
--- NOTE | 2019-02-05 15:22 | HP ---
Admitting History and Physical - Past Medical History Cardiovascular: Yes: CAD, HTN, Hyperlipdemia Gastrointestinal: Yes: GERD ...: No Endocrine: Yes: Diabetes Mellitus, Hypothyroidism - Past Surgical History Past Surgical History: Yes: Stent - Smoking History Smoking history: Never smoked Have you smoked in the past 12 months: No - Alcohol/Substance Use Hx Alcohol Use: No Home Medications - Allergies Allergies/Adverse Reactions: Allergies Allergy/AdvReac Type Severity Reaction Status Date / Time No Known Allergies Allergy Verified 02/04/19 17:12 - Home Medications Home Medications: Ambulatory Orders Aspirin Coated [Ecotrin -] 81 mg PO DAILY #30 tablet.ec 02/15/16 Clopidogrel Bisulfate [Plavix -] 75 mg PO DAILY #30 tablet 02/15/16 Levothyroxine [Synthroid -] 75 mcg PO DAILY@0700 #30 tablet 02/15/16 Nebivolol [Bystolic -] 10 mg PO DAILY #30 tab 02/15/16 metFORMIN HCL [Glucophage -] 500 mg PO BID@0700,1630 #30 tablet 02/15/16 Atorvastatin Ca [Lipitor] 40 mg PO HS #30 tablet 09/15/18 Valsartan [Diovan] 80 mg PO DAILY #30 tablet 09/15/18 Zolpidem Tartrate [Ambien] 5 mg PO HS PRN #30 tablet MDD 1 09/15/18 Physical Examination Vital Signs: Vital Signs Temperature 98.4 F 02/05/19 06:00 Pulse Rate 64 02/05/19 10:00 Respiratory Rate 18 02/05/19 10:00 Blood Pressure 152/54 L 02/05/19 10:00 O2 Sat by Pulse Oximetry (%) 98 02/05/19 09:00 Labs: CBC, BMP 02/05/19 09:00 02/05/19 09:00
--- NOTE | 2019-02-05 17:55 | EKG ---
Test Reason : Blood Pressure : / mmHG Vent. Rate : 058 BPM Atrial Rate : 058 BPM P-R Int : 210 ms QRS Dur : 092 ms QT Int : 424 ms P-R-T Axes : 044 -05 025 degrees QTc Int : 416 ms SINUS BRADYCARDIA WITH 1ST DEGREE A-V BLOCK INFERIOR INFARCT , AGE UNDETERMINED CANNOT RULE OUT ANTERIOR INFARCT , AGE UNDETERMINED ABNORMAL ECG WHEN COMPARED WITH ECG OF 09-SEP-2018 11:12, INFERIOR INFARCT IS NOW PRESENT Confirmed by MD Richi, Tejinder ([id number]) on 02/05/2019 5:54:58 PM Referred By: Confirmed By:Tejinder Stoddard MD
--- NOTE | 2019-02-05 19:14 | CON.NEP ---
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 for low salt in the blood she has h/o of hyponatremia S Na running in 120's not much different - Past Medical History Cardio/Vascular: Yes: CAD, HTN, Hyperlipdemia Gastrointestinal: Yes: GERD ...: No Endocrine: Yes: Diabetes Mellitus, Hypothyroidism - Past Surgical History Past Surgical History: Yes: Stent - Alcohol/Substance Use Hx Alcohol Use: No - Smoking History Smoking history: Never smoked Have you smoked in the past 12 months: No Home Medications - Allergies Allergies/Adverse Reactions: Allergies Allergy/AdvReac Type Severity Reaction Status Date / Time No Known Allergies Allergy Verified 02/04/19 17:12 - Home Medications Home Medications: Ambulatory Orders Aspirin Coated [Ecotrin -] 81 mg PO DAILY #30 tablet.ec 02/15/16 Clopidogrel Bisulfate [Plavix -] 75 mg PO DAILY #30 tablet 02/15/16 Levothyroxine [Synthroid -] 75 mcg PO DAILY@0700 #30 tablet 02/15/16 Nebivolol [Bystolic -] 10 mg PO DAILY #30 tab 02/15/16 metFORMIN HCL [Glucophage -] 500 mg PO BID@0700,1630 #30 tablet 02/15/16 Atorvastatin Ca [Lipitor] 40 mg PO HS #30 tablet 09/15/18 Valsartan [Diovan] 80 mg PO DAILY #30 tablet 09/15/18 Zolpidem Tartrate [Ambien] 5 mg PO HS PRN #30 tablet MDD 1 09/15/18 Nephrology Consult - Height Height: 5 ft 2 in - Weight Weight: 109 lb 6.4 oz - BMI Body Mass Index (BMI): 20.0 - Lab Results CBC,BMP: CBC, BMP 02/05/19 09:00 02/05/19 09:00 Anion Gap: Anion Gap Anion Gap 8 MMOL/L (8-16) 02/05/19 09:00 - Physical Examination Vital Signs: Vital Signs Temperature 97.3 F L 02/05/19 18:25 Pulse Rate 65 02/05/19 18:25 Respiratory Rate 18 02/05/19 18:25 Blood Pressure 139/50 L 02/05/19 18:25 O2 Sat by Pulse Oximetry (%) 98 02/05/19 09:00 Assessment/Plan 73 y/o F probably asymptomatic admitted with hyponatremia Na 123 today her serum sodium is 130 she has labs in this hosp her Na is at baseline or better probably reset osmostat and water drinking her tsh is noemal r/o hypovolemia PMH HTN, HLD, DM, chronic hyponatremia, hypothyroidism, headaches, CAD s/p stent, GERD,
[2019-02-05] MEDS: ATORVASTATIN CA 40 MG TABLET (FP) PO SCH (21:18)
[2019-02-06] MEDS: LEVOTHYROXINE NA 75 MCG TABLET (FP) PO SCH (06:09)
[2019-02-06] MEDS: metFORMIN HCL 500 MG TABLET (FP) PO SCH ×2 (06:09→17:34)
[2019-02-06] MEDS ORDERED: PT OWN MED DRAWER 7, Y5N ONE (08:44)
[2019-02-06] MEDS: HEPARIN NA (PORCINE) 5,000 UNITS/ML 1ML VIAL SQ SCH ×2 (09:17→21:35)
[2019-02-06] MEDS: ASPIRIN COATED 81 MG TABLET.EC PO SCH (09:17)
[2019-02-06] MEDS: CLOPIDOGREL BISULFATE 75 MG TABLET (FP) PO SCH (09:17)
[2019-02-06] MEDS: NEBIVOLOL 10 MG TABLET (FP) PO SCH (12:08)
[2019-02-06 13:18] LABS: BASO % 0.9 % (0-2.0); EOS % 7.8 % (0-4.5); HEMATOCRIT 35.4 % (32.4-45.2); HEMOGLOBIN 11.9 GM/dL (10.7-15.3); LYMPH % 33.8 % (8-40); MCH 30.7 pg (25.7-33.7); MCHC 33.6 g/dl (32.0-36.0); MEAN CELL VOLUME 91.5 fl (80-96); MEAN PLT VOLUME 7.3 fl (7.5-11.1); MONO % 7.7 % (3.8-10.2); NEUT % 49.8 % (42.8-82.8); PLATELET COUNT 454 K/MM3 (134-434); RBC 3.87 M/mm3 (3.60-5.2); RDW 14.2 % (11.6-15.6); WHITE BLOOD COUNT 7.9 K/mm3 (4.0-10.0)
[2019-02-06 13:36] LABS: ALBUMIN 4.2 g/dl (3.4-5.0); BILIRUBIN,TOTAL 0.4 mg/dL (0.2-1); BLOOD UREA NITROGEN 21.7 mg/dL (7-18); CALCIUM 9.7 mg/dL (8.5-10.1); CREATININE 1.2 mg/dL (0.55-1.3); POTASSIUM 4.9 mmol/L (3.5-5.1); TOT PROT 7.2 g/dl (6.4-8.2)
--- NOTE | 2019-02-06 21:26 | PN ---
Progress Note (short form) - Note Progress Note: 73 y/o F probably asymptomatic admitted with hyponatremia Na 123 today her serum sodium is 130 she has labs in this hosp her Na is at baseline or better probably reset osmostat and water drinking her tsh is noemal r/o hypovolemia PMHx: HTN, HLD, DM, chronic hyponatremia, hypothyroidism, headaches, CAD s/p stent, GERD, Current Medications Aspirin (Ecotrin -) 81 mg PO DAILY [facility] Last Admin: 02/06/19 09:17 Dose: 81 mg Atorvastatin Calcium (Lipitor -) 40 mg PO HS [facility] Last Admin: 02/05/19 21:18 Dose: 40 mg Clopidogrel Bisulfate (Plavix -) 75 mg PO DAILY [facility] Last Admin: 02/06/19 09:17 Dose: 75 mg Heparin Sodium (Porcine) (Heparin -) 5,000 unit SQ BID [facility] Last Admin: 02/06/19 09:17 Dose: 5,000 unit Levothyroxine Sodium (Synthroid -) 75 mcg PO DAILY@0700 [facility] Last Admin: 02/06/19 06:09 Dose: 75 mcg Metformin HCl (Glucophage -) 500 mg PO BID@0700,1630 [facility] Last Admin: 02/06/19 17:34 Dose: 500 mg Nebivolol (Bystolic -) 10 mg PO DAILY [facility] Last Admin: 02/06/19 12:08 Dose: 10 mg Last Vital Signs Temp Pulse Resp BP Pulse Ox 98.2 F 62 20 124/60 99 02/06/19 18:09 02/06/19 18:09 02/06/19 18:09 02/06/19 18:09 02/06/19 09:00 lungs clear Heart reg abd soft nontender ext no edema CBC, BMP 02/06/19 12:37 02/06/19 12:37 IMP chronic hyponatremia improved after admission Plan- f/u cmp
[2019-02-06] MEDS ORDERED: MELATONIN 5 MG TABLETS PO ONE (22:00)
[2019-02-06] MEDS: ATORVASTATIN CA 40 MG TABLET (FP) PO SCH (22:11)
--- NOTE | 2019-02-06 22:30 | PN ---
Progress Note, Physician - Current Medication List Current Medications: Active Medications Aspirin (Ecotrin -) 81 mg PO DAILY [facility] Last Admin: 02/06/19 09:17 Dose: 81 mg Atorvastatin Calcium (Lipitor -) 40 mg PO HS [facility] Last Admin: 02/06/19 22:11 Dose: 40 mg Clopidogrel Bisulfate (Plavix -) 75 mg PO DAILY [facility] Last Admin: 02/06/19 09:17 Dose: 75 mg Heparin Sodium (Porcine) (Heparin -) 5,000 unit SQ BID [facility] Last Admin: 02/06/19 21:35 Dose: 5,000 unit Levothyroxine Sodium (Synthroid -) 75 mcg PO DAILY@0700 [facility] Last Admin: 02/06/19 06:09 Dose: 75 mcg Metformin HCl (Glucophage -) 500 mg PO BID@0700,1630 [facility] Last Admin: 02/06/19 17:34 Dose: 500 mg Nebivolol (Bystolic -) 10 mg PO DAILY [facility] Last Admin: 02/06/19 12:08 Dose: 10 mg - Objective Vital Signs: Vital Signs Temperature 98.2 F 02/06/19 18:09 Pulse Rate 62 02/06/19 18:09 Respiratory Rate 20 02/06/19 18:09 Blood Pressure 124/60 02/06/19 18:09 O2 Sat by Pulse Oximetry (%) 99 02/06/19 09:00 Labs: CBC, BMP 02/06/19 12:37 02/06/19 12:37 INR, PTT INR 0.85 (0.83-1.09) 02/04/19 21:29
[2019-02-07] MEDS: metFORMIN HCL 500 MG TABLET (FP) PO SCH (06:09)
[2019-02-07] MEDS: LEVOTHYROXINE NA 75 MCG TABLET (FP) PO SCH (06:11)
[2019-02-07 09:00] LABS: ALBUMIN 3.9 g/dl (3.4-5.0); BILIRUBIN,TOTAL 0.6 mg/dL (0.2-1); BLOOD UREA NITROGEN 18.7 mg/dL (7-18); CALCIUM 9.8 mg/dL (8.5-10.1); CREATININE 1.1 mg/dL (0.55-1.3); POTASSIUM 5.2 mmol/L (3.5-5.1)
[2019-02-07 09:09] VITALS: BP 117/58; PULSE 64; TEMP 98.1
[2019-02-07] MEDS ORDERED: SODIUM ZIRCONIUM CYCLOSILICATE (LOKELMA) 5 GM PACKET PO ONE (09:44)
--- NOTE | 2019-02-07 09:44 | PN ---
Progress Note, Physician History of Present Illness: Pt seen and examined at bedside. SHe is awake and alert. SHe denies shortness of breath. - Current Medication List Current Medications: Active Medications Aspirin (Ecotrin -) 81 mg PO DAILY [facility] Last Admin: 02/06/19 09:17 Dose: 81 mg Atorvastatin Calcium (Lipitor -) 40 mg PO HS [facility] Last Admin: 02/06/19 22:11 Dose: 40 mg Clopidogrel Bisulfate (Plavix -) 75 mg PO DAILY [facility] Last Admin: 02/06/19 09:17 Dose: 75 mg Heparin Sodium (Porcine) (Heparin -) 5,000 unit SQ BID [facility] Last Admin: 02/06/19 21:35 Dose: 5,000 unit Levothyroxine Sodium (Synthroid -) 75 mcg PO DAILY@0700 [facility] Last Admin: 02/07/19 06:11 Dose: 75 mcg Metformin HCl (Glucophage -) 500 mg PO BID@0700,1630 [facility] Last Admin: 02/07/19 06:09 Dose: 500 mg Nebivolol (Bystolic -) 10 mg PO DAILY [facility] Last Admin: 02/06/19 12:08 Dose: 10 mg - Objective Vital Signs: Vital Signs Temperature 98.1 F 02/07/19 09:08 Pulse Rate 64 02/07/19 09:08 Respiratory Rate 20 02/07/19 09:08 Blood Pressure 117/58 L 02/07/19 09:08 O2 Sat by Pulse Oximetry (%) 99 02/06/19 09:00 Constitutional: Yes: Calm Eyes: Yes: Conjunctiva Clear HENT: Yes: Atraumatic Neck: Yes: Supple Cardiovascular: Yes: S1, S2 Respiratory: Yes: CTA Bilaterally Gastrointestinal: Yes: Soft Genitourinary: Yes: WNL Musculoskeletal: Yes: WNL Edema: No Neurological: Yes: Oriented Psychiatric: Yes: Oriented Labs: CBC, BMP 02/06/19 12:37 02/07/19 08:06 INR, PTT INR 0.85 (0.83-1.09) 02/04/19 21:29 Assessment/Plan Current Medications Generic Name Dose Route Start Last Admin Trade Name Freq PRN Reason Stop Dose Admin Aspirin 81 mg 02/05/19 10:00 02/06/19 09:17 Ecotrin - PO 81 mg DAILY [facility] Administration Atorvastatin Calcium 40 mg 02/05/19 22:00 02/06/19 22:11 Lipitor - PO 40 mg HS JEREMY Administration Clopidogrel Bisulfate 75 mg 02/05/19 10:00 02/06/19 09:17 Plavix - PO 75 mg DAILY JEREMY Administration Heparin Sodium (Porcine) 5,000 unit 02/05/19 10:00 02/06/19 21:35 Heparin - SQ 5,000 unit BID JEREMY Administration Levothyroxine Sodium 75 mcg 02/05/19 07:00 02/07/19 06:11 Synthroid - PO 75 mcg DAILY@0700 JEREMY Administration Metformin HCl 500 mg 02/05/19 07:00 02/07/19 06:09 Glucophage - PO 500 mg BID@0700,1630 JEREMY Administration Nebivolol 10 mg 02/05/19 10:00 02/06/19 12:08 Bystolic - PO 10 mg DAILY JEREMY Administration Laboratory Tests 09/13/18 09/14/18 02/04/19 06:47 07:49 18:10 Sodium 130 L 130 L Potassium Serum Osmolality TSH Urine Protein Negative Urine Blood Negative Urine Osmolality Ur Random Sodium 02/04/19 02/04/19 02/04/19 18:10 18:10 21:29 Sodium 123 L Potassium Serum Osmolality 271 L TSH 3.52 Urine Protein Urine Blood Urine Osmolality 350 Ur Random Sodium 43 02/07/19 08:06 Sodium 130 L Potassium 5.2 H Serum Osmolality TSH Urine Protein Urine Blood Urine Osmolality Ur Random Sodium Impression 1. hyponatremia - euvolemic 2. htn 3. dm 4. hyperkalemia 5. cad 6. hypothyroidism Plan - restrict free water - encourage po intake - age appropriate cancer screening - monitor sodium - will give a dose of lokelma and repeat potassium - will need outpt follow up - sodium at baseline
[2019-02-07] MEDS ORDERED: PT OWN MED DRAWER 7, Y5N ONE (10:26)
[2019-02-07] MEDS: ASPIRIN COATED 81 MG TABLET.EC PO SCH (10:28)
[2019-02-07] MEDS: CLOPIDOGREL BISULFATE 75 MG TABLET (FP) PO SCH (10:28)
[2019-02-07] MEDS: NEBIVOLOL 10 MG TABLET (FP) PO SCH (10:28)
[2019-02-07] MEDS: HEPARIN NA (PORCINE) 5,000 UNITS/ML 1ML VIAL SQ SCH (10:28)
[2019-02-07 13:48] LABS: BLOOD UREA NITROGEN 21.6 mg/dL (7-18); CALCIUM 9.6 mg/dL (8.5-10.1); CREATININE 1.2 mg/dL (0.55-1.3); POTASSIUM 4.8 mmol/L (3.5-5.1)
--- NOTE | 2019-02-07 14:14 | PN ---
Progress Note (short form) - Note Progress Note: Laboratory Tests 02/07/19 13:00 Sodium 131 L Potassium 4.8 Chloride 101 Anion Gap 6 L BUN 21.6 H Creatinine 1.2 - potassium is improved - sodium at baseline
== END 2019-02-07 15:06 | disposition home or self-care (01) | DRG 641 ==
LOC: JER 17:05 → JERBED 23:05 → J5S 02-05 06:55
PROVIDERS: ADMIT Internal Medicine; ATTEND Internal Medicine
DX: E87.1 Hypo-osmolality and hyponatremia (principal); E78.5 Hyperlipidemia, unspecified; E11.9 Type 2 diabetes mellitus without complications; I25.10 Atherosclerotic heart disease of native coronary artery without angina pectoris; K21.9 Gastro-esophageal reflux disease without esophagitis; E87.5 Hyperkalemia; E03.9 Hypothyroidism, unspecified; I10 Essential (primary) hypertension; Z98.61 Coronary angioplasty status
CPT/HCPCS: 36415; 71046-TC-FY; 80048; 80053; 81003; 82010; 82803; 82962; 83735; 83930; 83935; 84100; 84300; 84443; 85025; 85610; 85730; 86850; 86900; 86901; 87086; 93005; 93010; 99284-25; J0131; J1644; J7030

== ENCOUNTER 2020-11-27 11:02 | Emergency (ER) | payer MEDICARE, OTHER ==
[2020-11-27 11:11] VITALS: TEMP 97.8; BMI 38.0
[2020-11-27] MEDS ORDERED: ASPIRIN 81 MG CHEWABLE TABLETS ONE (11:35)
[2020-11-27] MEDS ORDERED: HEPARIN NA (PORCINE) 5,000 UNITS/ML 1ML VIAL IVPUSH ONE (11:41)
[2020-11-27] MEDS ORDERED: CLOPIDOGREL BISULFATE 300 MG TABLET PO ONE (11:45)
[2020-11-27] MEDS ORDERED: CLOPIDOGREL BISULFATE 300 MG TABLET ONE (11:46)
[2020-11-27] MEDS ORDERED: CLOPIDOGREL BISULFATE 75 MG TABLET (FP) ONE (11:47)
[2020-11-27] MEDS ORDERED: HEPARIN NA (PORCINE) 5,000 UNITS/ML 1ML VIAL ONE (11:47)
[2020-11-27 11:59] VITALS: BP 125/52; PULSE 71
[2020-11-27 12:13] LABS: BASO % 0.5 % (0-2.0); EOS % 0.5 % (0-4.5); HEMATOCRIT 34.4 % (32.4-45.2); HEMOGLOBIN 11.9 GM/dL (10.7-15.3); LYMPH % 15.8 % (8-40); MCH 31.9 pg (25.7-33.7); MCHC 34.7 g/dl (32.0-36.0); MEAN CELL VOLUME 91.8 fl (80-96); MEAN PLT VOLUME 7.4 fl (7.5-11.1); MONO % 5.8 % (3.8-10.2); NEUT % 77.4 % (42.8-82.8); PLATELET COUNT 403 10^3/uL (134-434); RBC 3.75 M/mm3 (3.60-5.2); RDW 14.5 % (11.6-15.6); WHITE BLOOD COUNT 9.4 K/mm3 (4.0-10.0)
[2020-11-27 12:18] LABS: CHLORIDE 83 mmol/L (98-107)
[2020-11-27 12:19] LABS: INR 0.85 (0.83-1.09); PROTHROMBIN TIME (PATIENT) 10.5 SEC (9.7-13.0)
[2020-11-27 12:20] LABS: CALCIUM 9.6 mg/dL (8.5-10.1)
[2020-11-27 12:21] LABS: ALBUMIN 4.2 g/dl (3.4-5.0); BLOOD UREA NITROGEN 13.7 mg/dL (7-18); CO2 25 mmol/L (21-32); GLUCOSE,RANDOM 225 mg/dL (74-106); MAGNESIUM 2.3 mg/dL (1.8-2.4)
[2020-11-27 12:22] LABS: ACTIVATED PTT 30.1 SECONDS (25.2-36.5)
[2020-11-27 12:23] LABS: CREATININE 1.2 mg/dL (0.55-1.3); SGOT/AST 48 U/L (15-37); SGPT/ALT 34 U/L (13-61)
[2020-11-27 12:25] LABS: BILIRUBIN,TOTAL 0.9 mg/dL (0.2-1)
[2020-11-27 12:26] LABS: TOT PROT 7.9 g/dl (6.4-8.2)
[2020-11-27 12:27] LABS: ALK PHOS 73 U/L (45-117)
[2020-11-27 13:40] LABS: ANION GAP 10 MMOL/L (8-16); SODIUM 118 mmol/L (136-145)
== END 2020-11-27 12:08 | disposition short-term general hospital (02) ==
LOC: JER 11:02
PROC: 3E033GC Introduction of Other Therapeutic Substance into Peripheral Vein, Percutaneous Approach (ICD-10-PCS; principal; 2020-11-27)
DX: I21.3 ST elevation (STEMI) myocardial infarction of unspecified site (principal)
CPT/HCPCS: 36415; 80053; 82550; 82553; 83735; 83880; 84484; 85025; 85610; 85730; 93005; 93010; 99285-25; C9803; J1644; U0003; U0005